=== PATIENT | male | born 1985 | race Caucasian/White ===

== ENCOUNTER 2017-01-21 13:16 | Emergency (ER) | payer MEDICARE, MEDICAID ==
[2017-01-21] MEDS ORDERED: ZYPREXA10 MG PO (13:20)
[2017-01-21] MEDS ORDERED: ZYPREXA20 MG PO (13:20)
--- NOTE | 2017-01-21 15:39 | EKG ---
[facility] [address] [place] [address] Signed Normal sinus rhythm Normal ECG No previous ECGs available Confirmed by DIMITRI STAPLES MD ([id number]) on 01/21/2017 3:39:34 PM Electronically Signed By: DIMITRI STAPLES MD 01/21/17 1539 PATIENT NAME: RADHA GOOD Electrocardiogram DATE OF : 83 PHYSICIAN: DIMITRI STAPLES MD REPORT #: [id number] REPORT IS CONFIDENTIAL AND NOT TO BE RELEASED WITHOUT AUTHORIZATION
== END 2017-01-22 20:10 ==
LOC: ED 13:16
DX: T14.91 Suicide attempt (principal); S92.515A Nondisplaced fracture of proximal phalanx of left lesser toe(s), initial encounter for closed fracture; S80.212A Abrasion, left knee, initial encounter; S80.211A Abrasion, right knee, initial encounter; S90.811A Abrasion, right foot, initial encounter; M25.512 Pain in left shoulder; M54.2 Cervicalgia; Y93.9 Activity, unspecified; Y92.9 Unspecified place or not applicable; Y99.9 Unspecified external cause status; Z79.899 Other long term (current) drug therapy
CPT/HCPCS: 71010; 72125; 73030; 73630; 80053; 81001; 82150; 82550; 84443; 84484; 85025; 85610; 85730; 86850; 86900; 86901; 90471; 90715; 93005; 93010; 96374; 96375; 99285; G0480; J1170; J1885; J2405; J7030

== ENCOUNTER 2017-02-08 01:27 | Emergency (ER) | payer MEDICARE, MEDICAID ==
[~2017-02-08] VITALS: Ht 185.4 cm; Wt 104.3 kg
[~2017-02-08 01:27] MED LIST: ZYPREXA10 MG PO; ZYPREXA20 MG PO
[2017-02-08] MEDS ORDERED: LITHIUM CARBON450 MG PO (01:42)
[2017-02-08] MEDS ORDERED: KEFLEX500 MG PO (01:44)
== END 2017-02-08 02:06 | disposition home or self-care (01) ==
LOC: ED 01:27
DX: L08.9 Local infection of the skin and subcutaneous tissue, unspecified (principal); S90.812D Abrasion, left foot, subsequent encounter; Z86.14 Personal history of Methicillin resistant Staphylococcus aureus infection; F31.9 Bipolar disorder, unspecified; F17.200 Nicotine dependence, unspecified, uncomplicated; Z79.899 Other long term (current) drug therapy; V49.9XXD Car occupant (driver) (passenger) injured in unspecified traffic accident, subsequent encounter
CPT/HCPCS: 99283

== ENCOUNTER 2017-06-17 19:45 | Emergency (ER) | payer MEDICARE, MEDICAID ==
[~2017-06-17] VITALS: Ht 185.4 cm; Wt 104.3 kg
[~2017-06-17 19:45] MED LIST changes: +KEFLEX500 MG PO; +LITHIUM CARBON450 MG PO
[2017-06-17] MEDS ORDERED: VENTOLIN HFA18 GM INH (23:51)
[2017-06-17] MEDS ORDERED: ZYPREXA10 MG PO (23:51)
== END 2017-06-18 00:05 | disposition home or self-care (01) ==
LOC: ED 19:45
DX: Z76.0 Encounter for issue of repeat prescription (principal); F25.0 Schizoaffective disorder, bipolar type; Z88.8 Allergy status to other drugs, medicaments and biological substances; Z79.899 Other long term (current) drug therapy
CPT/HCPCS: 99281

== ENCOUNTER 2018-10-02 12:54 | Emergency (ER) | payer MEDICARE, OTHER ==
[~2018-10-02] VITALS: Ht 185.4 cm; Wt 104.3 kg
[~2018-10-02 12:54] MED LIST changes: +LITHIUM CARBON300 MG PO; +METOPROLOL TART50 MG PO; +SEROQUEL300 MG PO; +VENTOLIN HFA18 GM INH
[2018-10-02] MEDS ORDERED: LITHIUM CARBON300 M1 PO (13:09)
--- OUTSIDE RECORDS SUMMARY | 2018-10-02 13:16 | XMS ---
PreManage Notification: RADHA GOOD Security Animal Services Officer Events No recent Security Events currently on file CRITERIA MET - [facility] - Has Care Guidelines - PDMP - [facility] - 2 Visits in 30 Days CARE PROVIDERS Savage Barragan [facility] 04/15/2018-Current PHONE: Unknown [facility] PHONE: Unknown Jazmyn has no Care Guidelines for this patient. Care History Medical/Surgical 04/15/2018 [facility] - PATIENT HAS AN APT WITH DR BARRAGAN ON 04/24 FOR FOLLOW UP TO ED VISIT. - Patient is currently established with [facility]. If patient is seen in the ED during business hours. Please contact CHWs at [facility]. Care Recommendation: This patient has had 5 or more Emergency Department visits in the last 12 months.\T\nbsp; Patient requires education on the scope and purpose of the ED as an acute care provider not a Primary Care Provider and should not be utilized for chronic conditions.\T\nbsp; These are guidelines and the provider should exercise clinical judgment when providing care. E.Oriana VISIT COUNT (12 MO.) [address] [place] [address] NANCY Vásquez TOTAL 8 NOTE: Visits indicate total known visits. ED/UCC VISIT TRACKING (12 MO.) 10/02/2018 12:55 [facility] [place] TYPE: Emergency COMPLAINT: - SOB, DIZZINESS 09/22/2018 14:25 [facility] [place] TYPE: Emergency COMPLAINT: - MEDICAL CLEARANCE DIAGNOSES: - Allergy status to other drugs, medicaments and biological substances status - Bipolar disorder, unspecified - Nicotine dependence, unspecified, uncomplicated - Other terminal operator (current) drug therapy 06/01/2018 22:08 [facility] [place] TYPE: Emergency COMPLAINT: - CHEST PAIN DIAGNOSES: - Acute bronchitis, unspecified - Schizoaffective disorder, unspecified - Chest pain, unspecified - Other terminal operator (current) drug therapy - Bipolar disorder, unspecified - Allergy status to other drugs, medicaments and biological substances status 05/14/2018 11:07 [facility] [place] TYPE: Emergency COMPLAINT: - L LEG WOUND/NON INJURY DIAGNOSES: - Encounter for other general examination 04/11/2018 14:14 [facility] [place] TYPE: Emergency COMPLAINT: - SEIZURE DIAGNOSES: - Unspecified convulsions - Bipolar disorder, unspecified - Allergy status to other drugs, medicaments and biological substances status - Other custodial (current) drug therapy 01/13/2018 17:39 [facility] [place] TYPE: Emergency COMPLAINT: - MED REFILL DIAGNOSES: - Bipolar disorder, unspecified - Allergy status to other drugs, medicaments and biological substances status - Encounter for issue of repeat prescription - Schizophrenia, unspecified - Other custodial (current) drug therapy 01/02/2018 09:46 [facility] TYPE: Emergency DIAGNOSES: - Shaking - chest pain 11/18/2017 11:47 [facility] [place] TYPE: Emergency COMPLAINT: - PNEUMONIA SENT FROM [facility] DIAGNOSES: - Hemoptysis - Acute bronchitis, unspecified INPATIENT VISIT TRACKING (12 MO.) No inpatient visits to display in this time frame [email or web address]
[2018-10-02] MEDS ORDERED: DOXYCYCLINE HY100 MG PO (14:58)
--- NOTE | 2018-10-02 16:34 | EKG ---
[facility] [address] [facility] [place], [place] [address] Signed Normal sinus rhythm Nonspecific ST abnormality Abnormal ECG When compared with ECG of 01-JUN-2018 22:14, No significant change was found Confirmed by SANDRA MORALES DO ([id number]) on 10/02/2018 4:34:00 PM Electronically Signed By: SANDRA MORALES DO 10/02/18 1634 PATIENT NAME: RADHA GOOD Electrocardiogram DATE OF : 83 PHYSICIAN: SANDRA MORALES DO REPORT #: [id number] REPORT IS CONFIDENTIAL AND NOT TO BE RELEASED WITHOUT AUTHORIZATION
== END 2018-10-02 15:19 | disposition home or self-care (01) ==
LOC: ED 12:54
DX: J18.9 Pneumonia, unspecified organism (principal); F31.9 Bipolar disorder, unspecified; F25.0 Schizoaffective disorder, bipolar type; Z88.8 Allergy status to other drugs, medicaments and biological substances; Z79.899 Other long term (current) drug therapy
CPT/HCPCS: 71046; 80053; 80178; 85025; 93005; 93010; 96360; 99284-25; J7030

== ENCOUNTER 2019-04-22 02:49 | Emergency (ER) | payer MEDICARE, OTHER ==
[~2019-04-22] VITALS: Ht 185.4 cm; Wt 108.9 kg
[~2019-04-22 02:49] MED LIST changes: +DOXYCYCLINE HY100 MG PO; +LITHIUM CARBON300 M1 PO
--- OUTSIDE RECORDS SUMMARY | 2019-04-22 02:52 | XMS ---
PreManage Notification: RADHA GOOD Security Medical Translator Events No recent Security Events currently on file CRITERIA MET - [facility] - Has Care Guidelines - PDMP CARE PROVIDERS Savage Barragan [facility] 04/15/2018-Current PHONE: Unknown [address] Primary Care Current PHONE: Unknown Guidelines Source: [facility] Guidelines Date: 10/03/2018 Care Coordination: Currently engaged in mental health services with [employer].\T\nbsp; Please contact [employer] with mental health concerns.\T\nbsp; [facility]: \T\nbsp; [phone]\T\nbsp; Ale[place]: [phone]. Care History Medical/Surgical 04/15/2018 [facility] - PATIENT HAS AN APT WITH DR BARRAGAN ON 04/24 FOR FOLLOW UP TO ED VISIT. - Patient is currently established with [facility]. If patient is seen in the ED during business hours. Please contact CHWs at [facility]. Care Recommendation: This patient has had 5 or more Emergency Department visits in the last 12 months.\T\nbsp; Patient requires education on the scope and purpose of the ED as an acute care provider not a Primary Care Provider and should not be utilized for chronic conditions.\T\nbsp; These are guidelines and the provider should exercise clinical judgment when providing care. E.D. VISIT COUNT (12 MO.) 5 NANCY Vásquez TOTAL 5 NOTE: Visits indicate total known visits. ED/UCC VISIT TRACKING (12 MO.) 04/22/2019 02:49 [facility] [place] TYPE: Emergency COMPLAINT: - OVERDOSE 10/02/2018 12:55 [facility] [place] TYPE: Emergency COMPLAINT: - SOB, DIZZINESS DIAGNOSES: - Dizziness and giddiness - Schizoaffective disorder, bipolar type - Bipolar disorder, unspecified - Allergy status to oth drug/meds/biol subst status - Other long term care social worker (current) drug therapy - Pneumonia, unspecified organism 09/22/2018 14:25 [facility] [place] TYPE: Emergency COMPLAINT: - MEDICAL CLEARANCE DIAGNOSES: - Allergy status to oth drug/meds/biol subst status - Bipolar disorder, unspecified - Nicotine dependence, unspecified, uncomplicated - Other long term care social worker (current) drug therapy 06/01/2018 22:08 [facility] [place] TYPE: Emergency COMPLAINT: - CHEST PAIN DIAGNOSES: - Acute bronchitis, unspecified - Schizoaffective disorder, unspecified - Chest pain, unspecified - Other long term care social worker (current) drug therapy - Bipolar disorder, unspecified - Allergy status to oth drug/meds/biol subst status 05/14/2018 11:07 [facility] [place] TYPE: Emergency COMPLAINT: - L LEG WOUND/NON INJURY DIAGNOSES: - Encounter for other general examination INPATIENT VISIT TRACKING (12 MO.) No inpatient visits to display in this time frame [id number]
[2019-04-22] MEDS ORDERED: SEROQUEL XR400 MG PO (02:58)
[2019-04-22] MEDS ORDERED: INDERAL LA120 MG PO (03:00)
[2019-04-22] MEDS ORDERED: LATUDA60 MG PO (03:00)
[2019-04-22] MEDS ORDERED: BUSPIRONE HCL15 MG PO (03:01)
[2019-04-22] MEDS ORDERED: VIAGRA100 MG PO (03:01)
== END 2019-04-22 03:30 | disposition home or self-care (01) ==
LOC: ED 02:49
DX: T56.891A Toxic effect of other metals, accidental (unintentional), initial encounter (principal); F31.9 Bipolar disorder, unspecified; F25.9 Schizoaffective disorder, unspecified; Z88.8 Allergy status to other drugs, medicaments and biological substances; Z79.899 Other long term (current) drug therapy
CPT/HCPCS: 99283

== ENCOUNTER 2019-07-21 21:20 | Emergency (ER) | payer MEDICARE, OTHER ==
[~2019-07-21] VITALS: Ht 188 cm; Wt 99.8 kg
[~2019-07-21 21:20] MED LIST changes: +BUSPIRONE HCL15 MG PO; +INDERAL LA120 MG PO; +LATUDA60 MG PO; +SEROQUEL XR400 MG PO; +VIAGRA100 MG PO
--- OUTSIDE RECORDS SUMMARY | 2019-07-21 21:24 | XMS ---
PreManage Notification: RADHA GOOD Security Filtration Operator Events No recent Security Events currently on file CRITERIA MET - [facility] CARE PROVIDERS LORI RAMIREZ Nurse Practitioner: Family 04/22/2019-Current PHONE: Unknown Savage Barragan [facility] 04/15/2018-Current PHONE: Unknown [facility] [address] PHONE: Unknown Guidelines Source: [facility] Guidelines Date: 10/03/2018 Care Coordination: Currently engaged in mental health services with [facility].\T\nbsp; [facility].\T\nbsp; [place] [facility]: \T\nbsp; [phone]\T\nbsp; [place]: [phone]. Care History Medical/Surgical 04/15/2018 [facility] - PATIENT CHANGING PCP- TO LORI RAMIREZ. - Patient is currently established with [facility]. If patient is seen in the ED during business hours. Please contact CHWs at [facility]. Care Recommendation: This patient has had 5 [...] providing care. E.D. VISIT COUNT (12 MO.) 4 [facility]. TOTAL 4 NOTE: Visits indicate total known visits. ED/UCC VISIT TRACKING (12 MO.) 07/21/2019 21:21 [facility] [place] TYPE: Emergency COMPLAINT: - DENTAL PAIN 04/22/2019 02:49 [facility] [place] TYPE: Emergency COMPLAINT: - OVERDOSE DIAGNOSES: - Bipolar disorder, unspecified - Other ad terminal makeup operator (current) drug therapy - Allergy status to oth drug/meds/biol subst status - Toxic effect of oth metals, accidental (unintentional), init - Schizoaffective disorder, unspecified 10/02/2018 12:55 [facility] [place] TYPE: Emergency COMPLAINT: - SOB, DIZZINESS DIAGNOSES: - Dizziness and giddiness - Schizoaffective disorder, bipolar type - Bipolar disorder, unspecified - Allergy status to oth drug/meds/biol subst status - Other intermediate (current) drug therapy - Pneumonia, unspecified organism 09/22/2018 14:[address] [facility] [place] TYPE: Emergency COMPLAINT: - MEDICAL CLEARANCE DIAGNOSES: - Allergy status to oth drug/meds/biol subst status - Bipolar disorder, unspecified - Nicotine dependence, unspecified, uncomplicated - Other ad terminal makeup operator (current) drug therapy INPATIENT VISIT TRACKING (12 MO.) No inpatient visits to display in this time frame [email or web address]
[2019-07-21] MEDS ORDERED: PENICILLIN V P500 MG PO (21:38)
== END 2019-07-21 21:45 | disposition home or self-care (01) ==
LOC: ED 21:20
DX: K02.9 Dental caries, unspecified (principal); I10 Essential (primary) hypertension; F31.9 Bipolar disorder, unspecified
CPT/HCPCS: 99283

== ENCOUNTER 2020-01-06 23:07 | Emergency (ER) | payer MEDICARE, OTHER ==
[~2020-01-06] VITALS: Ht 185.4 cm; Wt 90.7 kg
[~2020-01-06 23:07] MED LIST changes: +PENICILLIN V P500 MG PO
--- OUTSIDE RECORDS SUMMARY | 2020-01-06 23:10 | XMS ---
PreManage Notification: RADHA GOOD Security Public Bath Attendant Events No recent Security Events currently on file CRITERIA MET - [facility] - Has Care Guidelines CARE PROVIDERS LORI RAMIREZ Nurse Practitioner: Family 04/22/2019-Current PHONE: [phone] Savage Barragan [facility] 04/15/2018-Current PHONE: [phone] [facility] Guidelines Date: 10/03/2018 Care Coordination: Currently engaged in mental health services with [facility].\T\nbsp; Please contact [employer] with mental health concerns.\T\nbsp; [place]: \T\nbsp; [phone]\T\nbsp; [place]: [phone]. Care History Medical/Surgical 04/15/2018 [facility] - PATIENT CHANGING PCP- TO LORI RAMIREZ. - Patient is currently established with [facility]. If patient is seen in the ED during business hours. Please contact CHWs at [facility]. Care Recommendation: This patient has [...] providing care. E.D. VISIT COUNT (12 MO.) 3 NANCY Vásquez TOTAL 3 NOTE: Visits indicate total known visits. ED/UCC VISIT TRACKING (12 MO.) 01/06/2020 23:08 [facility] [place] TYPE: Emergency COMPLAINT: - DIZZINESS/WEAKNESS 07/21/2019 21:21 [facility] [place] TYPE: Emergency COMPLAINT: - DENTAL PAIN DIAGNOSES: - Dental caries, unspecified - Bipolar disorder, unspecified - Essential (primary) hypertension - Other specified disorders of teeth and supporting structures 04/22/2019 02:49 [facility] [place] TYPE: Emergency COMPLAINT: - OVERDOSE DIAGNOSES: - Bipolar disorder, unspecified - Other halfway (current) drug therapy - Allergy status to other drugs, medicaments and biological sub - Toxic effect of other metals, accidental (unintentional), ini - Schizoaffective disorder, unspecified INPATIENT VISIT TRACKING (12 MO.) No inpatient visits to display in this time frame [email or web address]
--- NOTE | 2020-01-07 12:59 | EKG ---
[facility] [address] [facility] [place] [address] Signed Sinus bradycardia with sinus arrhythmia Nonspecific T wave abnormality Abnormal ECG When compared with ECG of 02-OCT-2018 13:04, Nonspecific T wave abnormality now evident in Anterolateral leads Confirmed by TIFFANY JACK MD ([id number]) on 01/07/2020 12:59:08 PM Electronically Signed By: TIFFANY JACK MD 01/07/20 1259 PATIENT NAME: RADHA GOOD Electrocardiogram DATE OF : 83 PHYSICIAN: TIFFANY JACK MD REPORT #: [id number] REPORT IS CONFIDENTIAL AND NOT TO BE RELEASED WITHOUT AUTHORIZATION
== END 2020-01-07 00:45 | disposition home or self-care (01) ==
LOC: ED 23:07
DX: R42 Dizziness and giddiness (principal); R11.2 Nausea with vomiting, unspecified; R19.7 Diarrhea, unspecified; H53.8 Other visual disturbances; F31.9 Bipolar disorder, unspecified; F20.9 Schizophrenia, unspecified; I10 Essential (primary) hypertension; Z88.8 Allergy status to other drugs, medicaments and biological substances; Z79.899 Other long term (current) drug therapy
CPT/HCPCS: 80053; 80178; 85025; 93005; 93010; 96360; 99284-25; J7030

== ENCOUNTER 2020-05-05 16:12 | Emergency (ER) | payer MEDICARE, OTHER ==
[~2020-05-05] VITALS: Ht 185.4 cm; Wt 90.7 kg
--- OUTSIDE RECORDS SUMMARY | 2020-05-05 16:14 | XMS ---
PreManage Notification: RADHA GOOD Security Field Crew Chief Events No recent Security Events currently on file CRITERIA MET - [facility] - Has Care Guidelines - PDMP CARE PROVIDERS LORI RAMIREZ Nurse Practitioner: Family 04/22/2019-Current PHONE: [phone] Savage Barragan [facility] 04/15/2018-Current PHONE: [phone] Care Guidelines exist for the following facilities: [facility] ( 10/03/2018 ) Care History Medical/Surgical 04/15/2018 [facility] - PATIENT CHANGING PCP- TO LORI RAMIREZ. - Patient is currently established with [facility]. If patient is seen in the ED during business hours. Please contact CHWs at [facility]. Care Recommendation: This patient has had [...] known visits. ED/UCC VISIT TRACKING (12 MO.) 05/05/2020 16:12 [facility] [place] TYPE: Emergency COMPLAINT: - SKIN PROBLEM ON R ARM 01/06/2020 23:08 [facility] [place] TYPE: Emergency COMPLAINT: - DIZZINESS/WEAKNESS DIAGNOSES: - Other superintendent marine oil terminal (current) drug therapy - Nausea with vomiting, unspecified - Bipolar disorder, unspecified - Dizziness and giddiness - Schizophrenia, unspecified - Allergy status to other drugs, medicaments and biological substances - Other visual disturbances - Essential (primary) hypertension - Diarrhea, unspecified 07/21/2019 21:21 [facility] [place] TYPE: Emergency COMPLAINT: - DENTAL PAIN DIAGNOSES: - Dental caries, unspecified - Bipolar disorder, unspecified - Essential (primary) hypertension - Other specified disorders of teeth and supporting structures INPATIENT VISIT TRACKING (12 MO.) No inpatient visits to display in this time frame [email or web address]
[2020-05-05] MEDS ORDERED: BACTRIM DS TAB1 EACH PO (16:55)
[2020-05-05] MEDS ORDERED: MUPIROCIN15 GM TOP (16:55)
== END 2020-05-05 17:04 | disposition home or self-care (01) ==
LOC: ED 16:12
DX: L03.113 Cellulitis of right upper limb (principal); F31.9 Bipolar disorder, unspecified; F25.9 Schizoaffective disorder, unspecified; I10 Essential (primary) hypertension; Z88.8 Allergy status to other drugs, medicaments and biological substances; Z79.899 Other long term (current) drug therapy
CPT/HCPCS: 99283

== ENCOUNTER 2020-06-01 07:11 | Emergency (ER) | payer MEDICARE, OTHER ==
[~2020-06-01] VITALS: Ht 185.4 cm; Wt 90.7 kg
[~2020-06-01 07:11] MED LIST changes: +BACTRIM DS TAB1 EACH PO; +MUPIROCIN15 GM TOP
--- OUTSIDE RECORDS SUMMARY | 2020-06-01 07:14 | XMS ---
PreManage Notification: RADHA GOOD Security Metal Tile Lather Events No recent Security Events currently on file CRITERIA MET - [facility] - Has Care Guidelines - PDMP - [facility] - 2 Visits in 30 Days CARE PROVIDERS LORI RAMIREZ Nurse Practitioner: Family 04/22/2019-Current PHONE: [phone] Savage Barragan [facility] 04/15/2018-Current PHONE: [phone] Care Guidelines exist for the following facilities: [facility] ( 10/03/2018 ) Care History Medical/Surgical 05/09/2020 [facility] WRONG PHONE NUMBER Please update patient phone number when seen. CHW needs to contact patient 04/15/2018 [facility] - PATIENT CHANGING PCP- TO LORI RAMIREZ. - Patient is currently established with [facility]. If patient is seen in the ED during business hours. Please contact CHWs at [facility]. Care Recommendation: This patient has [...] care. E.D. VISIT COUNT (12 MO.) 4 [facility]. TOTAL 4 NOTE: Visits indicate total known visits. ED/UCC VISIT TRACKING (12 MO.) 06/01/2020 07:12 [facility] [place] TYPE: Emergency COMPLAINT: - POSSIBLE MEDICATION REACTION 05/05/2020 16:[address] [facility] [place] TYPE: Emergency COMPLAINT: - SKIN PROBLEM ON R ARM DIAGNOSES: - Cellulitis of right upper limb - Schizoaffective disorder, unspecified - Allergy status to other drugs, medicaments and biological substances - Essential (primary) hypertension - Bipolar disorder, unspecified - Other plate and weld inspector (current) drug therapy 01/06/2020 23:[address] [facility] [place] TYPE: Emergency COMPLAINT: - DIZZINESS/WEAKNESS DIAGNOSES: - Other plate and weld inspector (current) drug therapy - Nausea with vomiting, [...] visits to display in this time frame [email or web address]
[2020-06-01] MEDS ORDERED: ONDANSETRON ODT8 MG PO ×2 (07:22→09:19)
[2020-06-01] MEDS ORDERED: BUPRENORPHIN-N1 EACH SL (07:22)
[2020-06-01] MEDS ORDERED: OMEPRAZOLE20 MG PO (09:19)
--- NOTE | 2020-06-01 10:45 | EKG ---
[facility] [address] [facility] [place], [place] [address] Signed Normal sinus rhythm Normal ECG When compared with ECG of 06-JAN-2020 23:29, No significant change was found Confirmed by SANDRA MORALES DO ([id number]) on 06/01/2020 10:45:28 AM Electronically Signed By: SANDRA MORALES DO 06/01/20 1045 PATIENT NAME: GOODRADHA CARRILLO ISELA Electrocardiogram DATE OF : 83 PHYSICIAN: SANDRA MORALES DO REPORT #: [id number] REPORT IS CONFIDENTIAL AND NOT TO BE RELEASED WITHOUT AUTHORIZATION
== END 2020-06-01 09:25 | disposition home or self-care (01) ==
LOC: ED 07:11
DX: R53.81 Other malaise (principal); R51.9 Headache, unspecified; R10.13 Epigastric pain; F31.9 Bipolar disorder, unspecified; I10 Essential (primary) hypertension; Z88.8 Allergy status to other drugs, medicaments and biological substances; Z79.899 Other long term (current) drug therapy
CPT/HCPCS: 71045; 80053; 80178; 81001; 83735; 84443; 84484; 85025; 93005; 93010; 96374; 99284-25; J2405; J7030

== ENCOUNTER 2020-07-10 18:41 | Emergency (ER) | payer MEDICARE, OTHER ==
[~2020-07-10] VITALS: Ht 185.4 cm; Wt 90.7 kg
[~2020-07-10 18:41] MED LIST changes: +BUPRENORPHIN-N1 EACH SL; +OMEPRAZOLE20 MG PO; +ONDANSETRON ODT8 MG PO
--- OUTSIDE RECORDS SUMMARY | 2020-07-10 18:44 | XMS ---
PreManage Notification: RADHA GOOD Security Fitness Instructor Events No recent Security Events currently on file CRITERIA MET - [facility] - Has Care Guidelines - PDMP CARE PROVIDERS LORI RAMIREZ Nurse Practitioner: Family 04/22/2019-Current PHONE: [phone] Savage Barragan [facility] 04/15/2018-Current PHONE: [phone] Care Guidelines exist for the following facilities: [facility] ( 10/03/2018 ) Care History Medical/Surgical 05/09/2020 [facility] WRONG PHONE NUMBER Please update patient phone number when seen. CHW needs to contact patient 04/15/2018 [facility] - PATIENT CHANGING PCP- TO LORI RAMIREZ. - Patient is currently established with [facility]. If patient is seen in the ED during business hours. Please contact CHWs at [facility]. Care Recommendation: This patient has had [...] care. E.D. VISIT COUNT (12 MO.) 5 [facility]. TOTAL 5 NOTE: Visits indicate total known visits. ED/UCC VISIT TRACKING (12 MO.) 07/10/2020 18:41 [place] [facility]: Emergency COMPLAINT: - HAND SWELLING 06/01/2020 07:12 [facility] [place] [facility] [place] TYPE: Emergency COMPLAINT: - POSSIBLE MEDICATION REACTION DIAGNOSES: - Other half-way (current) drug therapy - Bipolar disorder, unspecified - Allergy status to other drugs, medicaments and biological substances - Epigastric pain - Headache, unspecified - Other malaise - Essential (primary) hypertension 05/05/2020 16:12 [facility] [place] [facility] [place] TYPE: Emergency COMPLAINT: - SKIN PROBLEM ON R ARM DIAGNOSES: - Cellulitis of right upper limb - Schizoaffective disorder, unspecified - Allergy status to other drugs, medicaments and biological substances - Essential (primary) hypertension - Bipolar disorder, unspecified - Other half-way (current) drug therapy 01/06/2020 23:[address] [facility] [address] [facility] [place] TYPE: Emergency COMPLAINT: - DIZZINESS/WEAKNESS DIAGNOSES: - Other half-way (current) drug therapy - Nausea with vomiting, [...] visits to display in this time frame [email or web address]
[2020-07-10] MEDS ORDERED: DEPAKOTE ER500 MG PO (18:54)
[2020-07-10] MEDS ORDERED: OLANZAPINE10 MG PO (18:54)
[2020-07-10] MEDS ORDERED: BACTRIM DS TAB1 EACH PO (19:07)
[2020-07-10] MEDS ORDERED: CEPHALEXIN500 MG PO (19:07)
== END 2020-07-10 19:14 | disposition home or self-care (01) ==
LOC: ED 18:41
DX: L03.113 Cellulitis of right upper limb (principal); I10 Essential (primary) hypertension; Z87.891 Personal history of nicotine dependence; Z88.8 Allergy status to other drugs, medicaments and biological substances; Z79.899 Other long term (current) drug therapy
CPT/HCPCS: 99283

== ENCOUNTER 2020-10-28 01:09 | Emergency (ER) | payer MEDICARE, OTHER ==
[~2020-10-28] VITALS: Ht 185.4 cm; Wt 90.7 kg
[~2020-10-28 01:09] MED LIST changes: +CEPHALEXIN500 MG PO; +DEPAKOTE ER500 MG PO; +OLANZAPINE10 MG PO; +SUBOXONE 8 MG-1 EAC1 SL
--- OUTSIDE RECORDS SUMMARY | 2020-10-28 01:12 | XMS ---
PreManage Notification: RADHA GOOD Security Renal Nurse Events 1 event(s) in the past 18 months Most recent security events: Elopement at [facility] 09/06/2020 17:41 - Other Details: PATIENT LWBS. CRITERIA MET - Group Notification - PDMP CARE PROVIDERS LORI RAMIREZ Nurse Practitioner: Family 04/22/2019-Current PHONE: [phone] Savage Barragan [facility] 04/15/2018-Current PHONE: [phone] Care Guidelines exist for the following facilities: [facility] ( 08/01/2020 ) Care History Medical/Surgical 09/07/2020 [facility] - CHW SPOKE WITH [facility]- PATIENT IS CURRENTLY AT [facility] AND THEY ARE TRYING TO HELP PATIENT FIND PLACEMENT FOR TREATMENT. 07/12/2020 [facility] - CHW CALLED PATIENT- WENT STRAIGHT TO VOICEMAIL- AND VOICEMAIL BOX IS NOT SET UP. 05/09/2020 [facility] WRONG PHONE NUMBER Please update patient phone number when seen. CHW needs to contact patient E.D. V[facility] (12 MO.) [facility] TOTAL 6 NOTE: Visits indicate total known visits. ED/UCC VISIT TRACKING (12 MO.) 10/28/2020 01:09 [facility] [place] [facility] COMPLAINT: - POSSIBLE ALLERGIC REACTION 09/06/2020 17:41 [facility] [place] TYPE: Emergency COMPLAINT: - ANXIETY 07/10/2020 18:41 [facility] [place] TYPE: Emergency COMPLAINT: - HAND SWELLING DIAGNOSES: - Personal history of nicotine dependence - Cellulitis of right upper limb - Other mcfp (current) drug therapy - Essential (primary) hypertension - Allergy status to other drugs, medicaments and biological substances 06/01/2020 07:12 [facility] [place] TYPE: Emergency COMPLAINT: - POSSIBLE MEDICATION REACTION DIAGNOSES: - Headache, unspecified - Other roasterman (current) drug therapy - Allergy status to other drugs, medicaments and biological substances - Bipolar disorder, unspecified - Allergy status to other drugs, medicaments and biological substances - Epigastric pain - Headache, unspecified - Other malaise - Essential (primary) hypertension 05/05/2020 16:12 [facility] [place] TYPE: Emergency COMPLAINT: - SKIN PROBLEM ON R ARM DIAGNOSES: - Cellulitis of right upper limb - Schizoaffective disorder, unspecified - Allergy status to other drugs, medicaments and biological substances - Essential (primary) hypertension - Bipolar disorder, unspecified - Other roasterman (current) drug therapy 01/06/2020 23:08 [facility] [place] TYPE: Emergency COMPLAINT: - DIZZINESS/WEAKNESS DIAGNOSES: - Other roasterman (current) drug therapy - Nausea with vomiting, unspecified - Bipolar disorder, unspecified - Dizziness and giddiness - Schizophrenia, unspecified - Allergy status to other drugs, medicaments and biological substances - Other visual disturbances - Essential (primary) hypertension - Diarrhea, unspecified INPATIENT VISIT TRACKING (12 MO.) No inpatient visits to display in this time frame [email or web address]
[2020-10-28] MEDS ORDERED: LATUDA80 MG PO (01:22)
[2020-10-28] MEDS ORDERED: TRAZODONE HCL100 MG PO (01:22)
[2020-10-28] MEDS ORDERED: BUSPIRONE HCL15 MG PO (01:23)
== END 2020-10-28 02:06 | disposition home or self-care (01) ==
LOC: ED 01:09
DX: T78.1XXA Other adverse food reactions, not elsewhere classified, initial encounter (principal); I10 Essential (primary) hypertension; Z87.891 Personal history of nicotine dependence; Z88.8 Allergy status to other drugs, medicaments and biological substances; Z79.899 Other long term (current) drug therapy
CPT/HCPCS: 99283

== ENCOUNTER 2020-10-30 16:18 | Emergency (ER) | payer MEDICARE, OTHER ==
[~2020-10-30] VITALS: Ht 185.4 cm; Wt 90.7 kg
[~2020-10-30 16:18] MED LIST changes: +LATUDA80 MG PO; +TRAZODONE HCL100 MG PO
--- OUTSIDE RECORDS SUMMARY | 2020-10-30 16:22 | XMS ---
PreManage Notification: RADHA GOOD Security Wood Piler Events 1 event(s) in the past 18 months Most recent security events: Elopement at [facility] 09/06/2020 17:41 - Other Details: PATIENT LWBS. CRITERIA MET - Group Notification - 6 ED Visits in 6 Months - [facility] - 2 Visits in 30 Days CARE PROVIDERS Savage Barragan [facility] 04/15/2018-Current PHONE: [phone] Care Guidelines exist for the following facilities: [facility] ( 08/01/2020 ) Care History Medical/Surgical 09/07/2020 [facility] - CHW SPOKE WITH [facility]- PATIENT IS CURRENTLY AT [facility] AND THEY ARE TRYING TO HELP PATIENT FIND PLACEMENT FOR TREATMENT. 07/12/2020 [facility] - CHW CALLED PATIENT- WENT STRAIGHT TO VOICEMAIL- AND VOICEMAIL BOX IS NOT SET UP. 05/09/2020 [facility] WRONG PHONE NUMBER Please update patient phone number when seen. CHW needs to contact patient [place] VISIT COUNT (12 MO.) 7 NANCY Vásquez TOTAL 7 NOTE: Visits indicate total known visits. ED/UCC VISIT TRACKING (12 MO.) 10/30/2020 16:18 [place]Y [place] TYPE: Emergency COMPLAINT: - INFECTION IN L FOOT, N/V 10/28/2020 01:09 [facility] [place] Guerra [place] TYPE: Emergency COMPLAINT: - POSSIBLE ALLERGIC REACTION 09/06/2020 17:41 [facility] [place] [facility] [place] TYPE: Emergency COMPLAINT: - ANXIETY 07/10/2020 18:41 [facility] [place] TYPE: Emergency COMPLAINT: - HAND SWELLING DIAGNOSES: - Personal history of nicotine dependence - Cellulitis of right upper limb - Other rn long term care (current) drug therapy - Essential (primary) hypertension - Allergy status to other drugs, medicaments and biological substances 06/01/2020 07:12 [facility] [place] TYPE: Emergency COMPLAINT: - POSSIBLE MEDICATION REACTION DIAGNOSES: - Headache, unspecified - Other mcc (current) drug therapy - Allergy status to other drugs, medicaments and biological substances - Bipolar disorder, unspecified - Allergy status to other drugs, medicaments and biological substances - Epigastric pain - Headache, unspecified - Other malaise - Essential (primary) hypertension 05/05/2020 16:12 NANCY [place] TYPE: Emergency COMPLAINT: - SKIN PROBLEM ON R ARM DIAGNOSES: - Cellulitis of right upper limb - Allergy status to other drugs, medicaments and biological substances - Schizoaffective disorder, unspecified - Allergy status to other drugs, medicaments and biological substances - Essential (primary) hypertension - Bipolar disorder, unspecified - Other mcc (current) drug therapy 01/06/2020 23:08 NANC[place] TYPE: Emergency COMPLAINT: - DIZZINESS/WEAKNESS DIAGNOSES: - Other mcc (current) drug therapy - Nausea with vomiting, unspecified - Bipolar disorder, unspecified - Dizziness and giddiness - Schizophrenia, unspecified - Allergy status to other drugs, medicaments and biological substances - Other visual disturbances - Essential (primary) hypertension - Diarrhea, unspecified INPATIENT VISIT TRACKING (12 MO.) No inpatient visits to display in this time frame [email or web address]
[2020-10-30] MEDS ORDERED: CEPHALEXIN500 MG PO (17:03)
== END 2020-10-30 17:13 | disposition home or self-care (01) ==
LOC: ED 16:18
DX: L60.0 Ingrowing nail (principal); I10 Essential (primary) hypertension; Z88.8 Allergy status to other drugs, medicaments and biological substances; Z79.899 Other long term (current) drug therapy
CPT/HCPCS: 99283

== ENCOUNTER 2020-11-08 14:59 | Emergency (ER) | payer MEDICARE, OTHER ==
[~2020-11-08] VITALS: Ht 185.4 cm; Wt 90.7 kg
--- OUTSIDE RECORDS SUMMARY | 2020-11-08 15:04 | XMS ---
PreManage Notification: RADHA GOOD Security Endorsement Clerk Events 1 event(s) in the past 18 months Most recent security events: Elopement at [facility] 09/06/2020 17:41 - Other Details: PATIENT LWBS. CRITERIA MET - Group Notification - 6 ED Visits in 6 Months - [facility] - Has Care Guidelines - [facility] - 2 Visits in 30 Days CARE PROVIDERS Savage Barragan [facility] 04/15/2018-Current PHONE: [phone] Care Guidelines exist for the following facilities: [facility] ( 08/01/2020 ) Care History Medical/Surgical 10/31/2020 [facility] - PATIENT CURRENTLY ON A PAIN CONTRACT WITH DR DEMETRI ODELL. 10/31/2020 [facility] - W CALLED PATIENT 3X- NO ANSWER AND VOICEMAIL BOX IS FULL. 09/07/2020 [facility] - [facility] PATIENT IS CURRENTLY AT [facility] AND THEY ARE TRYING TO HELP PATIENT FIND PLACEMENT FOR TREATMENT. E.D. VISIT COUNT (12 MO.) [address] [facility] [address] [facility]ider TOTAL 8 NOTE: Visits indicate total known visits. ED/UCC VISIT TRACKING (12 MO.) 11/08/2020 15:00 NANCY Law [place] TYPE: Emergency COMPLAINT: - DIFFICULTY BREATHING 10/30/2020 16:18 NANCY Law [place] TYPE: Emergency COMPLAINT: - INFECTION IN L FOOT, N/V DIAGNOSES: - Ingrowing nail - Essential (primary) hypertension - Other buttermilk drier operator (current) drug therapy - Allergy status to other drugs, medicaments and biological substances 10/28/2020 01:09 [place] Guerra [place] TYPE: Emergency COMPLAINT: - ALLERGIC REACTION DIAGNOSES: - Other buttermilk drier operator (current) drug therapy - Allergy status to other drugs, medicaments and biological substances - Personal history of nicotine dependence - Other adverse food reactions, not elsewhere classified, initial encounter - Essential (primary) hypertension 09/06/2020 17:41 NANCY Law [place] TYPE: Emergency COMPLAINT: - ANXIETY 07/10/2020 18:41 NANCY Law [place] TYPE: Emergency COMPLAINT: - HAND SWELLING DIAGNOSES: - Personal history of nicotine dependence - Cellulitis of right upper limb - Other buttermilk drier operator (current) drug therapy - Essential (primary) hypertension - Allergy status to other drugs, medicaments and biological substances 06/01/2020 07:12 [place] Gu[place] TYPE: Emergency COMPLAINT: - POSSIBLE MEDICATION REACTION DIAGNOSES: - Headache, unspecified - Other buttermilk drier operator (current) drug therapy - Allergy status to other drugs, medicaments and biological substances - Bipolar disorder, unspecified - Allergy status to other drugs, medicaments and biological substances - Epigastric pain - Headache, unspecified - Other malaise - Essential (primary) hypertension 05/05/2020 16:12 [place] Gu[place] TYPE: Emergency COMPLAINT: - SKIN PROBLEM ON R ARM DIAGNOSES: - Cellulitis of right upper limb - Allergy status to other drugs, medicaments and biological substances - Schizoaffective disorder, unspecified - Allergy status to other drugs, medicaments and biological substances - Essential (primary) hypertension - Bipolar disorder, unspecified - Other buttermilk drier operator (current) drug therapy 01/06/2020 23:08 [place]ANC[place] Gu[place] TYPE: Emergency COMPLAINT: - DIZZINESS/WEAKNESS DIAGNOSES: - Other mcfp (current) drug therapy - Nausea with vomiting, unspecified - Bipolar disorder, unspecified - Dizziness and giddiness - Schizophrenia, unspecified - Allergy status to other drugs, medicaments and biological substances - Other visual disturbances - Essential (primary) hypertension - Diarrhea, unspecified INPATIENT VISIT TRACKING (12 MO.) No inpatient visits to display in this time frame [email or web address]
[2020-11-08] MEDS ORDERED: VENTOLIN HFA18 GM INH (16:34)
== END 2020-11-08 16:42 | disposition home or self-care (01) ==
LOC: ED 14:59
DX: J45.909 Unspecified asthma, uncomplicated (principal); I10 Essential (primary) hypertension; Z88.8 Allergy status to other drugs, medicaments and biological substances; Z79.899 Other long term (current) drug therapy
CPT/HCPCS: 71046; 99284-25

== ENCOUNTER 2020-11-14 14:16 | Emergency (ER) | payer MEDICARE, OTHER ==
[~2020-11-14] VITALS: Ht 185.4 cm; Wt 90.7 kg
--- OUTSIDE RECORDS SUMMARY | 2020-11-14 14:20 | XMS ---
PreManage Notification: RADHA GOOD Security Dental Hygiene Professor Events 1 event(s) in the past 18 months Most recent security events: Elopement at [facility] 09/06/2020 17:41 - Other Details: PATIENT LWBS. CRITERIA MET - Group Notification - 6 ED Visits in 6 Months - [facility] - Has Care Guidelines - PDMP - [facility] - 2 Visits in 30 Days CARE PROVIDERS Savage Barragan [facility] 04/15/2018-Current PHONE: [phone] Care Guidelines exist for the following facilities: [facility] ( 08/01/2020 ) Care History Medical/Surgical 11/09/2020 [facility] - W HAS MADE MULTIPLE ATTEMPTS TO CONTACT PATIENT- DOES NOT ANSWER HIS PHONE AND OR RESPOND TO MESSAGES. 10/31/2020 [facility] - PATIENT CURRENTLY ON A PAIN CONTRACT WITH DR DEMETRI ODELL. 10/31/2020 [facility] - W CALLED PATIENT 3X- NO ANSWER AND VOICEMAIL BOX IS FULL. E.D. VISIT COUNT (12 MO.) [address] [facility] TOTAL 9 NOTE: Visits indicate total known visits. ED/UCC VISIT TRACKING (12 MO.) 11/14/2020 14:17 NANCY Law [place] TYPE: Emergency COMPLAINT: - RT LEG SKIN ISSUE 11/08/2020 15:00 NANCY Law [place] TYPE: Emergency COMPLAINT: - DIFFICULTY BREATHING DIAGNOSES: - Allergy status to other drugs, medicaments and biological substances - Other longterm (current) drug therapy - Unspecified asthma, uncomplicated - Essential (primary) hypertension - Cough 10/30/2020 16:18 NANCY [place] TYPE: Emergency COMPLAINT: - INFECTION IN L FOOT, N/V DIAGNOSES: - Ingrowing nail - Essential (primary) hypertension - Other longterm (current) drug therapy - Allergy status to other drugs, medicaments and biological substances 10/28/2020 01:09 NANCY Law [place] TYPE: Emergency COMPLAINT: - ALLERGIC REACTION DIAGNOSES: - Other longterm (current) drug therapy - Allergy status to [...] Cellulitis of right upper limb - Other longterm (current) drug therapy - Essential (primary) hypertension - Allergy status to other drugs, medicaments and biological substances 06/01/2020 07:12 NANCY Law [place] TYPE: Emergency COMPLAINT: - POSSIBLE MEDICATION REACTION DIAGNOSES: - Headache, unspecified - Other middle or intermediate school principal (current) drug therapy - Allergy status to [...] hypertension - Bipolar disorder, unspecified - Other longterm (current) drug therapy 01/06/2020 23:[address] [facility] [address] [facility] [place] TYPE: Emergency COMPLAINT: - DIZZINESS/WEAKNESS DIAGNOSES: - Other longterm (current) drug therapy - Nausea with vomiting, unspecified - Bipolar disorder, unspecified - Dizziness and giddiness - Schizophrenia, unspecified - Allergy status to other drugs, medicaments and biological substances - Other visual disturbances - Essential (primary) hypertension - Diarrhea, unspecified INPATIENT VISIT TRACKING (12 MO.) No inpatient visits to display in this time frame [email or web address]
[2020-11-14] MEDS ORDERED: BACTRIM DS TAB1 EACH PO (14:50)
== END 2020-11-14 15:04 | disposition home or self-care (01) ==
LOC: ED 14:16
DX: L03.211 Cellulitis of face (principal); I10 Essential (primary) hypertension; Z88.8 Allergy status to other drugs, medicaments and biological substances; Z79.899 Other long term (current) drug therapy
CPT/HCPCS: 99283

== ENCOUNTER 2020-11-19 19:59 | Emergency (ER) | payer MEDICARE, OTHER ==
[~2020-11-19] VITALS: Ht 185.4 cm; Wt 86.2 kg
--- OUTSIDE RECORDS SUMMARY | 2020-11-19 20:02 | XMS ---
PreManage Notification: RADHA GOOD Security Correspondence Specialist Events 1 event(s) in the past 18 months Most recent security events: Elopement at [facility] 09/06/2020 17:41 - Other Details: PATIENT LWBS. CRITERIA MET - Group Notification - 6 ED Visits in 6 Months - [facility] - Has Care Guidelines - PDMP - [facility] - 2 Visits in 30 Days CARE PROVIDERS Savage Barragan [facility] 04/15/2018-Current PHONE: [phone] Care Guidelines exist for the following facilities: [facility] ( 08/01/2020 ) Care History Medical/Surgical 11/16/2020 [facility] - CHW RECEIVED CASE MGMNT CONSULT TO HELP PATIENT NAVIGATE INSURANCE AND HELP WITH PRIMARY CARE SET UP. - CHW CALLED PATIENT- NO ANSWER VOICEMAIL BOX NOT SET UP. - NO PCP LETTER SENT ALONG WITH LIST OF PROVIDERS IN THE AREA. - IF PATIENT IS SEEN IN THE ED DURING THE WEEK - PLEASE CONTACT CASE MANAGEMENT DEPT TO SEE PATIENT. 11/09/2020 [facility] - CHW HAS MADE MULTIPLE ATTEMPTS TO CONTACT PATIENT- DOES NOT ANSWER HIS PHONE AND OR RESPOND TO MESSAGES. 10/31/2020 [facility] - PATIENT CURRENTLY ON A PAIN CONTRACT WITH DR DEMETRI RAMOS E.D. VIS[facility] (12 MO.) [facility] NOTE: Visits indicate total known visits. ED/UCC VISIT TRACKING (12 MO.) 11/19/2020 20:00 [facility] [place] [facility] COMPLAINT: - HAND NUMBNESS 11/14/2020 14:17 NANCY Law [place] TYPE: Emergency COMPLAINT: - RT LEG SKIN ISSUE DIAGNOSES: - Other exterminator termite (current) drug therapy - Allergy status to other drugs, medicaments and biological substances - Essential (primary) hypertension - Cellulitis of face 11/08/2020 15:00 NANCY Law [place] TYPE: Emergency COMPLAINT: - DIFFICULTY BREATHING DIAGNOSES: - Allergy status to other drugs, medicaments and biological substances - Other custodial (current) drug therapy - Unspecified asthma, uncomplicated - Essential (primary) hypertension - Cough 10/30/2020 16:18 NANCY Law [place] TYPE: Emergency COMPLAINT: - INFECTION IN L FOOT, N/V DIAGNOSES: - Ingrowing nail - Essential (primary) hypertension - Other custodial (current) drug therapy - Allergy status to other drugs, medicaments and biological substances 10/28/2020 01:09 NANCY Law [place] TYPE: Emergency COMPLAINT: - ALLERGIC REACTION DIAGNOSES: - Other custodial (current) drug therapy - Allergy status to [...] Cellulitis of right upper limb - Other custodial (current) drug therapy - Essential (primary) hypertension - Allergy status to other drugs, medicaments and biological substances 06/01/2020 07:12 NANCY Law [place] TYPE: Emergency COMPLAINT: - POSSIBLE MEDICATION REACTION DIAGNOSES: - Headache, unspecified - Other custodial (current) drug therapy - Allergy status to [...] hypertension - Bipolar disorder, unspecified - Other custodial (current) drug therapy 01/06/2020 23:08 NANCY Law [place] TYPE: Emergency COMPLAINT: - DIZZINESS/WEAKNESS DIAGNOSES: - Other exterminator termite (current) drug therapy - Nausea with vomiting, unspecified - Bipolar disorder, unspecified - Dizziness and giddiness - Schizophrenia, unspecified - Allergy status to other drugs, medicaments and biological substances - Other visual disturbances - Essential (primary) hypertension - Diarrhea, unspecified INPATIENT VISIT TRACKING (12 MO.) No inpatient visits to display in this time frame [id number]
[2020-11-19] MEDS ORDERED: SULFAMETHOXAZO1 EAC1 PO (20:30)
[2020-11-19] MEDS ORDERED: BUPRENORPHINE-1 EACH SL (20:31)
== END 2020-11-19 21:27 | disposition home or self-care (01) ==
LOC: ED 19:59
DX: R20.2 Paresthesia of skin (principal); I10 Essential (primary) hypertension; Z88.8 Allergy status to other drugs, medicaments and biological substances; Z79.899 Other long term (current) drug therapy
CPT/HCPCS: 99283

== ENCOUNTER 2020-12-22 14:32 | Emergency (ER) | payer MEDICARE, OTHER ==
[~2020-12-22] VITALS: Ht 185.4 cm; Wt 86.2 kg
[~2020-12-22 14:32] MED LIST changes: +BUPRENORPHINE-1 EACH SL; +SULFAMETHOXAZO1 EAC1 PO
--- OUTSIDE RECORDS SUMMARY | 2020-12-22 15:20 | XMS ---
PreManage Notification: RADHA GOOD Security Mold Cleaning And Storage Supervisor Events 1 event(s) in the past 18 months Most recent security events: Elopement at [facility] 09/06/2020 17:41 - Other Details: PATIENT LWBS. CRITERIA MET - 6 ED Visits in 6 Months - Group Notification - [facility] - Has Care Guidelines CARE PROVIDERS Savage Barragan [facility] 04/15/2018-Current PHONE: [phone] Care Guidelines exist for the following facilities: [facility] ( 08/01/2020 ) Care History Medical/Surgical 11/21/2020 [facility] - CHW CALLED PATIENT- DID NOT ANSWER PHONE-UNABLE TO LEAVE A MESSAGE-VOICEMAIL NOT SET UP. 11/16/2020 [facility] - CHW RECEIVED CASE MGMNT [...] CASE MANAGEMENT DEPT TO SEE PATIENT. 11/09/2020 [facility] - CHW HAS MADE MULTIPLE ATTEMPTS TO CONTACT PATIENT- DOES NOT ANSWER HIS PHONE AND OR RESPOND TO MESSAGES. [place] VISIT COUNT (12 MO.) [facility] T[facility] NOTE: Visits indicate total known visits. ED/UCC VISIT TRACKING (12 MO.) [facility] COMPLAINT: - SORES ON ARMS 11/19/2020 20:00 NANCY Law [place] TYPE: Emergency COMPLAINT: - HAND NUMBNESS DIAGNOSES: - Other usp (current) drug therapy - Allergy status to other drugs, medicaments and biological substances - Essential (primary) hypertension - Paresthesia of skin 11/14/2020 14:17 NANCY Law [place] TYPE: Emergency COMPLAINT: - RT LEG SKIN ISSUE DIAGNOSES: - Other usp (current) drug therapy - Allergy status to other drugs, medicaments and biological substances - Essential (primary) hypertension - Cellulitis of face 11/08/2020 15:00 NANCY Law [place] TYPE: Emergency COMPLAINT: - DIFFICULTY BREATHING DIAGNOSES: - Allergy status to other drugs, medicaments and biological substances - Other usp (current) drug therapy - Unspecified asthma, uncomplicated - Essential (primary) hypertension - Cough 10/30/2020 16:18 NANCY Law [place] TYPE: Emergency COMPLAINT: - INFECTION IN L FOOT, N/V DIAGNOSES: - Ingrowing nail - Essential (primary) hypertension - Other termite control representative (current) drug therapy - Allergy status to other drugs, medicaments and biological substances 10/28/2020 01:09 NANCY Law [place] TYPE: Emergency COMPLAINT: - ALLERGIC REACTION DIAGNOSES: - Other usp (current) drug therapy - Allergy status to [...] Cellulitis of right upper limb - Other usp (current) drug therapy - Essential (primary) hypertension - Allergy status to other drugs, medicaments and biological substances 06/01/2020 07:12 NANCY [place] Cheo Guerra [place] TYPE: Emergency COMPLAINT: - POSSIBLE MEDICATION REACTION DIAGNOSES: - Headache, unspecified - Other usp (current) drug therapy - Allergy status to [...] hypertension - Bipolar disorder, unspecified - Other usp (current) drug therapy 01/06/2020 23:08 NANCY Law [place] TYPE: Emergency COMPLAINT: - DIZZINESS/WEAKNESS DIAGNOSES: - Other termite control representative (current) drug therapy - Nausea with vomiting, unspecified - Bipolar disorder, unspecified - Dizziness and giddiness - Schizophrenia, unspecified - Allergy status to other drugs, medicaments and biological substances - Other visual disturbances - Essential (primary) hypertension - Diarrhea, unspecified INPATIENT VISIT TRACKING (12 MO.) No inpatient visits to display in this time frame [id number]
[2020-12-22] MEDS ORDERED: CARBIDOPA-LEVO1 EAC1 PO (15:26)
[2020-12-22] MEDS ORDERED: LITHIUM CARBON300 MG PO (15:26)
[2020-12-22] MEDS ORDERED: HYDROXYZINE HCL25 MG PO (15:27)
[2020-12-22] MEDS ORDERED: SILDENAFIL CIT100 MG PO (15:27)
[2020-12-22] MEDS ORDERED: BACTRIM DS TAB1 EACH PO (17:04)
== END 2020-12-22 17:15 | disposition home or self-care (01) ==
LOC: ED 14:32
DX: A49.02 Methicillin resistant Staphylococcus aureus infection, unspecified site (principal); I10 Essential (primary) hypertension; Z88.8 Allergy status to other drugs, medicaments and biological substances; Z79.899 Other long term (current) drug therapy
CPT/HCPCS: 99282

== ENCOUNTER 2021-02-17 20:26 | Emergency (ER) | payer MEDICARE, OTHER ==
[~2021-02-17] VITALS: Ht 185.4 cm; Wt 90.7 kg
[~2021-02-17 20:26] MED LIST changes: +CARBIDOPA-LEVO1 EAC1 PO; +HYDROXYZINE HCL25 MG PO; +SILDENAFIL CIT100 MG PO
--- OUTSIDE RECORDS SUMMARY | 2021-02-17 20:28 | XMS ---
PreManage Notification: RADHA GOOD Security Engraver Machine Events 1 event(s) in the past 18 months Most recent security events: Elopement at [facility] 09/06/2020 17:41 - Other Details: PATIENT LWBS. CRITERIA MET - 6 ED Visits in 6 Months - Group Notification - PDMP - [facility] - 2 Visits in 30 Days - [facility] - Has Care Guidelines CARE PROVIDERS Savage Barragan [facility] 04/15/2018-Current PHONE: [phone] Care Guidelines exist for the following facilities: [facility] ( 08/01/2020 ) Care History Behavioral 12/23/2020 [facility] Discussed: Need to reestablish with psychiatric services; contact psychiatric nurse practitioner Ida and inquire if your Medicare is accepted. Patient reports that his Latuda, lithium, Depakote, BuSpar, and trazodone are currently being maintained by [facility] until patient establishes care elsewhere.\T\nbsp;\T\nbsp; Medical/Surgical 12/23/2020 [facility] PLEASE CONTACT WENDY - IF PATIENT IS WILLING TO TALK ABOUT RESOURCES AND OR HELP IN REGARDS TO SUBSTANCE USE. \T\nbsp;\T\nbsp;\T\nbsp;\T\nbsp;\T\nbsp;\T\ nbsp;\T\nbsp;\T\nbsp;\T\nbsp;\T\nbsp;\T\nbsp;\T\nbsp;\T\nbsp;\T\nbsp;\T\nbsp;\ T\nbsp;\T\nbsp;\T\nbsp;\T\nbsp;\T\nbsp;\T\nbsp;\T\nbsp;\T\nbsp;\T\nbsp;\T\nbsp; \T\nbsp;\T\nbsp;\T\nbsp;\T\nbsp;\T\nbsp;\T\nbsp;\T\nbsp;\T\nbsp;\T\nbsp;\T\ nbsp;\T\nbsp;\T\nbsp; WENDY CONTACT NUMBER: [phone] 11/21/2020 [facility] - CHW CALLED PATIENT- DID NOT ANSWER PHONE-UNABLE TO LEAVE A MESSAGE-VOICEMAIL NOT SET UP. 11/16/2020 [facility] - CHW RECEIVED CASE MGMNT CONSULT TO HELP PATIENT NAVIGATE INSURANCE AND HELP WITH PRIMARY CARE SET UP. - CHW CALLED PATIENT- NO ANSWER VOICEMAIL BOX NOT SET UP. - NO PCP LETTER SENT ALONG WITH LIST OF PROVIDERS IN THE AREA. - IF PATIENT IS SEEN IN THE ED DURING THE WEEK - PLEASE CONTACT CASE MANAGEMENT DEPT TO SEE PATIENT. E.D. VISIT COUNT (12 MO.) 2 [facility] 11 [facility]. TOTAL 13 NOTE: Visits indicate total known visits. ED/UCC VISIT TRACKING (12 MO.) 02/17/2021 20:27 NANCY Law [place] TYPE: Emergency COMPLAINT: - RT ANKLE SKIN PROBLEM 01/29/2021 23:57 [facility] [place] TYPE: Emergency COMPLAINT: - infection DIAGNOSES: - infection 01/28/2021 14:25 [facility] [place] TYPE: Emergency DIAGNOSES: - Cellulitis of right upper limb - INFECTION IN HANDS AND ANKLE - Cellulitis of left upper limb - Cellulitis of left lower limb 12/22/2020 14:[address] [facility] [address] [facility] [place] TYPE: Emergency COMPLAINT: - SORES ON ARMS DIAGNOSES: - Methicillin resistant Staphylococcus aureus infection, unspecified site - Other termite exterminator (current) drug therapy - Allergy status to other drugs, medicaments and biological substances - Essential (primary) hypertension 11/19/2020 20:00 NANCY Law [place] TYPE: Emergency COMPLAINT: - HAND NUMBNESS DIAGNOSES: - Other fdc (current) drug therapy - Allergy status to other drugs, medicaments and biological substances - Essential (primary) hypertension - Paresthesia of skin 11/14/2020 14:[address] [facility] [address] [facility] [place] TYPE: Emergency COMPLAINT: - RT LEG SKIN ISSUE DIAGNOSES: - Other fdc (current) drug therapy - Allergy status to other drugs, medicaments and biological substances - Essential (primary) hypertension - Cellulitis of face 11/08/2020 15:00 NANCY Law [place] TYPE: Emergency COMPLAINT: - DIFFICULTY BREATHING DIAGNOSES: - Allergy status to other drugs, medicaments and biological substances - Other fdc (current) drug therapy - Unspecified asthma, uncomplicated - Essential (primary) hypertension - Cough 10/30/2020 16:18 NANCY Law [place] TYPE: Emergency COMPLAINT: - INFECTION IN L FOOT, N/V DIAGNOSES: - Ingrowing nail - Essential (primary) hypertension - Other termite exterminator (current) drug therapy - Allergy status to other drugs, medicaments and biological substances 10/28/2020 01:09 NANCY Law [place] TYPE: Emergency COMPLAINT: - ALLERGIC REACTION DIAGNOSES: - Other termite exterminator (current) drug therapy - Allergy status to other drugs, medicaments and biological substances - Personal history of nicotine dependence - Other adverse food reactions, not elsewhere classified, initial encounter - Essential (primary) hypertension 09/06/2020 17:41 NANCY Law [place] TYPE: Emergency COMPLAINT: - ANXIETY 07/10/2020 18:41 NANCY Vásquez [place] TYPE: Emergency COMPLAINT: - HAND SWELLING DIAGNOSES: - Personal history of nicotine dependence - Cellulitis of right upper limb - Other termite exterminator (current) drug therapy - Essential (primary) hypertension - Allergy status to other drugs, medicaments and biological substances 06/01/2020 07:12 [facility] [place] TYPE: Emergency COMPLAINT: - POSSIBLE MEDICATION REACTION DIAGNOSES: - Headache, unspecified - Other fdc (current) drug therapy - Allergy status to [...] hypertension - Bipolar disorder, unspecified - Other termite exterminator (current) drug therapy INPATIENT VISIT TRACKING (12 MO.) 01/30/2021 23:57 [facility] [place] TYPE: Medical Surgical DIAGNOSES: - infection - Cellulitis of unspecified part of limb - Cellulitis of left lower limb [id number]
== END 2021-02-17 21:40 | disposition home or self-care (01) ==
LOC: ED 20:26
DX: M79.89 Other specified soft tissue disorders (principal); Z23 Encounter for immunization; I10 Essential (primary) hypertension; Z87.891 Personal history of nicotine dependence; Z88.8 Allergy status to other drugs, medicaments and biological substances; Z79.899 Other long term (current) drug therapy
CPT/HCPCS: 90471; 90715; 99283-25

== ENCOUNTER 2021-02-22 18:25 | Emergency (ER) | payer MEDICARE, OTHER ==
[~2021-02-22] VITALS: Ht 185.4 cm; Wt 90.7 kg
--- OUTSIDE RECORDS SUMMARY | 2021-02-22 18:28 | XMS ---
PreManage Notification: RADHA GOOD Security Curator Of Photography And Prints Events 1 event(s) in the past 18 months Most recent security events: Elopement at [facility] 09/06/2020 17:41 - Other Details: PATIENT LWBS. CRITERIA MET - Group Notification - 6 ED Visits in 6 Months - PDMP - [facility] - 2 Visits in 30 Days - [facility] - Has Care Guidelines CARE PROVIDERS Savage Barragan [facility] 04/15/2018-Current PHONE: [phone] Care Guidelines exist for the following facilities: [facility] ( 08/01/2020 ) Care History Behavioral 12/23/2020 [facility] Discussed: Need to reestablish with psychiatric services; contact psychiatric nurse practitioner Ida and inquire if your Medicare is accepted. Patient reports that his Latuda, lithium, Depakote, BuSpar, and trazodone are currently being maintained by [facility] until patient establishes care elsewhere.\T\nbsp;\T\nbsp; Medical/Surgical 12/23/2020 [facility] PLEASE CONTACT WENDY - IF PATIENT IS WILLING TO TALK ABOUT RESOURCES AND OR HELP IN REGARDS TO SUBSTANCE USE. \T\nbsp;\T\nbsp;\T\nbsp;\T\nbsp;\T\nbsp;\T\ nbsp;\T\nbsp;\T\nbsp;\T\nbsp;\T\nbsp;\T\nbsp;\T\nbsp;\T\nbsp;\T\nbsp;\T\nbsp;\ T\nbsp;\T\nbsp;\T\nbsp;\T\nbsp;\T\nbsp;\T\nbsp;\T\nbsp;\T\nbsp;\T\nbsp;\T\nbsp; \T\nbsp;\T\nbsp;\T\nbsp;\T\nbsp;\T\nbsp;\T\nbsp;\T\nbsp;\T\nbsp;\T\nbsp;\T\ nbsp;\T\nbsp;\T\nbsp; WENDY CONTACT NUMBER: [phone] 11/21/2020 [facility] - CHW CALLED PATIENT- DID NOT ANSWER PHONE-UNABLE TO LEAVE A MESSAGE-VOICEMAIL NOT SET UP. 11/16/2020 [facility] - CHW RECEIVED CASE MGMNT CONSULT TO [...] PATIENT. E.D. VISIT COUNT (12 MO.) [address] TOTAL 14 NOTE: Visits indicate total known visits. ED/UCC VISIT TRACKING (12 MO.) 02/22/2021 18:26 [facility] [place] TYPE: Emergency COMPLAINT: - SKIN PROBLEM 02/17/2021 20:27 [facility] [place] TYPE: Emergency COMPLAINT: - RT ANKLE SKIN PROBLEM DIAGNOSES: - Essential (primary) hypertension - Other specified soft tissue disorders - Other intermodal customer service (current) drug therapy - Personal history of nicotine dependence - Allergy status to other drugs, medicaments and biological substances - Encounter for immunization 01/29/2021 23:57 [facility] [place] TYPE: Emergency COMPLAINT: - infection DIAGNOSES: - infection 01/28/2021 14:25 [facility] [place] TYPE: Emergency DIAGNOSES: - Cellulitis of right upper limb - INFECTION IN HANDS AND ANKLE - Cellulitis of left upper limb - Cellulitis of left lower limb 12/22/2020 14:32 [facility] [place] TYPE: Emergency COMPLAINT: - SORES ON ARMS DIAGNOSES: - Methicillin resistant Staphylococcus aureus infection, unspecified site - Other intermodal customer service (current) drug therapy - Allergy status to other drugs, medicaments and biological substances - Essential (primary) hypertension 11/19/2020 20:00 [facility] [place] TYPE: Emergency COMPLAINT: - HAND NUMBNESS DIAGNOSES: - Other intermodal customer service (current) drug therapy - Allergy status to other drugs, medicaments and biological substances - Essential (primary) hypertension - Paresthesia of skin 11/14/2020 14:17 [facility] [place] TYPE: Emergency COMPLAINT: - RT LEG SKIN ISSUE DIAGNOSES: - Other intermodal customer service (current) drug therapy - Allergy status to other drugs, medicaments and biological substances - Essential (primary) hypertension - Cellulitis of face 11/08/2020 15:00 [facility] [place] TYPE: Emergency COMPLAINT: - DIFFICULTY BREATHING DIAGNOSES: - Allergy status to other drugs, medicaments and biological substances - Other intermodal customer service (current) drug therapy - Unspecified asthma, uncomplicated - Essential (primary) hypertension - Cough 10/30/2020 16:[address] [facility] [place] TYPE: Emergency COMPLAINT: - INFECTION IN L FOOT, N/V DIAGNOSES: - Ingrowing nail - Essential (primary) hypertension - Other intermodal customer service (current) drug therapy - Allergy status to other drugs, medicaments and biological substances 10/28/2020 01:09 [facility] [place] TYPE: Emergency COMPLAINT: - ALLERGIC REACTION DIAGNOSES: - Other intermodal customer service (current) drug therapy - Allergy status to [...] Cellulitis of right upper limb - Other intermodal customer service (current) drug therapy - Essential (primary) hypertension - Allergy status to other drugs, medicaments and biological substances 06/01/2020 07:12 [facility] [place] TYPE: Emergency COMPLAINT: - POSSIBLE MEDICATION REACTION DIAGNOSES: - Headache, unspecified - Other intermodal customer service (current) drug therapy - Allergy status to [...] hypertension - Bipolar disorder, unspecified - Other intermodal customer service (current) drug therapy INPATIENT VISIT TRACKING (12 MO.) 01/30/2021 23:57 [facility] [place] TYPE: Medical Surgical DIAGNOSES: - infection - Cellulitis of unspecified part of limb - Cellulitis of left lower limb [email or web address]
[2021-02-22] MEDS ORDERED: DOXYCYCLINE HY100 MG PO (18:44)
[2021-02-22] MEDS ORDERED: VISTARIL25 MG PO (18:44)
== END 2021-02-22 18:53 | disposition home or self-care (01) ==
LOC: ED 18:25
PROC: 0H9FXZZ Drainage of Right Hand Skin, External Approach (ICD-10-PCS; principal; 2021-02-22)
DX: L02.511 Cutaneous abscess of right hand (principal); B95.62 Methicillin resistant Staphylococcus aureus infection as the cause of diseases classified elsewhere; I10 Essential (primary) hypertension; Z87.891 Personal history of nicotine dependence; Z88.8 Allergy status to other drugs, medicaments and biological substances; Z79.84 Long term (current) use of oral hypoglycemic drugs; Z79.899 Other long term (current) drug therapy
CPT/HCPCS: 10060; 99282-25

== ENCOUNTER 2021-03-01 06:38 | Emergency (ER) | payer MEDICARE, OTHER ==
[~2021-03-01] VITALS: Ht 185.4 cm; Wt 90.7 kg
[~2021-03-01 06:38] MED LIST changes: +VISTARIL25 MG PO
--- OUTSIDE RECORDS SUMMARY | 2021-03-01 06:42 | XMS ---
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 CRITERIA MET - Group Notification - [facility] - 2 Visits in 30 Days - PDMP - [facility] - Has Care Guidelines - 6 ED Visits in 6 Months CARE PROVIDERS BRENNA REYES Nurse Practitioner: 02/23/2021-Current PHONE: [phone] Savage Barragan [facility] 04/15/2018-Current PHONE: [phone] Care Guidelines exist for the following facilities: [facility] [place] ( 08/01/2020 ) Care History Medical/Surgical 12/23/2020 [facility] PLEASE CONTACT WENDY - IF PATIENT IS WILLING TO TALK ABOUT RESOURCES AND OR HELP IN REGARDS TO SUBSTANCE USE. \T\nbsp;\T\nbsp;\T\nbsp;\T\nbsp;\T\nbsp;\T\ nbsp;\T\nbsp;\T\nbsp;\T\nbsp;\T\nbsp;\T\nbsp;\T\nbsp;\T\nbsp;\T\nbsp;\T\nbsp;\ T\nbsp;\T\nbsp;\T\nbsp;\T\nbsp;\T\nbsp;\T\nbsp;\T\nbsp;\T\nbsp;\T\nbsp;\T\nbsp; \T\nbsp;\T\nbsp;\T\nbsp;\T\nbsp;\T\nbsp;\T\nbsp;\T\nbsp;\T\nbsp;\T\nbsp;\T\ nbsp;\T\nbsp;\T\nbsp; WENDY CONTACT NUMBER: [phone] 11/21/2020 [facility] - CHW CALLED PATIENT- DID NOT ANSWER PHONE-UNABLE TO LEAVE A MESSAGE-VOICEMAIL NOT SET UP. 11/16/2020 [facility] - CHW RECEIVED CASE MGMNT CONSULT TO HELP PATIENT NAVIGATE INSURANCE AND HELP WITH PRIMARY CARE SET UP. - CHW CALLED PATIENT- NO ANSWER VOICEMAIL BOX NOT SET UP. - NO PCP LETTER SENT ALONG WITH LIST OF PROVIDERS IN THE AREA. - IF PATIENT IS SEEN IN THE ED DURING THE WEEK - PLEASE CONTACT CASE MANAGEMENT DEPT TO SEE PATIENT. Behavioral 12/23/2020 [facility] Discussed: Need to reestablish with psychiatric services; contact psychiatric nurse practitioner Eslinger and inquire if your Medicare is accepted. Patient reports that his Latuda, lithium, Depakote, BuSpar, and trazodone are currently being maintained by [facility] until patient establishes care elsewhere.\T\nbsp;\T\nbsp; E.D. VISIT COUNT (12 MO.) 2 [facility] 13 [facility] V[facility] TOTAL 15 NOTE: Visits indicate total known visits. ED/UCC VISIT TRACKING (12 MO.) 03/01/2021 06:40 [facility] [place] TYPE: Emergency COMPLAINT: - SWELLING, PUS, PAIN, NOT FEELING WELL IN GENERAL 02/22/2021 18:26 [facility] [place] TYPE: Emergency COMPLAINT: - SKIN PROBLEM DIAGNOSES: - [place] [facility] [place]current[place] drug therapy - Methicillin resistant Staphylococcus aureus infection, unspecified site - Allergy status to other drugs, medicaments and biological substances - Methicillin resistant Staphylococcus aureus infection as the cause of diseases classified elsewhere - Personal history of nicotine dependence - half-way (current) use of oral hypoglycemic drugs - Cutaneous abscess of right hand - Essential (primary) hypertension - Other specified local infections of the skin and subcutaneous tissue 02/17/2021 20:27 [facility] [place] TYPE: Emergency COMPLAINT: - RT ANKLE SKIN PROBLEM DIAGNOSES: - Essential (primary) hypertension - Other specified soft tissue disorders - Other [place] [facility] [place] (current[place] drug therapy - Personal history of nicotine dependence - Allergy status to other drugs, medicaments and biological substances - Encounter for immunization 01/29/2021 23:57 [facility] [place] TYPE: Emergency COMPLAINT: - infection DIAGNOSES: - infection 01/28/2021 14:25 [facility] [place] TYPE: Emergency DIAGNOSES: - Cellulitis of right upper limb - INFECTION IN HANDS AND ANKLE - Cellulitis of left upper limb - Cellulitis of left lower limb 12/22/2020 14:32 [facility] [place] TYPE: Emergency COMPLAINT: - SORES ON ARMS DIAGNOSES: - Methicillin resistant Staphylococcus aureus infection, unspecified site - Other [place] [facility] [place]current[facility] drug therapy - Allergy status to other drugs, medicaments and biological substances - Essential (primary) hypertension 11/19/2020 20:00 [facility] [place] TYPE: Emergency COMPLAINT: - HAND NUMBNESS DIAGNOSES: - Other order schedule clerk (current) 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 [place] TYPE: Emergency COMPLAINT: - RT LEG SKIN ISSUE DIAGNOSES: - Other [place] [facility] [place] (current[place] drug therapy - Allergy status to other drugs, medicaments and biological substances - Essential (primary) hypertension - Cellulitis of face 11/08/2020 15:00 [facility] [place] TYPE: Emergency COMPLAINT: - DIFFICULTY BREATHING DIAGNOSES: - Allergy status to other drugs, medicaments and biological substances - Other order schedule clerk (current) drug therapy - Unspecified asthma, uncomplicated - Essential (primary) hypertension - Cough 10/30/2020 16:18 [facility] [place] TYPE: Emergency COMPLAINT: - INFECTION IN L FOOT, N/V DIAGNOSES: - Ingrowing nail - Essential (primary) hypertension - Other order schedule clerk (current) drug therapy - Allergy status to other drugs, medicaments and biological substances 10/28/2020 01:09 [facility] [place] TYPE: Emergency COMPLAINT: - ALLERGIC REACTION DIAGNOSES: - Other order schedule clerk (current) drug therapy - Allergy status to [...] Cellulitis of right upper limb - Other order schedule clerk (current) drug therapy - Essential (primary) hypertension - Allergy status to other drugs, medicaments and biological substances 06/01/2020 07:12 [facility] [place] TYPE: Emergency COMPLAINT: - POSSIBLE MEDICATION REACTION DIAGNOSES: - Headache, unspecified - [place] [facility] [place]current[place] drug therapy - Allergy status to [...] hypertension - Bipolar disorder, unspecified - Other order schedule clerk (current) drug therapy INPATIENT VISIT TRACKING (12 MO.) 01/30/2021 23:57 [facility] [place] TYPE: Medical Surgical DIAGNOSES: - infection - Cellulitis of unspecified part of limb - Cellulitis of left lower limb [email or web address]
[2021-03-01] MEDS ORDERED: OLANZAPINE10 MG PO (07:08)
[2021-03-01] MEDS ORDERED: DIVALPROEX SOD500 M1 PO (07:08)
[2021-03-01] MEDS ORDERED: DOXYCYCLINE HY100 MG PO (07:13)
[2021-03-01] MEDS ORDERED: CENTANY30 GM TOP (07:13)
== END 2021-03-01 07:22 | disposition home or self-care (01) ==
LOC: ED 06:38
DX: L25.8 Unspecified contact dermatitis due to other agents (principal); B95.62 Methicillin resistant Staphylococcus aureus infection as the cause of diseases classified elsewhere; I10 Essential (primary) hypertension; Z87.891 Personal history of nicotine dependence; Z88.8 Allergy status to other drugs, medicaments and biological substances; Z79.899 Other long term (current) drug therapy
CPT/HCPCS: 99283

== ENCOUNTER 2021-03-05 00:23 | Emergency (ER) | payer MEDICARE, OTHER ==
[~2021-03-05] VITALS: Ht 185.4 cm; Wt 90.7 kg
[~2021-03-05 00:23] MED LIST changes: +CENTANY30 GM TOP; +DIVALPROEX SOD500 M1 PO
--- OUTSIDE RECORDS SUMMARY | 2021-03-05 00:26 | XMS ---
PreManage Notification: RADHA GOOD Security [employer] Events 1 event(s) in the past 18 months Most recent security events: Elopement at [facility] 09/06/2020 17:41 - Other Details: PATIENT LWBS. CRITERIA MET - PDMP - Group Notification - 6 ED Visits in 6 Months - [facility] - 2 Visits in 30 Days - [facility] - Has Care Guidelines CARE PROVIDERS BRENNA REYES Nurse Practitioner: 02/23/2021-Current PHONE: [phone] Savage Barragan [facility] 04/15/2018-Current PHONE: [phone] Care Guidelines exist for the following facilities: [facility] ( 08/01/2020 ) Care History Behavioral 12/23/2020 [facility] Discussed: Need to reestablish with psychiatric services; contact psychiatric nurse practitioner Ida and inquire if your Medicare is accepted. Patient reports that his Latuda, lithium, Depakote, BuSpar, and trazodone are currently being maintained by [facility] until patient establishes care elsewhere.\T\nbsp;\T\nbsp; Medical/Surgical 12/23/2020 [facility] PLEASE CONTACT WENDY - IF PATIENT IS WILLING TO TALK ABOUT RESOURCES AND OR HELP IN REGARDS TO SUBSTANCE USE. \T\nbsp;\T\nbsp;\T\nbsp;\T\nbsp;\T\nbsp;\T\ nbsp;\T\nbsp;\T\nbsp;\T\nbsp;\T\nbsp;\T\nbsp;\T\nbsp;\T\nbsp;\T\nbsp;\T\nbsp;\ T\nbsp;\T\nbsp;\T\nbsp;\T\nbsp;\T\nbsp;\T\nbsp;\T\nbsp;\T\nbsp;\T\nbsp;\T\nbsp; \T\nbsp;\T\nbsp;\T\nbsp;\T\nbsp;\T\nbsp;\T\nbsp;\T\nbsp;\T\nbsp;\T\nbsp;\T\ nbsp;\T\nbsp;\T\nbsp; WENDY CONTACT NUMBER: [phone] 11/21/2020 [facility] - CHW CALLED PATIENT- DID NOT ANSWER PHONE-UNABLE TO LEAVE A MESSAGE-VOICEMAIL NOT SET UP. 11/16/2020 [facility] - CHW RECEIVED CASE MGMNT CONSULT [...] PATIENT. E.D. VISIT COUNT (12 MO.) 2 [facility] 14 NANCY Vásquez TOTAL 16 NOTE: Visits indicate total known visits. ED/UCC VISIT TRACKING (12 MO.) 03/05/2021 00:24 [facility] [place] TYPE: Emergency COMPLAINT: - RT ARM LACERATION 03/01/2021 06:40 [facility] [place] TYPE: Emergency COMPLAINT: - SWELLING, PUS, PAIN, NOT FEELING WELL IN GENERAL 02/22/2021 18:[address] [facility] [place] TYPE: Emergency COMPLAINT: - SKIN PROBLEM DIAGNOSES: - Other long-term (current) drug therapy - Methicillin resistant Staphylococcus aureus infection, unspecified site - Allergy status to other drugs, medicaments and biological substances - Methicillin resistant Staphylococcus aureus infection as the cause of diseases classified elsewhere - Personal history of nicotine dependence - alf (current) use of oral hypoglycemic drugs - Cutaneous abscess of right hand - Essential (primary) hypertension - Other specified local infections of the skin and subcutaneous tissue 02/17/2021 20:[address] [facility] [place] TYPE: Emergency COMPLAINT: - RT ANKLE SKIN PROBLEM DIAGNOSES: - Essential (primary) hypertension - Other specified soft tissue disorders - Other superintendent terminal (current) drug therapy - Personal history of nicotine dependence - Allergy status to other drugs, medicaments and biological substances - Encounter for immunization 01/29/2021 23:57 [facility] [place] TYPE: Emergency COMPLAINT: - infection DIAGNOSES: - infection 01/28/2021 14:25 [facility] [place] TYPE: Emergency DIAGNOSES: - Cellulitis of right upper limb - INFECTION IN HANDS AND ANKLE - Cellulitis of left upper limb - Cellulitis of left lower limb 12/22/2020 14:32 [facility] [place] TYPE: Emergency COMPLAINT: - SORES ON ARMS DIAGNOSES: - Methicillin resistant Staphylococcus aureus infection, unspecified site - Other long-term (current) drug therapy - Allergy status to other drugs, medicaments and biological substances - Essential (primary) hypertension 11/19/2020 20:00 [facility] [place] TYPE: Emergency COMPLAINT: - HAND NUMBNESS DIAGNOSES: - Other long-term (current) drug therapy - Allergy status to other drugs, medicaments and biological substances - Essential (primary) hypertension - Paresthesia of skin 11/14/2020 14:17 [facility] [place] TYPE: Emergency COMPLAINT: - RT LEG SKIN ISSUE DIAGNOSES: - Other superintendent terminal (current) drug therapy - Allergy status to other drugs, medicaments and biological substances - Essential (primary) hypertension - Cellulitis of face 11/08/2020 15:00 [facility] [place] TYPE: Emergency COMPLAINT: - DIFFICULTY BREATHING DIAGNOSES: - Allergy status to other drugs, medicaments and biological substances - Other superintendent terminal (current) drug therapy - Unspecified asthma, uncomplicated - Essential (primary) hypertension - Cough 10/30/2020 16:18 [facility] [place] TYPE: Emergency COMPLAINT: - INFECTION IN L FOOT, N/V DIAGNOSES: - Ingrowing nail - Essential (primary) hypertension - Other long-term (current) drug therapy - Allergy status to other drugs, medicaments and biological substances 10/28/2020 01:09 [facility] [place] TYPE: Emergency COMPLAINT: - ALLERGIC REACTION DIAGNOSES: - Other long-term (current) drug therapy - Allergy status to [...] Cellulitis of right upper limb - Other superintendent terminal (current) drug therapy - Essential (primary) hypertension - Allergy status to other drugs, medicaments and biological substances 06/01/2020 07:12 [facility] [place] TYPE: Emergency COMPLAINT: - POSSIBLE MEDICATION REACTION DIAGNOSES: - Headache, unspecified - Other long-term (current) drug therapy - Allergy status to [...] hypertension - Bipolar disorder, unspecified - Other superintendent terminal (current) drug therapy INPATIENT VISIT TRACKING (12 MO.) 01/30/2021 23:57 [facility] [place] TYPE: Medical Surgical DIAGNOSES: - infection - Cellulitis of unspecified part of limb - Cellulitis of left lower limb [email or web address]
[2021-03-05] MEDS ORDERED: BACTRIM DS TAB1 EACH PO (01:06)
== END 2021-03-05 01:28 | disposition home or self-care (01) ==
LOC: ED 00:23
DX: L08.89 Other specified local infections of the skin and subcutaneous tissue (principal); I10 Essential (primary) hypertension; Z87.891 Personal history of nicotine dependence; Z88.8 Allergy status to other drugs, medicaments and biological substances; Z79.899 Other long term (current) drug therapy
CPT/HCPCS: 99282

== ENCOUNTER 2021-03-15 01:14 | Emergency (ER) | payer MEDICARE, OTHER ==
[~2021-03-15] VITALS: Ht 185.4 cm; Wt 90.7 kg
--- OUTSIDE RECORDS SUMMARY | 2021-03-15 01:20 | XMS ---
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 CRITERIA MET - Group Notification - [facility] - Has Care Guidelines - 6 ED Visits in 6 Months - [facility] - 2 Visits in 30 Days CARE PROVIDERS BRENNA REYES Nurse Practitioner: 02/23/2021-Current PHONE: [phone] Savage Barragan [facility] 04/15/2018-Current PHONE: [phone] Care Guidelines exist for the following facilities: [facility] [place] ( 08/01/2020 ) Care History Medical/Surgical 12/23/2020 [facility] PLEASE CONTACT WENDY - IF PATIENT IS WILLING TO TALK ABOUT RESOURCES AND OR HELP IN REGARDS TO SUBSTANCE USE. \T\nbsp;\T\nbsp;\T\nbsp;\T\nbsp;\T\nbsp;\T\ nbsp;\T\nbsp;\T\nbsp;\T\nbsp;\T\nbsp;\T\nbsp;\T\nbsp;\T\nbsp;\T\nbsp;\T\nbsp;\ T\nbsp;\T\nbsp;\T\nbsp;\T\nbsp;\T\nbsp;\T\nbsp;\T\nbsp;\T\nbsp;\T\nbsp;\T\nbsp; \T\nbsp;\T\nbsp;\T\nbsp;\T\nbsp;\T\nbsp;\T\nbsp;\T\nbsp;\T\nbsp;\T\nbsp;\T\ nbsp;\T\nbsp;\T\nbsp; WENDY CONTACT NUMBER: [phone] 11/21/2020 [facility] - CHW CALLED PATIENT- DID NOT ANSWER PHONE-UNABLE TO LEAVE A MESSAGE-VOICEMAIL NOT SET UP. 11/16/2020 [facility] - CHW RECEIVED CASE MGMNT CONSULT [...] MANAGEMENT DEPT TO SEE PATIENT. Behavioral 12/23/2020 [facility] Discussed: Need to reestablish with psychiatric services; contact psychiatric nurse practitioner Esdexterer and inquire if your Medicare is accepted. Patient reports that his Latuda, lithium, Depakote, BuSpar, and trazodone are currently being maintained by [facility] until patient establishes care elsewhere.\T\nbsp;\T\nbsp; E.D. VISIT COUNT (12 MO.) 2 [facility] 15 NANCY Vásquez TOTAL 17 NOTE: Visits indicate total known visits. ED/UCC VISIT TRACKING (12 MO.) 03/15/2021 01:14 [facility] [place] TYPE: Emergency COMPLAINT: - EAR AND SKIN PROBLEM 03/05/2021 00:24 [facility] [place] TYPE: Emergency COMPLAINT: - INFECTION DIAGNOSES: - Other exterminator termite (current) drug therapy - Allergy status to other drugs, medicaments and biological substances - Essential (primary) hypertension - Personal history of nicotine dependence - Other specified local infections of the skin and subcutaneous tissue - Local infection of the skin and subcutaneous tissue, unspecified 03/01/2021 06:40 [facility] [place] TYPE: Emergency COMPLAINT: - SWELLING, PUS, PAIN, NOT FEELING WELL IN GENERAL DIAGNOSES: - Methicillin resistant Staphylococcus aureus infection as the cause of diseases classified elsewhere - Allergy status to other drugs, medicaments and biological substances - Unspecified contact dermatitis due to other agents - Other [facility] (current) drug therapy - Essential (primary) hypertension - Personal history of nicotine dependence 02/22/2021 18:26 [facility] [place] TYPE: Emergency COMPLAINT: - SKIN PROBLEM DIAGNOSES: - Other [facility] (current) drug therapy - Methicillin resistant Staphylococcus aureus infection, unspecified site - Allergy status to other drugs, medicaments and biological substances - Methicillin resistant Staphylococcus aureus infection as the cause of diseases classified elsewhere - Personal history of nicotine dependence - termite helper (current) use of oral hypoglycemic drugs - Cutaneous abscess of right hand - Essential (primary) hypertension - Other specified local infections of the skin and subcutaneous tissue 02/17/2021 20:27 [facility] [place] TYPE: Emergency COMPLAINT: - RT ANKLE SKIN PROBLEM DIAGNOSES: - Essential (primary) hypertension - Other specified soft tissue disorders - Other [facility] (current) drug therapy - Personal history of nicotine dependence - Allergy status to other drugs, medicaments and biological substances - Encounter for immunization 01/29/2021 23:[facility] COMPLAINT: - infection DIAGNOSES: - infection [facility]28[facility]2021 [facility] DIAGNOSES: - Cellulitis of right upper limb - INFECTION IN HANDS AND ANKLE - Cellulitis of left upper limb - Cellulitis of left lower limb 12/22/2020 14:32 [facility] [place] TYPE: Emergency COMPLAINT: - SORES ON ARMS DIAGNOSES: - Methicillin resistant Staphylococcus aureus infection, unspecified site - Other exterminator termite (current) drug therapy - Allergy status to other drugs, medicaments and biological substances - Essential (primary) hypertension 11/19/2020 20:00 [facility] [place] TYPE: Emergency COMPLAINT: - HAND NUMBNESS DIAGNOSES: - Other [facility] (current) drug therapy - Allergy status to other drugs, medicaments and biological substances - Essential (primary) hypertension - Paresthesia of skin 11/14/2020 14:17 [facility] [place] TYPE: Emergency COMPLAINT: - RT LEG SKIN ISSUE DIAGNOSES: - Other [facility] (current) drug therapy - Allergy status to other drugs, medicaments and biological substances - Essential (primary) hypertension - Cellulitis of face 11/08/2020 15:00 [facility] [place] TYPE: Emergency COMPLAINT: - DIFFICULTY BREATHING DIAGNOSES: - Allergy status to other drugs, medicaments and biological substances - Other exterminator termite (current) drug therapy - Unspecified asthma, uncomplicated - Essential (primary) hypertension - Cough 10/30/2020 16:18 [facility] [place] TYPE: Emergency COMPLAINT: - INFECTION IN L FOOT, N/V DIAGNOSES: - Ingrowing nail - Essential (primary) hypertension - Other [facility] (current) drug therapy - Allergy status to other drugs, medicaments and biological substances 10/28/2020 01:09 [facility] [place] TYPE: Emergency COMPLAINT: - ALLERGIC REACTION DIAGNOSES: - Other [facility] (current) drug therapy [...] Cellulitis of right upper limb - Other [facility] (current) drug therapy - Essential (primary) hypertension - Allergy status to other drugs, medicaments and biological substances 06/01/2020 07:12 [facility] [place] TYPE: Emergency COMPLAINT: - POSSIBLE MEDICATION REACTION DIAGNOSES: - Headache, unspecified - Other exterminator termite (current) drug therapy [...] unspecified - Other [facility] (current) drug therapy INPATIENT VISIT TRACKING (12 MO.) 01/30/2021 23:57 [facility] [place] TYPE: Medical Surgical DIAGNOSES: - infection - Cellulitis of unspecified part of limb - Cellulitis of left lower limb [email or web address]
[2021-03-15] MEDS ORDERED: CENTANY30 GM TOP (01:59)
[2021-03-15] MEDS ORDERED: BACTRIM DS TAB1 EACH PO (01:59)
== END 2021-03-15 02:43 | disposition home or self-care (01) ==
LOC: ED 01:14
DX: L98.8 Other specified disorders of the skin and subcutaneous tissue (principal); I10 Essential (primary) hypertension; Z87.891 Personal history of nicotine dependence; Z88.8 Allergy status to other drugs, medicaments and biological substances; Z79.899 Other long term (current) drug therapy
CPT/HCPCS: 99283

== ENCOUNTER 2021-03-25 16:09 | Emergency (ER) | payer MEDICARE, OTHER ==
[~2021-03-25] VITALS: Ht 185.4 cm; Wt 92.4 kg
--- OUTSIDE RECORDS SUMMARY | 2021-03-25 16:12 | XMS ---
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 CRITERIA MET - PDMP - Group Notification - [facility] - 2 Visits in 30 Days - [facility] - Has Care Guidelines - 6 ED Visits in 6 Months CARE PROVIDERS BRENNA REYES Nurse Practitioner: 02/23/2021-Current PHONE: [phone] Savage Barragan [facility] 04/15/2018-Current PHONE: [phone] Care Guidelines exist for the following facilities: [facility] ( 08/01/2020 ) Care History Behavioral 12/23/2020 [facility] Discussed: Need to reestablish with psychiatric services; contact psychiatric nurse practitioner Ida and inquire if your Medicare is accepted. Patient reports that his Latuda, lithium, Depakote, BuSpar, and trazodone are currently being maintained by [facility] until patient establishes care elsewhere.\T\nbsp;\T\nbsp; Medical/Surgical 12/23/2020 [facility] PLEASE CONTACT WENDY - IF PATIENT IS WILLING TO TALK ABOUT RESOURCES AND OR HELP IN REGARDS TO SUBSTANCE USE. \T\nbsp;\T\nbsp;\T\nbsp;\T\nbsp;\T\nbsp;\T\ nbsp;\T\nbsp;\T\nbsp;\T\nbsp;\T\nbsp;\T\nbsp;\T\nbsp;\T\nbsp;\T\nbsp;\T\nbsp;\ T\nbsp;\T\nbsp;\T\nbsp;\T\nbsp;\T\nbsp;\T\nbsp;\T\nbsp;\T\nbsp;\T\nbsp;\T\nbsp; \T\nbsp;\T\nbsp;\T\nbsp;\T\nbsp;\T\nbsp;\T\nbsp;\T\nbsp;\T\nbsp;\T\nbsp;\T\ nbsp;\T\nbsp;\T\nbsp; WENDY CONTACT NUMBER: [phone] 11/21/2020 [facility] - CHW CALLED PATIENT- DID NOT ANSWER PHONE-UNABLE TO LEAVE A MESSAGE-VOICEMAIL NOT SET UP. 11/16/2020 [facility] - CHW RECEIVED CASE MGMNT CONSULT [...] SEE PATIENT. E.D. VISIT COUNT (12 MO.) 3 [facility] 16 NANCY Vásquez TOTAL 19 NOTE: Visits indicate total known visits. ED/UCC VISIT TRACKING (12 MO.) 03/25/2021 16:10 [place] [place] TYPE: Emergency COMPLAINT: - NAUSEA 03/17/2021 14:06 [facility] [place] TYPE: Emergency DIAGNOSES: - Other complications following infusion, transfusion and therapeutic injection, initial encounter - RIGHT HAND SWELLING NEEDLE STICK 03/15/2021 01:[address] [facility] [place] TYPE: Emergency COMPLAINT: - EAR AND SKIN PROBLEM DIAGNOSES: - Other specified disorders of the skin and subcutaneous tissue - Personal history of nicotine dependence - Essential (primary) hypertension - Disorder of the skin and subcutaneous tissue, unspecified - Other detention (current) drug therapy - Allergy status to other drugs, medicaments and biological substances 03/05/2021 00:24 [facility] [place] TYPE: Emergency COMPLAINT: - INFECTION DIAGNOSES: - Other detention (current) drug therapy - Allergy status to [...] dermatitis due to other agents - Other detention (current) drug therapy - Essential (primary) hypertension - Personal history of nicotine dependence 02/22/2021 18:26 [facility] [place] TYPE: Emergency COMPLAINT: - SKIN PROBLEM DIAGNOSES: - Other detention (current) drug therapy - Methicillin resistant Staphylococcus aureus infection, unspecified site - Allergy status to other drugs, medicaments and biological substances - Methicillin resistant Staphylococcus aureus infection as the cause of diseases classified elsewhere - Personal history of nicotine dependence - intermediate designer (current) use of oral hypoglycemic drugs - Cutaneous abscess of right hand - Essential (primary) hypertension - Other specified local infections of the skin and subcutaneous tissue 02/17/2021 20:27 [facility] [place] TYPE: Emergency COMPLAINT: - RT ANKLE SKIN PROBLEM DIAGNOSES: - Essential (primary) hypertension - Other specified soft tissue disorders - Other detention (current) drug therapy - Personal history of nicotine dependence - Allergy status to other drugs, medicaments and biological substances - Encounter for immunization 01/29/2021 23:57 [facility] [place] TYPE: [...] Staphylococcus aureus infection, unspecified site - Other detention (current) drug therapy - Allergy status to other drugs, medicaments and biological substances - Essential (primary) hypertension 11/19/2020 20:00 [facility] [place] TYPE: Emergency COMPLAINT: - HAND NUMBNESS DIAGNOSES: - Other tank terminal gauger (current) drug therapy - Allergy status to other drugs, medicaments and biological substances - Essential (primary) hypertension - Paresthesia of skin 11/14/2020 14:[address] [facility] [place] TYPE: Emergency COMPLAINT: - RT LEG SKIN ISSUE DIAGNOSES: - Other detention (current) drug therapy - Allergy status to other drugs, medicaments and biological substances - Essential (primary) hypertension - Cellulitis of face 11/08/2020 15:00 [facility] [place] TYPE: Emergency COMPLAINT: - DIFFICULTY BREATHING DIAGNOSES: - Allergy status to other drugs, medicaments and biological substances - Other detention (current) drug therapy - Unspecified asthma, uncomplicated - Essential (primary) hypertension - Cough 10/30/2020 16:18 [facility] [place] TYPE: Emergency COMPLAINT: - INFECTION IN L FOOT, N/V DIAGNOSES: - Ingrowing nail - Essential (primary) hypertension - Other detention (current) drug therapy - Allergy status to other drugs, medicaments and biological substances 10/28/2020 01:09 [place] [facility] [place] TYPE: Emergency COMPLAINT: - ALLERGIC REACTION DIAGNOSES: - Other detention (current) drug therapy - Allergy status to other drugs, medicaments and biological substances - Personal history of nicotine dependence - Other adverse food reactions, not elsewhere classified, initial encounter - Essential (primary) hypertension 09/06/2020 17:41 [facility] [place] TYPE: Emergency COMPLAINT: - ANXIETY 07/10/2020 18:41 [facility] [place] TYPE: Emergency COMPLAINT: - HAND SWELLING DIAGNOSES: - Personal history of nicotine dependence - Cellulitis of right upper limb - Other detention (current) drug therapy - Essential (primary) hypertension - Allergy status to other drugs, medicaments and biological substances 06/01/2020 07:12 [facility] [place] TYPE: Emergency COMPLAINT: - POSSIBLE MEDICATION REACTION DIAGNOSES: - Headache, unspecified - Other tank terminal gauger (current) drug therapy - Allergy status to [...] hypertension - Bipolar disorder, unspecified - Other detention (current) drug therapy INPATIENT VISIT TRACKING (12 MO.) 01/30/2021 23:57 [facility] [place] TYPE: Medical Surgical DIAGNOSES: - infection - Cellulitis of unspecified part of limb - Cellulitis of left lower limb [email or web address]
[2021-03-25] MEDS ORDERED: TRIAMCINOLONE A15 G1 TOP (16:25)
[2021-03-25] MEDS ORDERED: CIPROFLOXACIN500 MG PO (16:25)
[2021-03-25] MEDS ORDERED: ZYPREXA20 MG PO (17:05)
== END 2021-03-25 17:11 | disposition home or self-care (01) ==
LOC: ED 16:09
DX: F41.9 Anxiety disorder, unspecified (principal); F20.9 Schizophrenia, unspecified; I10 Essential (primary) hypertension; L81.8 Other specified disorders of pigmentation; Z87.891 Personal history of nicotine dependence; Z88.8 Allergy status to other drugs, medicaments and biological substances; Z79.899 Other long term (current) drug therapy
CPT/HCPCS: 99283

== ENCOUNTER 2021-03-26 23:58 | Emergency (ER) | payer MEDICARE, OTHER ==
[~2021-03-26] VITALS: Ht 185.4 cm; Wt 98.1 kg
[~2021-03-26 23:58] MED LIST changes: +CIPROFLOXACIN500 MG PO; +TRIAMCINOLONE A15 G1 TOP
--- OUTSIDE RECORDS SUMMARY | 2021-03-27 | XMS ---
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 09/06/2020 17:41 - Other Details: PATIENT LWBS. CRITERIA MET - 6 ED Visits in 6 Months - [facility] - Has Care Guidelines - Group Notification - PDMP - [facility] - 2 Visits in 30 Days CARE PROVIDERS BRENNA REYES Nurse Practitioner: 02/23/2021-Current PHONE: [phone] Savage Barragan [facility] 04/15/2018-Current PHONE: [phone] Care Guidelines exist for the following facilities: [facility] ( 08/01/2020 ) Care History Behavioral 12/23/2020 [facility] Discussed: Need to reestablish with psychiatric services; contact psychiatric nurse practitioner Ida and inquire if your Medicare is accepted. Patient reports that his Latuda, lithium, Depakote, BuSpar, and trazodone are currently being maintained by [facility] until patient establishes care elsewhere.\T\nbsp;\T\nbsp; Medical/Surgical 12/23/2020 [facility] PLEASE CONTACT WENDY - IF PATIENT IS WILLING TO TALK ABOUT RESOURCES AND OR HELP IN REGARDS TO SUBSTANCE USE. \T\nbsp;\T\nbsp;\T\nbsp;\T\nbsp;\T\nbsp;\T\ nbsp;\T\nbsp;\T\nbsp;\T\nbsp;\T\nbsp;\T\nbsp;\T\nbsp;\T\nbsp;\T\nbsp;\T\nbsp;\ T\nbsp;\T\nbsp;\T\nbsp;\T\nbsp;\T\nbsp;\T\nbsp;\T\nbsp;\T\nbsp;\T\nbsp;\T\nbsp; \T\nbsp;\T\nbsp;\T\nbsp;\T\nbsp;\T\nbsp;\T\nbsp;\T\nbsp;\T\nbsp;\T\nbsp;\T\ nbsp;\T\nbsp;\T\nbsp; WENDY CONTACT NUMBER: [phone] 11/21/2020 [facility] - CHW CALLED PATIENT- DID NOT ANSWER PHONE-UNABLE TO LEAVE A MESSAGE-VOICEMAIL NOT SET UP. 11/16/2020 [facility] - CHW RECEIVED CASE MGMNT CONSULT TO [...] PATIENT. E.D. VISIT COUNT (12 MO.) 3 [facility] 17 NANCY Vásquez TOTAL 20 NOTE: Visits indicate total known visits. ED/UCC VISIT TRACKING (12 MO.) 03/26/2021 23:58 [facility] [place] TYPE: Emergency COMPLAINT: - NECK PAIN 03/25/2021 16:10 [facility] [place] TYPE: Emergency COMPLAINT: - NAUSEA 03/17/2021 14:06 [facility] [place] TYPE: Emergency DIAGNOSES: - Other complications following infusion, transfusion and therapeutic injection, initial encounter - RIGHT HAND SWELLING NEEDLE STICK 03/15/2021 01:14 [facility] [place] TYPE: Emergency COMPLAINT: - EAR AND SKIN PROBLEM DIAGNOSES: - Other specified disorders of the skin and subcutaneous tissue - Personal history of nicotine dependence - Essential (primary) hypertension - Disorder of the skin and subcutaneous tissue, unspecified - Other fci (current) drug therapy - Allergy status to other drugs, medicaments and biological substances 03/05/2021 00:24 [facility] [place] TYPE: Emergency COMPLAINT: - INFECTION DIAGNOSES: - Other fci (current) drug therapy - Allergy status to [...] dermatitis due to other agents - Other fci (current) drug therapy - Essential (primary) hypertension - Personal history of nicotine dependence 02/22/2021 18:26 [facility] [place] TYPE: Emergency COMPLAINT: - SKIN PROBLEM DIAGNOSES: - Other hospice patient care secretary (current) drug therapy - Methicillin resistant Staphylococcus aureus infection, unspecified site - Allergy status to other drugs, medicaments and biological substances - Methicillin resistant Staphylococcus aureus infection as the cause of diseases classified elsewhere - Personal history of nicotine dependence - lokie engineer (current) use of oral hypoglycemic drugs - Cutaneous abscess of right hand - Essential (primary) hypertension - Other specified local infections of the skin and subcutaneous tissue 02/17/2021 20:27 [facility] [place] TYPE: Emergency COMPLAINT: - RT ANKLE SKIN PROBLEM DIAGNOSES: - Essential (primary) hypertension - Other specified soft tissue disorders - Other fci (current) drug therapy - Personal history of nicotine dependence - Allergy status to other drugs, medicaments and biological substances - Encounter for immunization 01/29/2021 23:57 [facility] [place] TYPE: Emergency COMPLAINT: - infection DIAGNOSES: - infection 01/28/2021 14:25 [facility] [place] TYPE: Emergency DIAGNOSES: - Cellulitis of right upper limb - INFECTION IN HANDS AND ANKLE - Cellulitis of left upper limb - Cellulitis of left lower limb 12/22/2020 14:32 [facility] [place] TYPE: Emergency COMPLAINT: - SORES ON ARMS DIAGNOSES: - Methicillin resistant Staphylococcus aureus infection, unspecified site - Other hospice patient care secretary (current) drug therapy - Allergy status to other drugs, medicaments and biological substances - Essential (primary) hypertension 11/19/2020 20:00 [facility] [place] TYPE: Emergency COMPLAINT: - HAND NUMBNESS DIAGNOSES: - Other fci (current) drug therapy - Allergy status to other drugs, medicaments and biological substances - Essential (primary) hypertension - Paresthesia of skin 11/14/2020 14:17 [facility] [place] TYPE: Emergency COMPLAINT: - RT LEG SKIN ISSUE DIAGNOSES: - Other fci (current) drug therapy - Allergy status to other drugs, medicaments and biological substances - Essential (primary) hypertension - Cellulitis of face 11/08/2020 15:00 [facility] [place] TYPE: Emergency COMPLAINT: - DIFFICULTY BREATHING DIAGNOSES: - Allergy status to other drugs, medicaments and biological substances - Other fci (current) drug therapy - Unspecified asthma, uncomplicated - Essential (primary) hypertension - Cough 10/30/2020 16:[address] [facility] [place] TYPE: Emergency COMPLAINT: - INFECTION IN L FOOT, N/V DIAGNOSES: - Ingrowing nail - Essential (primary) hypertension - Other fci (current) drug therapy - Allergy status to other drugs, medicaments and biological substances 10/28/2020 01:09 [facility] [place] TYPE: Emergency COMPLAINT: - ALLERGIC REACTION DIAGNOSES: - Other hospice patient care secretary (current) drug therapy - Allergy status to [...] Cellulitis of right upper limb - Other fci (current) drug therapy - Essential (primary) hypertension - Allergy status to other drugs, medicaments and biological substances 06/01/2020 07:12 [facility] [place] TYPE: Emergency COMPLAINT: - POSSIBLE MEDICATION REACTION DIAGNOSES: - Headache, unspecified - Other hospice patient care secretary (current) drug therapy - Allergy status to [...] hypertension - Bipolar disorder, unspecified - Other fci (current) drug therapy INPATIENT VISIT TRACKING (12 MO.) 01/30/2021 23:57 [facility] [place] TYPE: Medical Surgical DIAGNOSES: - infection - Cellulitis of unspecified part of limb - Cellulitis of left lower limb [email or web address]
== END 2021-03-27 00:35 | disposition home or self-care (01) ==
LOC: ED 23:58
DX: L98.9 Disorder of the skin and subcutaneous tissue, unspecified (principal); F19.10 Other psychoactive substance abuse, uncomplicated; I10 Essential (primary) hypertension; Z87.891 Personal history of nicotine dependence; Z88.8 Allergy status to other drugs, medicaments and biological substances; Z79.899 Other long term (current) drug therapy
CPT/HCPCS: 99282

== ENCOUNTER 2021-04-08 01:45 | Emergency (ER) | payer MEDICARE, OTHER ==
[~2021-04-08] VITALS: Ht 185.4 cm; Wt 93.4 kg
--- OUTSIDE RECORDS SUMMARY | 2021-04-08 01:48 | XMS ---
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 09/06/2020 17:41 - Other Details: PATIENT LWBS. CRITERIA MET - [facility] - Has Care Guidelines - PDMP - 6 ED Visits in 6 Months - [facility] - 2 Visits in 30 Days - Group Notification CARE PROVIDERS BRENNA REYES Nurse Practitioner: 02/23/2021-Current PHONE: [phone] Savage Barragan [facility] 04/15/2018-Current PHONE: [phone] Care Guidelines exist for the following facilities: [facility] ( 08/01/2020 ) Care History Medical/Surgical 12/23/2020 [facility] PLEASE CONTACT WENDY - IF PATIENT IS WILLING TO TALK ABOUT RESOURCES AND OR HELP IN REGARDS TO SUBSTANCE USE. \T\nbsp;\T\nbsp;\T\nbsp;\T\nbsp;\T\nbsp;\T\ nbsp;\T\nbsp;\T\nbsp;\T\nbsp;\T\nbsp;\T\nbsp;\T\nbsp;\T\nbsp;\T\nbsp;\T\nbsp;\ T\nbsp;\T\nbsp;\T\nbsp;\T\nbsp;\T\nbsp;\T\nbsp;\T\nbsp;\T\nbsp;\T\nbsp;\T\nbsp; \T\nbsp;\T\nbsp;\T\nbsp;\T\nbsp;\T\nbsp;\T\nbsp;\T\nbsp;\T\nbsp;\T\nbsp;\T\ nbsp;\T\nbsp;\T\nbsp; WENDY CONTACT NUMBER: [phone] 11/21/2020 [facility] - CHW CALLED [...] MANAGEMENT DEPT TO SEE PATIENT. Behavioral 12/23/2020 [facility] Discussed: Need to reestablish with psychiatric services; contact psychiatric nurse practitioner Eslinger and inquire if your Medicare is accepted. Patient reports that his Latuda, lithium, Depakote, BuSpar, and trazodone are currently being maintained by [facility] until patient establishes care elsewhere.\T\nbsp;\T\nbsp; E.D. VISIT COUNT (12 MO.) 3 [facility] 18 NANCY Vásquez TOTAL 21 NOTE: Visits indicate total known visits. ED/UCC VISIT TRACKING (12 MO.) 04/08/2021 01:45 N[facility] [place] TYPE: Emergency COMPLAINT: - TOOK UNKNOWN DRUG 03/26/2021 23:[address] [facility] [place] TYPE: Emergency COMPLAINT: - NECK PAIN DIAGNOSES: - Essential (primary) hypertension - Rash and other nonspecific skin eruption - Disorder of the skin and subcutaneous tissue, unspecified - Other terminal manager (current) drug therapy - Other psychoactive substance abuse, uncomplicated - Personal history of nicotine dependence - Allergy status to other drugs, medicaments and biological substances 03/25/2021 16:10 [facility] [place] TYPE: Emergency COMPLAINT: - NAUSEA DIAGNOSES: - Essential (primary) hypertension - Other specified disorders of pigmentation - Schizophrenia, unspecified - Personal history of nicotine dependence - Anxiety disorder, unspecified - Other residential (current) drug therapy - Allergy status to other drugs, medicaments and biological substances 03/17/2021 14:06 [facility] [place] TYPE: Emergency DIAGNOSES: - Other complications following infusion, transfusion and therapeutic injection, initial encounter - RIGHT HAND SWELLING NEEDLE STICK 03/15/2021 01:[address] [facility] [address] [facility] [place] TYPE: Emergency COMPLAINT: - EAR AND SKIN PROBLEM DIAGNOSES: - Other specified disorders of the skin and subcutaneous tissue - Personal history of nicotine dependence - Essential (primary) hypertension - Disorder of the skin and subcutaneous tissue, unspecified - Other terminal manager (current) drug therapy - Allergy status to other drugs, medicaments and biological substances 03/05/2021 00:24 [facility] [place] TYPE: Emergency COMPLAINT: - INFECTION DIAGNOSES: - Other residential (current) drug therapy - Allergy status to other drugs, medicaments and biological substances - Essential (primary) hypertension - Personal history of nicotine dependence - Other specified local infections of the skin and subcutaneous tissue - Local infection of the skin and subcutaneous tissue, unspecified 03/01/2021 06:40 [facility] [place] [facility] TYPE: Emergency COMPLAINT: - SWELLING, PUS, PAIN, NOT FEELING WELL IN GENERAL DIAGNOSES: - Methicillin resistant Staphylococcus aureus infection as the cause of diseases classified elsewhere - Allergy status to other drugs, medicaments and biological substances - Unspecified contact dermatitis due to other agents - Other terminal manager (current) drug therapy - Essential (primary) hypertension - Personal history of nicotine dependence 02/22/2021 18:26 [facility] [place] [facility] TYPE: Emergency COMPLAINT: - SKIN PROBLEM DIAGNOSES: - Other terminal manager (current) drug therapy - Methicillin resistant Staphylococcus aureus infection, unspecified site - Allergy status to other drugs, medicaments and biological substances - Methicillin resistant Staphylococcus aureus infection as the cause of diseases classified elsewhere - Personal history of nicotine dependence - rn long term care (current) use of oral hypoglycemic drugs - Cutaneous abscess of right hand - Essential (primary) hypertension - Other specified local infections of the skin and subcutaneous tissue 02/17/2021 20:27 [facility] [place] TYPE: Emergency COMPLAINT: - RT ANKLE SKIN PROBLEM DIAGNOSES: - Essential (primary) hypertension - Other specified soft tissue disorders - Other residential (current) drug therapy - Personal history of nicotine dependence - Allergy status to other drugs, medicaments and biological substances - Encounter for immunization 01/29/2021 23:57 [facility] [place] TYPE: Emergency COMPLAINT: - infection DIAGNOSES: - infection 01/28/2021 14:25 [facility] [place] TYPE: Emergency DIAGNOSES: - Cellulitis of right upper limb - INFECTION IN HANDS AND ANKLE - Cellulitis of left upper limb - Cellulitis of left lower limb 12/22/2020 14:32 [facility] [place] TYPE: Emergency COMPLAINT: - SORES ON ARMS DIAGNOSES: - Methicillin resistant Staphylococcus aureus infection, unspecified site - Other residential (current) drug therapy - Allergy status to other drugs, medicaments and biological substances - Essential (primary) hypertension 11/19/2020 20:00 [facility] [place] TYPE: Emergency COMPLAINT: - HAND NUMBNESS DIAGNOSES: - Other terminal manager (current) drug therapy - Allergy status to other drugs, medicaments and biological substances - Essential (primary) hypertension - Paresthesia of skin 11/14/2020 14:17 [facility] [place] TYPE: Emergency COMPLAINT: - RT LEG SKIN ISSUE DIAGNOSES: - Other residential (current) drug therapy - Allergy status to other drugs, medicaments and biological substances - Essential (primary) hypertension - Cellulitis of face 11/08/2020 15:00 [facility] [place] TYPE: Emergency COMPLAINT: - DIFFICULTY BREATHING DIAGNOSES: - Allergy status to other drugs, medicaments and biological substances - Other terminal manager (current) drug therapy - Unspecified asthma, uncomplicated - Essential (primary) hypertension - Cough 10/30/2020 16:18 [facility] [place] TYPE: Emergency COMPLAINT: - INFECTION IN L FOOT, N/V DIAGNOSES: - Ingrowing nail - Essential (primary) hypertension - Other residential (current) drug therapy - Allergy status to other drugs, medicaments and biological substances 10/28/2020 01:09 [facility] [place] TYPE: Emergency COMPLAINT: - ALLERGIC REACTION DIAGNOSES: - Other residential (current) drug therapy - Allergy status to other drugs, medicaments and biological substances - Personal history of nicotine dependence - Other adverse food reactions, not elsewhere classified, initial encounter - Essential (primary) hypertension 09/06/2020 17:[address] [facility] [place] TYPE: Emergency COMPLAINT: - ANXIETY 07/10/2020 18:[address] [facility] [place] TYPE: Emergency COMPLAINT: - HAND SWELLING DIAGNOSES: - Personal history of nicotine dependence - Cellulitis of right upper limb - Other residential (current) drug therapy - Essential (primary) hypertension - Allergy status to other drugs, medicaments and biological substances 06/01/2020 07:12 [place] [facility] [place] TYPE: Emergency COMPLAINT: - POSSIBLE MEDICATION REACTION DIAGNOSES: - Headache, unspecified - Other residential (current) drug therapy - Allergy status to other drugs, medicaments and biological substances - Bipolar disorder, unspecified - Allergy status to other drugs, medicaments and biological substances - Epigastric pain - Headache, unspecified - Other malaise - Essential (primary) hypertension Plus 1 More Visit INPATIENT VISIT TRACKING (12 MO.) 01/30/2021 23:57 [facility] [place] TYPE: Medical Surgical DIAGNOSES: - infection - Cellulitis of unspecified part of limb - Cellulitis of left lower limb [email or web address]
[2021-04-08] MEDS ORDERED: MUPIROCIN22 GM TOP (02:03)
== END 2021-04-08 02:33 | disposition home or self-care (01) ==
LOC: ED 01:45
DX: T40.491A Poisoning by other synthetic narcotics, accidental (unintentional), initial encounter (principal); T43.621A Poisoning by amphetamines, accidental (unintentional), initial encounter; T40.601A Poisoning by unspecified narcotics, accidental (unintentional), initial encounter; I10 Essential (primary) hypertension; Z87.891 Personal history of nicotine dependence; Z88.8 Allergy status to other drugs, medicaments and biological substances; Z79.899 Other long term (current) drug therapy
CPT/HCPCS: 99284

== ENCOUNTER 2021-04-15 20:57 | Emergency (ER) | payer MEDICARE, OTHER ==
[~2021-04-15] VITALS: Ht 185.4 cm; Wt 93.4 kg
[~2021-04-15 20:57] MED LIST changes: +MUPIROCIN22 GM TOP
--- OUTSIDE RECORDS SUMMARY | 2021-04-15 21:00 | XMS ---
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 CRITERIA MET - [facility] - 2 Visits in 30 Days - [facility] - Has Care Guidelines - PDMP - Group Notification - 6 ED Visits in 6 Months CARE PROVIDERS BRENNA REYES Nurse Practitioner: 02/23/2021-Current PHONE: [phone] Savage Barragan [facility] 04/15/2018-Current PHONE: [phone] Care Guidelines exist for the following facilities: [facility] ( 08/01/2020 ) Care History Medical/Surgical 12/23/2020 [facility] PLEASE CONTACT WENDY - IF PATIENT IS WILLING TO TALK ABOUT RESOURCES AND OR HELP IN REGARDS TO SUBSTANCE USE. \T\nbsp;\T\nbsp;\T\nbsp;\T\nbsp;\T\nbsp;\T\ nbsp;\T\nbsp;\T\nbsp;\T\nbsp;\T\nbsp;\T\nbsp;\T\nbsp;\T\nbsp;\T\nbsp;\T\nbsp;\ T\nbsp;\T\nbsp;\T\nbsp;\T\nbsp;\T\nbsp;\T\nbsp;\T\nbsp;\T\nbsp;\T\nbsp;\T\nbsp; \T\nbsp;\T\nbsp;\T\nbsp;\T\nbsp;\T\nbsp;\T\nbsp;\T\nbsp;\T\nbsp;\T\nbsp;\T\ nbsp;\T\nbsp;\T\nbsp; WENDY CONTACT NUMBER: [phone] 11/21/2020 [facility] - CHW CALLED PATIENT- DID NOT ANSWER PHONE-UNABLE TO LEAVE A MESSAGE-VOICEMAIL NOT SET UP. 11/16/2020 [facility] - CHW RECEIVED CASE MGMNT CONSULT TO [...] MANAGEMENT DEPT TO SEE PATIENT. Behavioral 12/23/2020 [facility] Discussed: Need to reestablish with psychiatric services; contact psychiatric nurse practitioner Eslinger and inquire if your Medicare is accepted. Patient reports that his Latuda, lithium, Depakote, BuSpar, and trazodone are currently being maintained by [facility] until patient establishes care elsewhere.\T\nbsp;\T\nbsp; E.D. VISIT COUNT (12 MO.) 3 [facility] 19 NANCY Vásquez TOTAL 22 NOTE: Visits indicate total known visits. ED/UCC VISIT TRACKING (12 MO.) 04/15/2021 20:58 [facility] [place] TYPE: Emergency COMPLAINT: - TONGUE SWELLING, LIGHT HEADED 04/08/2021 01:45 [facility] [place] TYPE: Emergency COMPLAINT: - TOOK UNKNOWN DRUG DIAGNOSES: - Essential (primary) hypertension - Poisoning by other synthetic narcotics, accidental (unintentional), initial encounter - Poisoning by amphetamines, accidental (unintentional), initial encounter - Other detention (current) drug therapy - Allergy status to other drugs, medicaments and biological substances - Personal history of nicotine dependence - Poisoning by unspecified narcotics, accidental (unintentional), initial encounter 03/26/2021 23:58 [facility] [place] TYPE: Emergency COMPLAINT: - NECK PAIN DIAGNOSES: - Essential (primary) hypertension - Rash and other nonspecific skin eruption - Disorder of the skin and subcutaneous tissue, unspecified - Other roofer assistant (current) drug therapy - Other psychoactive substance abuse, uncomplicated - Personal history of nicotine dependence - Allergy status to other drugs, medicaments and biological substances 03/25/2021 16:10 [facility] [place] TYPE: Emergency COMPLAINT: - NAUSEA DIAGNOSES: - Essential (primary) hypertension - Other specified disorders of pigmentation - Schizophrenia, unspecified - Personal history of nicotine dependence - Anxiety disorder, unspecified - Other detention (current) drug therapy - Allergy status to other drugs, medicaments and biological substances 03/17/2021 14:06 [facility] [place] TYPE: Emergency DIAGNOSES: - Other [...] skin and subcutaneous tissue, unspecified - Other roofer assistant (current) drug therapy - Allergy status to other drugs, medicaments and biological substances 03/05/2021 00:24 [facility] [place] TYPE: Emergency COMPLAINT: - INFECTION DIAGNOSES: - Other roofer assistant (current) drug therapy - Allergy status to other drugs, medicaments and biological substances - Essential (primary) hypertension - Personal history of nicotine dependence - Other specified local infections of the skin and subcutaneous tissue - Local infection of the skin and subcutaneous tissue, unspecified [facility]2021 06:[facility] [place] [facility] COMPLAINT: - SWELLING, PUS, PAIN, NOT FEELING WELL IN GENERAL DIAGNOSES: - Methicillin resistant Staphylococcus aureus infection as the cause of diseases classified elsewhere - Allergy status to other drugs, medicaments and biological substances - Unspecified contact dermatitis due to other agents - Other roofer assistant (current) drug therapy - Essential (primary) hypertension - Personal history of nicotine dependence 02[facility]22[facility]2021 18:[facility] [place] [facility] COMPLAINT: - SKIN PROBLEM DIAGNOSES: - Other detention (current) drug therapy - Methicillin resistant Staphylococcus aureus infection, unspecified site - Allergy status to other drugs, medicaments and biological substances - Methicillin resistant Staphylococcus aureus infection as the cause of diseases classified elsewhere - Personal history of nicotine dependence - [facility] (current) use of oral hypoglycemic drugs - Cutaneous abscess of right hand - Essential (primary) hypertension - Other specified local infections of the skin and subcutaneous tissue 02/17/2021 20:27 [facility] [place] [facility] COMPLAINT: - RT ANKLE SKIN PROBLEM DIAGNOSES: - Essential (primary) hypertension - Other specified soft tissue disorders - Other roofer assistant (current) drug therapy - Personal history of nicotine dependence - Allergy status to other drugs, medicaments and biological substances - Encounter for immunization 01/29/2021 23:57 [facility] [place] TYPE: Emergency COMPLAINT: - infection DIAGNOSES: - infection 01/28/2021 14:25 [facility] [place] TYPE: Emergency DIAGNOSES: - Cellulitis of right upper limb - INFECTION IN HANDS AND ANKLE - Cellulitis of left upper limb - Cellulitis of left lower limb 12/22/2020 14:32 [facility] [place] TYPE: Emergency COMPLAINT: - SORES ON ARMS DIAGNOSES: - Methicillin resistant Staphylococcus aureus infection, unspecified site - Other roofer assistant (current) drug therapy - Allergy status to other drugs, medicaments and biological substances - Essential (primary) hypertension 11/19/2020 20:00 [facility] [place] TYPE: Emergency COMPLAINT: - HAND NUMBNESS DIAGNOSES: - Other roofer assistant (current) drug therapy - Allergy status to other drugs, medicaments and biological substances - Essential (primary) hypertension - Paresthesia of skin 11/14/2020 14:17 [facility] [place] TYPE: Emergency COMPLAINT: - RT LEG SKIN ISSUE DIAGNOSES: - Other detention (current) drug therapy - Allergy status to other drugs, medicaments and biological substances - Essential (primary) hypertension - Cellulitis of face 11/08/2020 15:00 [facility] [place] TYPE: Emergency COMPLAINT: - DIFFICULTY BREATHING DIAGNOSES: - Allergy status to other drugs, medicaments and biological substances - Other roofer assistant (current) drug therapy - Unspecified asthma, uncomplicated - Essential (primary) hypertension - Cough 10/30/2020 16:18 [facility] [place] TYPE: Emergency COMPLAINT: [...] Cellulitis of right upper limb - Other roofer assistant (current) drug therapy - Essential (primary) hypertension - Allergy status to other drugs, medicaments and biological substances Plus 2 More Visits INPATIENT VISIT TRACKING (12 MO.) 01/30/2021 23:57 [facility] [place] TYPE: Medical Surgical DIAGNOSES: - infection - Cellulitis of unspecified part of limb - Cellulitis of left lower limb [email or web address]
[2021-04-15] MEDS ORDERED: AMOX TR-K CLV1 EAC1 PO (21:09)
== END 2021-04-15 21:40 | disposition home or self-care (01) ==
LOC: ED 20:57
DX: I10 Essential (primary) hypertension (principal); R22.0 Localized swelling, mass and lump, head; F19.10 Other psychoactive substance abuse, uncomplicated; Z87.891 Personal history of nicotine dependence; Z88.8 Allergy status to other drugs, medicaments and biological substances; Z79.899 Other long term (current) drug therapy
CPT/HCPCS: 99283

== ENCOUNTER 2021-04-27 22:54 | Emergency (ER) | payer MEDICARE, OTHER ==
[~2021-04-27] VITALS: Ht 185.4 cm; Wt 93.0 kg
[~2021-04-27 22:54] MED LIST changes: +AMOX TR-K CLV1 EAC1 PO
--- OUTSIDE RECORDS SUMMARY | 2021-04-27 22:56 | XMS ---
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 CRITERIA MET - PDMP - [facility] - 2 Visits in 30 Days - Group Notification - [facility] - Has Care Guidelines - 6 ED Visits in 6 Months CARE PROVIDERS BRENNA REYES Nurse Practitioner: 02/23/2021-Current PHONE: [phone] Savage Barragan [facility] 04/15/2018-Current PHONE: [phone] Care Guidelines exist for the following facilities: [facility] ( 08/01/2020 ) Care History Behavioral 12/23/2020 [facility] Discussed: Need to reestablish with psychiatric services; contact psychiatric nurse practitioner Ida and inquire if your Medicare is accepted. Patient reports that his Latuda, lithium, Depakote, BuSpar, and trazodone are currently being maintained by [facility] until patient establishes care elsewhere.\T\nbsp;\T\nbsp; Medical/Surgical 12/23/2020 [facility] PLEASE CONTACT WENDY - IF PATIENT IS WILLING TO TALK ABOUT RESOURCES AND OR HELP IN REGARDS TO SUBSTANCE USE. \T\nbsp;\T\nbsp;\T\nbsp;\T\nbsp;\T\nbsp;\T\ nbsp;\T\nbsp;\T\nbsp;\T\nbsp;\T\nbsp;\T\nbsp;\T\nbsp;\T\nbsp;\T\nbsp;\T\nbsp;\ T\nbsp;\T\nbsp;\T\nbsp;\T\nbsp;\T\nbsp;\T\nbsp;\T\nbsp;\T\nbsp;\T\nbsp;\T\nbsp; \T\nbsp;\T\nbsp;\T\nbsp;\T\nbsp;\T\nbsp;\T\nbsp;\T\nbsp;\T\nbsp;\T\nbsp;\T\ nbsp;\T\nbsp;\T\nbsp; WENDY CONTACT NUMBER: [phone] 11/21/2020 [facility] - CHW CALLED PATIENT- DID NOT ANSWER PHONE-UNABLE TO LEAVE A MESSAGE-VOICEMAIL NOT SET UP. 11/16/2020 [facility] - CHW RECEIVED CASE MGMNT CONSULT [...] PATIENT. E.D. VISIT COUNT (12 MO.) 3 [facility] 20 NANCY Vásquez TOTAL 23 NOTE: Visits indicate total known visits. ED/UCC VISIT TRACKING (12 MO.) 04/27/2021 22:55 [facility] [place] TYPE: Emergency COMPLAINT: - UPPER RT ARM INFECTION 04[facility]15[facility]2021 20:58 [facility] COMPLAINT: - TONGUE SWELLING, LIGHT HEADED DIAGNOSES: - Allergy status to other drugs, medicaments and biological substances - Personal history of nicotine dependence - Essential (primary) hypertension - Other termite treater (current) drug therapy - Other psychoactive substance abuse, uncomplicated - Localized swelling, mass and lump, head 04/08/2021 01:45 [facility] [place] [facility] COMPLAINT: - TOOK UNKNOWN DRUG DIAGNOSES: - Essential (primary) hypertension - Poisoning by other synthetic narcotics, accidental (unintentional), initial encounter - Poisoning by amphetamines, accidental (unintentional), initial encounter - Other termite treater (current) drug therapy - Allergy status to other drugs, medicaments and biological substances - Personal history of nicotine dependence - Poisoning by unspecified narcotics, accidental (unintentional), initial encounter 03/26/2021 23:58 [facility] [place] [facility] COMPLAINT: - NECK PAIN DIAGNOSES: - Essential (primary) hypertension - Rash and other nonspecific skin eruption - Disorder of the skin and subcutaneous tissue, unspecified - Other fdc (current) drug therapy - Other psychoactive substance abuse, uncomplicated - Personal history of nicotine dependence - Allergy status to other drugs, medicaments and biological substances 03/25/2021 16:10 [facility] [place] TYPE: Emergency COMPLAINT: - NAUSEA DIAGNOSES: - Essential (primary) hypertension - Other specified disorders of pigmentation - Schizophrenia, unspecified - Personal history of nicotine dependence - Anxiety disorder, unspecified - Other fdc (current) drug therapy - Allergy status to other drugs, medicaments and biological substances 03/17/2021 14:06 [facility] [place] TYPE: Emergency DIAGNOSES: - [...] skin and subcutaneous tissue, unspecified - Other fdc (current) drug therapy - Allergy status to other drugs, medicaments and biological substances 03/05/2021 00:24 [facility] [place] TYPE: Emergency COMPLAINT: - INFECTION DIAGNOSES: - Other termite treater (current) drug therapy - Allergy status to other drugs, medicaments and biological substances - Essential (primary) hypertension - Personal history of nicotine dependence - Other specified local infections of the skin and subcutaneous tissue - Local infection of the skin and subcutaneous tissue, unspecified 03/01/2021 06:40 [facility] [place] TYPE: Emergency COMPLAINT: - SWELLING, PUS, PAIN, NOT FEELING WELL IN GENERAL DIAGNOSES: - Methicillin resistant Staphylococcus aureus infection as the cause of diseases classified elsewhere - Allergy status to other drugs, medicaments and biological substances - Unspecified contact dermatitis due to other agents - Other fdc (current) drug therapy - Essential (primary) hypertension - Personal history of nicotine dependence 02/22/2021 18:26 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 - Cutaneous abscess of right hand - Essential (primary) hypertension - Other specified local infections of the skin and subcutaneous tissue 02/17/2021 20:27 [facility] [place] TYPE: Emergency COMPLAINT: - RT ANKLE SKIN PROBLEM DIAGNOSES: - Essential (primary) hypertension - Other specified soft tissue disorders - Other fdc (current) drug therapy - Personal history of nicotine dependence - Allergy status to other drugs, medicaments and biological substances - Encounter for immunization 01/29/2021 23:57 [email or web address] [place] TYPE: Emergency COMPLAINT: - infection DIAGNOSES: - infection [facility] DIAGNOSES: - Cellulitis of right upper limb - INFECTION IN HANDS AND ANKLE - Cellulitis of left upper limb - Cellulitis of left lower limb 12/22/2020 14:32 [facility] [place] TYPE: Emergency COMPLAINT: - SORES ON ARMS DIAGNOSES: - Methicillin resistant Staphylococcus aureus infection, unspecified site - Other termite treater (current) drug therapy - Allergy status to other drugs, medicaments and biological substances - Essential (primary) hypertension 11/19/2020 20:00 [facility] [place] TYPE: Emergency COMPLAINT: - HAND NUMBNESS DIAGNOSES: - Other termite treater (current) drug therapy - Allergy status to other drugs, medicaments and biological substances - Essential (primary) hypertension - Paresthesia of skin 11/14/2020 14:17 [facility] [place] TYPE: Emergency COMPLAINT: - RT LEG SKIN ISSUE DIAGNOSES: - Other termite treater (current) drug therapy - Allergy status to other drugs, medicaments and biological substances - Essential (primary) hypertension - Cellulitis of face 11/08/2020 15:00 [facility] [place] TYPE: Emergency COMPLAINT: - DIFFICULTY BREATHING DIAGNOSES: - Allergy status to other drugs, medicaments and biological substances - Other fdc (current) drug therapy - Unspecified asthma, uncomplicated - Essential (primary) hypertension - Cough 10/30/2020 16:18 [facility] [place] TYPE: Emergency COMPLAINT: - INFECTION IN L FOOT, N/V DIAGNOSES: - Ingrowing nail - Essential (primary) hypertension - Other termite treater (current) drug therapy - Allergy status to other drugs, medicaments and biological substances 10/28/2020 01:09 [facility] [place] TYPE: Emergency COMPLAINT: - ALLERGIC REACTION DIAGNOSES: - Other termite treater (current) drug therapy - Allergy status to other drugs, medicaments and biological substances - Personal history of nicotine dependence - Other adverse food reactions, not elsewhere classified, initial encounter - Essential (primary) hypertension 09/06/2020 17:41 [facility] [place] TYPE: Emergency COMPLAINT: - ANXIETY Plus 3 More Visits INPATIENT VISIT TRACKING (12 MO.) 01/30/2021 23:57 [facility] [place] TYPE: Medical Surgical DIAGNOSES: - infection - Cellulitis of unspecified part of limb - Cellulitis of left lower limb [email or web address]
[2021-04-27] MEDS ORDERED: PROPRANOLOL HCL80 MG PO (23:38)
[2021-04-27] MEDS ORDERED: DOXYCYCLINE HY100 MG PO (23:51)
[2021-04-28] MEDS ORDERED: ZYPREXA20 MG PO (18:04)
[2021-04-29] MEDS ORDERED: AMOX TR-K CLV1 EAC1 PO (17:13)
== END 2021-04-28 00:04 | disposition home or self-care (01) ==
LOC: ED 22:54
DX: S41.101A Unspecified open wound of right upper arm, initial encounter (principal); L08.9 Local infection of the skin and subcutaneous tissue, unspecified; I10 Essential (primary) hypertension; Z87.891 Personal history of nicotine dependence; Z88.8 Allergy status to other drugs, medicaments and biological substances; Z79.899 Other long term (current) drug therapy; Z59.00 Homelessness unspecified; X58.XXXA Exposure to other specified factors, initial encounter
CPT/HCPCS: 99282

== ENCOUNTER 2021-04-28 16:47 | Emergency (ER) | payer MEDICARE, OTHER ==
[~2021-04-28] VITALS: Ht 185.4 cm; Wt 93.4 kg
[~2021-04-28 16:47] MED LIST changes: +PROPRANOLOL HCL80 MG PO
--- OUTSIDE RECORDS SUMMARY | 2021-04-28 16:48 | XMS ---
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 CRITERIA MET - Group Notification - 6 ED Visits in 6 Months - PDMP - [facility] - 2 Visits in 30 Days - [facility] - Has Care Guidelines CARE PROVIDERS BRENNA REYES Nurse Practitioner: 02/23/2021-Current PHONE: [phone] Savage Barragan [facility] 04/15/2018-Current PHONE: [phone] Care Guidelines exist for the following facilities: [facility] ( 08/01/2020 ) Care History Medical/Surgical 12/23/2020 [facility] PLEASE CONTACT WENDY - IF PATIENT IS WILLING TO TALK ABOUT RESOURCES AND OR HELP IN REGARDS TO SUBSTANCE USE. \T\nbsp;\T\nbsp;\T\nbsp;\T\nbsp;\T\nbsp;\T\ nbsp;\T\nbsp;\T\nbsp;\T\nbsp;\T\nbsp;\T\nbsp;\T\nbsp;\T\nbsp;\T\nbsp;\T\nbsp;\ T\nbsp;\T\nbsp;\T\nbsp;\T\nbsp;\T\nbsp;\T\nbsp;\T\nbsp;\T\nbsp;\T\nbsp;\T\nbsp; \T\nbsp;\T\nbsp;\T\nbsp;\T\nbsp;\T\nbsp;\T\nbsp;\T\nbsp;\T\nbsp;\T\nbsp;\T\ nbsp;\T\nbsp;\T\nbsp; WENDY CONTACT NUMBER: [phone] 11/21/2020 [facility] - CHW CALLED PATIENT- DID NOT ANSWER PHONE-UNABLE TO LEAVE A MESSAGE-VOICEMAIL NOT SET UP. 11/16/2020 [facility] - CHW RECEIVED CASE MGMNT CONSULT [...] MANAGEMENT DEPT TO SEE PATIENT. Behavioral 12/23/2020 [facility] Discussed: Need to reestablish with psychiatric services; contact psychiatric nurse practitioner Eslinger and inquire if your Medicare is accepted. Patient reports that his Latuda, lithium, Depakote, BuSpar, and trazodone are currently being maintained by [facility] until patient establishes care elsewhere.\T\nbsp;\T\nbsp; E.D. VISIT COUNT (12 MO[address] 3 [facility] 21 NANCY Vásquez TOTAL 24 NOTE: Visits indicate total known visits. ED/UCC VISIT TRACKING (12 MO.) 04/28/2021 16:47 [facility] [place] TYPE: Emergency COMPLAINT: - ABDOMINAL PAIN 04/27/2021 22:55 [facility] [place] TYPE: Emergency COMPLAINT: - UPPER RT ARM INFECTION 04/15/2021 20:58 [facility] [place] TYPE: Emergency COMPLAINT: - TONGUE SWELLING, LIGHT HEADED DIAGNOSES: - Allergy status to other drugs, medicaments and biological substances - Personal history of nicotine dependence - Essential (primary) hypertension - Other chcf (current) drug therapy - Other psychoactive substance abuse, uncomplicated - Localized swelling, mass and lump, head 04/08/2021 01:45 [facility] [place] TYPE: Emergency COMPLAINT: - TOOK UNKNOWN DRUG DIAGNOSES: - Essential (primary) hypertension - Poisoning by other synthetic narcotics, accidental (unintentional), initial encounter - Poisoning by amphetamines, accidental (unintentional), initial encounter - Other veterinarian small animal (current) drug therapy - Allergy status to other drugs, medicaments and biological substances - Personal history of nicotine dependence - Poisoning by unspecified narcotics, accidental (unintentional), initial encounter 03/26/2021 23:58 [facility] [place] TYPE: Emergency COMPLAINT: - NECK PAIN DIAGNOSES: - Essential (primary) hypertension - Rash and other nonspecific skin eruption - Disorder of the skin and subcutaneous tissue, unspecified - Other chcf (current) drug therapy - Other psychoactive substance abuse, uncomplicated - Personal history of nicotine dependence - Allergy status to other drugs, medicaments and biological substances 03/25/2021 16:10 [facility] [place] TYPE: Emergency COMPLAINT: - NAUSEA DIAGNOSES: - Essential (primary) hypertension - Other specified disorders of pigmentation - Schizophrenia, unspecified - Personal history of nicotine dependence - Anxiety disorder, unspecified - Other chcf (current) drug therapy - Allergy status to other drugs, medicaments and biological substances 03/17/2021 14:06 [facility] [place] TYPE: Emergency DIAGNOSES: - Other [...] skin and subcutaneous tissue, unspecified - Other chcf (current) drug therapy - Allergy status to other drugs, medicaments and biological substances 03/05/2021 00:24 [facility] [place] TYPE: Emergency COMPLAINT: - INFECTION DIAGNOSES: - Other chcf (current) drug therapy - Allergy status to [...] dermatitis due to other agents - Other chcf (current) drug therapy - Essential (primary) hypertension - Personal history of nicotine dependence 02/22/2021 18:26 [facility] [place] TYPE: Emergency COMPLAINT: - SKIN PROBLEM DIAGNOSES: - Other veterinarian small animal (current) drug therapy - Methicillin resistant Staphylococcus aureus infection, unspecified site - Allergy status to other drugs, medicaments and biological substances - Methicillin resistant Staphylococcus aureus infection as the cause of diseases classified elsewhere - Personal history of nicotine dependence - 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 - Cutaneous abscess of right hand - Essential (primary) hypertension - Other specified local infections of the skin and subcutaneous tissue 02/17/2021 20:27 [facility] [place] TYPE: Emergency COMPLAINT: - RT ANKLE SKIN PROBLEM DIAGNOSES: - Essential (primary) hypertension - Other specified soft tissue disorders - Other veterinarian small animal (current) drug therapy - Personal history of nicotine dependence - Allergy status to other drugs, medicaments and biological substances - Encounter for immunization 01/29/2021 23:[facility] TYPE: Emergency COMPLAINT: - infection DIAGNOSES: - infection 01/28/2021 14:[address] [facility] [employer] [place] TYPE: Emergency DIAGNOSES: - Cellulitis of right upper limb - INFECTION IN HANDS AND ANKLE - Cellulitis of left upper limb - Cellulitis of left lower limb 12/22/2020 14:32 [facility] [place] TYPE: Emergency COMPLAINT: - SORES ON ARMS DIAGNOSES: - Methicillin resistant Staphylococcus aureus infection, unspecified site - Other chcf (current) drug therapy - Allergy status to other drugs, medicaments and biological substances - Essential (primary) hypertension 11/19/2020 20:00 [facility] [place] TYPE: Emergency COMPLAINT: - HAND NUMBNESS DIAGNOSES: - Other veterinarian small animal (current) drug therapy - Allergy status to other drugs, medicaments and biological substances - Essential (primary) hypertension - Paresthesia of skin 11/14/2020 14:17 [facility] [place] TYPE: Emergency COMPLAINT: - RT LEG SKIN ISSUE DIAGNOSES: - Other chcf (current) drug therapy - Allergy status to other drugs, medicaments and biological substances - Essential (primary) hypertension - Cellulitis of face 11/08/2020 15:00 [facility] [place] TYPE: Emergency COMPLAINT: - DIFFICULTY BREATHING DIAGNOSES: - Allergy status to other drugs, medicaments and biological substances - Other veterinarian small animal (current) drug therapy - Unspecified asthma, uncomplicated - Essential (primary) hypertension - Cough 10/30/2020 16:18 [facility] [place] TYPE: Emergency COMPLAINT: - INFECTION IN L FOOT, N/V DIAGNOSES: - Ingrowing nail - Essential (primary) hypertension - Other chcf (current) drug therapy - Allergy status to other drugs, medicaments and biological substances 10/28/2020 01:09 [facility] [place] TYPE: Emergency COMPLAINT: - ALLERGIC REACTION DIAGNOSES: - Other veterinarian small animal (current) drug therapy - Allergy status to other drugs, medicaments and biological substances - Personal history of nicotine dependence - Other adverse food reactions, not elsewhere classified, initial encounter - Essential (primary) hypertension Plus 4 More Visits INPATIENT VISIT TRACKING (12 MO.) 01/30/2021 23:57 [facility] [place] TYPE: Medical Surgical DIAGNOSES: - infection - Cellulitis of unspecified part of limb - Cellulitis of left lower limb [email or web address]
[2021-04-28] MEDS ORDERED: ZYPREXA20 MG PO (18:04)
[2021-04-29] MEDS ORDERED: AMOX TR-K CLV1 EAC1 PO (17:13)
[2021-05-02] MEDS ORDERED: DISKETS40 MG PO (01:21)
== END 2021-04-28 18:15 | disposition home or self-care (01) ==
LOC: ED 16:47
DX: L03.115 Cellulitis of right lower limb (principal); I10 Essential (primary) hypertension; Z87.891 Personal history of nicotine dependence; Z88.8 Allergy status to other drugs, medicaments and biological substances; Z79.899 Other long term (current) drug therapy
CPT/HCPCS: 99283

== ENCOUNTER 2021-04-29 00:01 | Emergency (ER) | payer MEDICARE, OTHER ==
[~2021-04-29] VITALS: Ht 185.4 cm; Wt 93.4 kg
--- OUTSIDE RECORDS SUMMARY | 2021-04-29 00:08 | XMS ---
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 CRITERIA MET - 6 ED Visits in 6 Months - [facility] - 2 Visits in 30 Days - Group Notification - [facility] - Has Care Guidelines CARE PROVIDERS BRENNA REYES Nurse Practitioner: 02/23/2021-Current PHONE: [phone] Savage Barragan [facility] 04/15/2018-Current PHONE: [phone] Care Guidelines exist for the following facilities: [facility] ( 08/01/2020 ) Care History Medical/Surgical 12/23/2020 [facility] PLEASE CONTACT WENDY - IF PATIENT IS WILLING TO TALK ABOUT RESOURCES AND OR HELP IN REGARDS TO SUBSTANCE USE. \T\nbsp;\T\nbsp;\T\nbsp;\T\nbsp;\T\nbsp;\T\ nbsp;\T\nbsp;\T\nbsp;\T\nbsp;\T\nbsp;\T\nbsp;\T\nbsp;\T\nbsp;\T\nbsp;\T\nbsp;\ T\nbsp;\T\nbsp;\T\nbsp;\T\nbsp;\T\nbsp;\T\nbsp;\T\nbsp;\T\nbsp;\T\nbsp;\T\nbsp; \T\nbsp;\T\nbsp;\T\nbsp;\T\nbsp;\T\nbsp;\T\nbsp;\T\nbsp;\T\nbsp;\T\nbsp;\T\ nbsp;\T\nbsp;\T\nbsp; WENDY CONTACT NUMBER: [phone] 11/21/2020 [facility] - CHW CALLED PATIENT- DID NOT ANSWER PHONE-UNABLE TO LEAVE A MESSAGE-VOICEMAIL NOT SET UP. 11/16/2020 [facility] - CHW RECEIVED CASE MGMNT CONSULT [...] MANAGEMENT DEPT TO SEE PATIENT. Behavioral 12/23/2020 [facility] Discussed: Need to reestablish with psychiatric services; contact psychiatric nurse practitioner Esdexterer and inquire if your Medicare is accepted. Patient reports that his Latuda, lithium, Depakote, BuSpar, and trazodone are currently being maintained by [facility] until patient establishes care elsewhere.\T\nbsp;\T\nbsp; E.D. VISIT COUNT (12 MO.) 3 [facility] 22 NANCY Vásquez TOTAL 25 NOTE: Visits indicate total known visits. ED/UCC VISIT TRACKING (12 MO.) 04/29/2021 00:01 [facility] [place] TYPE: Emergency COMPLAINT: - ABD PAIN 04/28/2021 16:[address] [facility] [place] TYPE: Emergency COMPLAINT: - ABDOMINAL PAIN 04/27/2021 22:[address] [facility] [address] [facility] [place] TYPE: Emergency COMPLAINT: - UPPER RT ARM INFECTION 04/15/2021 20:[address] [facility] [place] TYPE: Emergency COMPLAINT: - TONGUE SWELLING, LIGHT HEADED DIAGNOSES: - Allergy status to other drugs, medicaments and biological substances - Personal history of nicotine dependence - Essential (primary) hypertension - Other snf (current) drug therapy - Other psychoactive substance abuse, uncomplicated - Localized swelling, mass and lump, head 04/08/2021 01:[address] [facility] [address] [facility] [place] TYPE: Emergency COMPLAINT: - TOOK UNKNOWN DRUG DIAGNOSES: - Essential (primary) hypertension - Poisoning by other synthetic narcotics, accidental (unintentional), initial encounter - Poisoning by amphetamines, accidental (unintentional), initial encounter - Other emt intermediate (current) drug therapy - Allergy status to other drugs, medicaments and biological substances - Personal history of nicotine dependence - Poisoning by unspecified narcotics, accidental (unintentional), initial encounter 03/26/2021 23:58 [facility] [place] TYPE: Emergency COMPLAINT: - NECK PAIN DIAGNOSES: - Essential (primary) hypertension - Rash and other nonspecific skin eruption - Disorder of the skin and subcutaneous tissue, unspecified - Other emt intermediate (current) drug therapy - Other psychoactive substance abuse, uncomplicated - Personal history of nicotine dependence - Allergy status to other drugs, medicaments and biological substances 03/25/2021 16:[address] [facility] [address] [place] TYPE: Emergency COMPLAINT: - NAUSEA DIAGNOSES: - Essential (primary) hypertension - Other specified disorders of pigmentation - Schizophrenia, unspecified - Personal history of nicotine dependence - Anxiety disorder, unspecified - Other snf (current) drug therapy - Allergy status to other drugs, medicaments and biological substances 03/17/2021 14:06 [facility] [place] TYPE: Emergency DIAGNOSES: - Other complications [...] skin and subcutaneous tissue, unspecified - Other snf (current) drug therapy - Allergy status to other drugs, medicaments and biological substances 03/05/2021 00:24 [facility] [place] TYPE: Emergency COMPLAINT: - INFECTION DIAGNOSES: - Other snf (current) drug therapy - Allergy status to [...] dermatitis due to other agents - Other emt intermediate (current) drug therapy - Essential (primary) hypertension - Personal history of nicotine dependence 02/22/2021 18:26 [facility] [place] TYPE: Emergency COMPLAINT: - SKIN PROBLEM DIAGNOSES: - Other snf (current) drug therapy - Methicillin resistant Staphylococcus aureus infection, unspecified site - Allergy status to other drugs, medicaments and biological substances - Methicillin resistant Staphylococcus aureus infection as the cause of diseases classified elsewhere - Personal history of nicotine dependence - emt intermediate (current) use of oral hypoglycemic drugs - Cutaneous abscess of right hand - Essential (primary) hypertension - Other specified local infections of the skin and subcutaneous tissue 02/17/2021 20:27 [facility] [place] TYPE: Emergency COMPLAINT: - RT ANKLE SKIN PROBLEM DIAGNOSES: - Essential (primary) hypertension - Other specified soft tissue disorders - Other snf (current) drug therapy - Personal history of [...] Staphylococcus aureus infection, unspecified site - Other snf (current) drug therapy - Allergy status to other drugs, medicaments and biological substances - Essential (primary) hypertension 11/19/2020 20:00 [facility] [place] TYPE: Emergency COMPLAINT: - HAND NUMBNESS DIAGNOSES: - Other emt intermediate (current) drug therapy - Allergy status to other drugs, medicaments and biological substances - Essential (primary) hypertension - Paresthesia of skin 11/14/2020 14:17 [facility] [place] TYPE: Emergency COMPLAINT: - RT LEG SKIN ISSUE DIAGNOSES: - Other snf (current) drug therapy - Allergy status to other drugs, medicaments and biological substances - Essential (primary) hypertension - Cellulitis of face 11/08/2020 15:00 [facility] [place] TYPE: Emergency COMPLAINT: - DIFFICULTY BREATHING DIAGNOSES: - Allergy status to other drugs, medicaments and biological substances - Other emt intermediate (current) drug therapy - Unspecified asthma, uncomplicated - Essential (primary) hypertension - Cough 10/30/2020 16:18 [facility] [place] TYPE: Emergency COMPLAINT: - INFECTION IN L FOOT, N/V DIAGNOSES: - Ingrowing nail - Essential (primary) hypertension - Other emt intermediate (current) drug therapy - Allergy status to other drugs, medicaments and biological substances Plus 5 More Visits INPATIENT VISIT TRACKING (12 MO.) 01/30/2021 23:57 [facility] [place] TYPE: Medical Surgical DIAGNOSES: - infection - Cellulitis of unspecified part of limb - Cellulitis of left lower limb [email or web address]
[2021-04-29] MEDS ORDERED: AMOX TR-K CLV1 EAC1 PO ×2 (17:13)
[2021-04-30] MEDS ORDERED: ZYPREXA20 MG PO (22:10)
[2021-05-02] MEDS ORDERED: DISKETS40 MG PO (01:21)
== END 2021-04-29 04:05 | disposition home or self-care (01) ==
LOC: ED 00:01
DX: R10.32 Left lower quadrant pain (principal); F19.10 Other psychoactive substance abuse, uncomplicated; R10.814 Left lower quadrant abdominal tenderness; I10 Essential (primary) hypertension; Z87.01 Personal history of pneumonia (recurrent); Z87.891 Personal history of nicotine dependence; Z88.8 Allergy status to other drugs, medicaments and biological substances
CPT/HCPCS: 80053; 81001; 83690; 85025; 96374; 99284-25; J2405

== ENCOUNTER 2021-04-29 16:43 | Emergency (ER) | payer MEDICARE, OTHER ==
[~2021-04-29] VITALS: Ht 185.4 cm; Wt 93.4 kg
--- OUTSIDE RECORDS SUMMARY | 2021-04-29 16:46 | XMS ---
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 CRITERIA MET - Group Notification - PDMP - [facility] - 2 Visits in 30 Days - 6 ED Visits in 6 Months - [facility] - Has Care Guidelines CARE PROVIDERS BRENNA REYES Nurse Practitioner: 02/23/2021-Current PHONE: [phone] Savage Barragan [facility] 04/15/2018-Current PHONE: [phone] Care Guidelines exist for the following facilities: [facility] ( 08/01/2020 ) Care History Medical/Surgical 12/23/2020 [facility] PLEASE CONTACT WENDY - IF PATIENT IS WILLING TO TALK ABOUT RESOURCES AND OR HELP IN REGARDS TO SUBSTANCE USE. \T\nbsp;\T\nbsp;\T\nbsp;\T\nbsp;\T\nbsp;\T\ nbsp;\T\nbsp;\T\nbsp;\T\nbsp;\T\nbsp;\T\nbsp;\T\nbsp;\T\nbsp;\T\nbsp;\T\nbsp;\ T\nbsp;\T\nbsp;\T\nbsp;\T\nbsp;\T\nbsp;\T\nbsp;\T\nbsp;\T\nbsp;\T\nbsp;\T\nbsp; \T\nbsp;\T\nbsp;\T\nbsp;\T\nbsp;\T\nbsp;\T\nbsp;\T\nbsp;\T\nbsp;\T\nbsp;\T\ nbsp;\T\nbsp;\T\nbsp; WENDY CONTACT NUMBER: [phone] 11/21/2020 [facility] - CHW CALLED PATIENT- DID NOT ANSWER PHONE-UNABLE TO LEAVE A MESSAGE-VOICEMAIL NOT SET UP. 11/16/2020 [facility] - CHW RECEIVED CASE MGMNT CONSULT [...] DEPT TO SEE PATIENT. Behavioral 12/23/2020 [facility] Discussed: Need to reestablish with psychiatric services; contact psychiatric nurse practitioner Eslinger and inquire if your Medicare is accepted. Patient reports that his Latuda, lithium, Depakote, BuSpar, and trazodone are currently being maintained by [facility] until patient establishes care elsewhere.\T\nbsp;\T\nbsp; E.D. VISIT COUNT (12 MO.) 3 [facility] 23 NANCY Vásquez TOTAL 26 NOTE: Visits indicate total known visits. ED/UCC VISIT TRACKING (12 MO.) 04/29/2021 16:44 [facility] [place] TYPE: Emergency COMPLAINT: - MEDICAL CLEARANCE 04/29/2021 00:01 [facility] Gu[facility] [place] TYPE: Emergency COMPLAINT: - ABD PAIN 04/28/2021 16:[address] [facility] [address] [facility] [place] TYPE: Emergency COMPLAINT: - ABDOMINAL PAIN 04/27/2021 22:[address] [facility] [address] [facility] [place] TYPE: Emergency COMPLAINT: - UPPER RT ARM INFECTION 04/15/2021 20:[address] [facility] [address] [facility] [place] TYPE: Emergency COMPLAINT: - TONGUE SWELLING, LIGHT HEADED DIAGNOSES: - Allergy status to other drugs, medicaments and biological substances - Personal history of nicotine dependence - Essential (primary) hypertension - Other prison (current) drug therapy - Other psychoactive substance abuse, uncomplicated - Localized swelling, mass and lump, head 04/08/2021 01:45 [facility] [place] TYPE: Emergency COMPLAINT: - TOOK UNKNOWN DRUG DIAGNOSES: - Essential (primary) hypertension - Poisoning by other synthetic narcotics, accidental (unintentional), initial encounter - Poisoning by amphetamines, accidental (unintentional), initial encounter - Other prison (current) drug therapy - Allergy status to other drugs, medicaments and biological substances - Personal history of nicotine dependence - Poisoning by unspecified narcotics, accidental (unintentional), initial encounter 03/26/2021 23:58 [facility] [place] TYPE: Emergency COMPLAINT: - NECK PAIN DIAGNOSES: - Essential (primary) hypertension - Rash and other nonspecific skin eruption - Disorder of the skin and subcutaneous tissue, unspecified - Other prison (current) drug therapy - Other psychoactive substance abuse, uncomplicated - Personal history of nicotine dependence - Allergy status to other drugs, medicaments and biological substances 03/25/2021 16:10 [facility] [place] TYPE: Emergency COMPLAINT: - NAUSEA DIAGNOSES: - Essential (primary) hypertension - Other specified disorders of pigmentation - Schizophrenia, unspecified - Personal history of nicotine dependence - Anxiety disorder, unspecified - Other prison (current) drug therapy - Allergy status to other drugs, medicaments and biological substances 03/17/2021 14:06 [facility] [place] TYPE: Emergency DIAGNOSES: - Other complications [...] skin and subcutaneous tissue, unspecified - Other prison (current) drug therapy - Allergy status to other drugs, medicaments and biological substances 03/05/2021 00:24 [facility] [place] TYPE: Emergency COMPLAINT: - INFECTION DIAGNOSES: - Other filler leaf cutter long (current) drug therapy - Allergy status to other drugs, medicaments and biological substances - Essential (primary) hypertension - Personal history of nicotine dependence - Other specified local infections of the skin and subcutaneous tissue - Local infection of the skin and subcutaneous tissue, unspecified 03[facility]01[facility]2021 06:40 [facility] [place] [facility] COMPLAINT: - SWELLING, PUS, PAIN, NOT FEELING WELL IN GENERAL DIAGNOSES: - Methicillin resistant Staphylococcus aureus infection as the cause of diseases classified elsewhere - Allergy status to other drugs, medicaments and biological substances - Unspecified contact dermatitis due to other agents - Other prison (current) drug therapy - Essential (primary) hypertension - Personal history of nicotine dependence 02/22/2021 18:[address] [facility] [address] [facility] [place] TYPE: Emergency COMPLAINT: - SKIN PROBLEM DIAGNOSES: - Other filler leaf cutter long (current) drug therapy - Methicillin resistant Staphylococcus aureus infection, unspecified site - Allergy status to other drugs, medicaments and biological substances - Methicillin resistant Staphylococcus aureus infection as the cause of diseases classified elsewhere - Personal history of nicotine dependence - extermination supervisor (current) use of oral hypoglycemic drugs - Cutaneous abscess of right hand - Essential (primary) hypertension - Other specified local infections of the skin and subcutaneous tissue 02/17/2021 20:27 [facility] [place] TYPE: Emergency COMPLAINT: - RT ANKLE SKIN PROBLEM DIAGNOSES: - Essential (primary) hypertension - Other specified soft tissue disorders - Other filler leaf cutter long (current) drug therapy - Personal history of nicotine dependence - Allergy status to other drugs, medicaments and biological substances - Encounter for immunization 01/29/2021 23:57 [facility] [place] TYPE: Emergency COMPLAINT: - infection DIAGNOSES: - infection 01/28/2021 14:25 [facility] [place] TYPE: Emergency DIAGNOSES: - Cellulitis of right upper limb - INFECTION IN HANDS AND ANKLE - Cellulitis of left upper limb - Cellulitis of left lower limb 12/22/2020 14:32 [facility] [place] TYPE: Emergency COMPLAINT: - SORES ON ARMS DIAGNOSES: - Methicillin resistant Staphylococcus aureus infection, unspecified site - Other prison (current) drug therapy - Allergy status to other drugs, medicaments and biological substances - Essential (primary) hypertension 11/19/2020 20:00 [facility] [place] TYPE: Emergency COMPLAINT: - HAND NUMBNESS DIAGNOSES: - Other prison (current) drug therapy - Allergy status to other drugs, medicaments and biological substances - Essential (primary) hypertension - Paresthesia of skin 11/14/2020 14:17 [facility] [place] TYPE: Emergency COMPLAINT: - RT LEG SKIN ISSUE DIAGNOSES: - Other filler leaf cutter long (current) drug therapy - Allergy status to other drugs, medicaments and biological substances - Essential (primary) hypertension - Cellulitis of face 11/08/2020 15:00 [facility] [place] TYPE: Emergency COMPLAINT: - DIFFICULTY BREATHING DIAGNOSES: - Allergy status to other drugs, medicaments and biological substances - Other prison (current) drug therapy - Unspecified asthma, uncomplicated - Essential (primary) hypertension - Cough Plus 6 More Visits INPATIENT VISIT TRACKING (12 MO.) 01/30/2021 23:57 [facility] [place] TYPE: Medical Surgical DIAGNOSES: - infection - Cellulitis of unspecified part of limb - Cellulitis of left lower limb [email or web address]
[2021-04-29] MEDS ORDERED: AMOX TR-K CLV1 EAC1 PO ×2 (17:13)
--- NOTE | 2021-04-30 08:06 | EKG ---
[facility] [address] [place] [address] Signed Normal sinus rhythm Normal ECG When compared with ECG of 01-JUN-2020 07:32, Vent. rate has increased BY 31 BPM Confirmed by TIFFANY JACK MD ([id number]) on 04/30/2021 8:05:47 AM Electronically Signed By: TIFFANY JACK MD 04/30/21 0806 PATIENT NAME: RADHA GOOD Electrocardiogram DATE OF : 83 PHYSICIAN: TIFFANY JACK MD REPORT #: [id number] REPORT IS CONFIDENTIAL AND NOT TO BE RELEASED WITHOUT AUTHORIZATION
[2021-04-30] MEDS ORDERED: ZYPREXA20 MG PO (22:10)
[2021-05-02] MEDS ORDERED: DISKETS40 MG PO (01:21)
== END 2021-04-30 22:30 | disposition home or self-care (01) ==
LOC: ED 16:43
DX: F22 Delusional disorders (principal); F11.23 Opioid dependence with withdrawal; R10.9 Unspecified abdominal pain; I10 Essential (primary) hypertension; Z87.891 Personal history of nicotine dependence; Z88.8 Allergy status to other drugs, medicaments and biological substances; Z79.899 Other long term (current) drug therapy; Z20.822 Contact with and (suspected) exposure to COVID-19
CPT/HCPCS: 80053; 81001; 84443; 85025; 93005; 93010; 99285-25; A9270; A9270-GY; C9803; G0480; Q0163; U0003

== ENCOUNTER 2022-03-19 13:55 | Emergency (ER) | payer MEDICARE, OTHER ==
[~2022-03-19] VITALS: Ht 185.4 cm; Wt 95.2 kg
[~2022-03-19 13:55] MED LIST changes: +CEPHALEXIN500 M1 PO; +DISKETS40 MG PO
--- OUTSIDE RECORDS SUMMARY | 2022-03-19 13:58 | XMS ---
PreManage Notification: RADHA GOOD Security Prepress Supervisor Events 3 event(s) in the past 18 months Most recent security events: Elopement at [facility] 12/25/2021 15:28 - Patient eloped before treatment completed. - Patient with suicidal and/or homicidal ideations eloped. - Patient eloped with IV in place. Details: PATIENT LWBS Elopement at [facility] 12/18/2021 16:57 - Patient eloped before treatment completed. - Patient with suicidal and/or homicidal ideations eloped. - Patient eloped with IV in place. Details: PATIENT LWBS Elopement at [facility] 05/02/2021 00:45 - Other Details: PATIENT LEFT AMA CRITERIA MET - Group Notification - [facility] - Has Care Guidelines - 6 [facility] Months [facility] BRENNA REYES Nurse Practitioner: Family 02/23/2021-Current PHONE: [phone] Savage Barragan [facility] 04/15/2018-Current PHONE: [phone] Kyree Slade Community Health Worker 03/01/2022-Current PHONE: [phone] Care Guidelines exist for the following facilities: [facility] ( 08/01/2020 ) Care History Behavioral 12/23/2020 [facility] Discussed: Need to reestablish with psychiatric services; contact psychiatric nurse practitioner Ida and inquire if your Medicare is accepted. Patient reports that his Latuda, lithium, Depakote, BuSpar, and trazodone are currently being maintained by [facility] until patient establishes care elsewhere.\T\nbsp;\T\nbsp; Medical/Surgical 05/02/2021 [facility] - CHW CONTACTED WENDY- SPOKE WITH KRISHAN-THEY HAVE HELPED PATIENT ESTABLISH WITH THE [facility] OF 05/01/21. - WENDY WILL CONTACT PATIENT AND SEE IF THEY CAN BE OF FURTHER ASSISTANCE. 12/23/2020 [facility] PLEASE CONTACT WENDY - IF PATIENT IS WILLING TO TALK ABOUT RESOURCES AND OR HELP IN REGARDS TO SUBSTANCE USE. \T\nbsp;\T\nbsp;\T\nbsp;\T\nbsp;\T\nbsp;\T\ nbsp;\T\nbsp;\T\nbsp;\T\nbsp;\T\nbsp;\T\nbsp;\T\nbsp;\T\nbsp;\T\nbsp;\T\nbsp;\ T\nbsp;\T\nbsp;\T\nbsp;\T\nbsp;\T\nbsp;\T\nbsp;\T\nbsp;\T\nbsp;\T\nbsp;\T\nbsp; \T\nbsp;\T\nbsp;\T\nbsp;\T\nbsp;\T\nbsp;\T\nbsp;\T\nbsp;\T\nbsp;\T\nbsp;\T\ nbsp;\T\nbsp;\T\nbsp; WENDY CONTACT NUMBER: [phone] 11/21/2020 [facility] - CHW CALLED PATIENT- DID NOT ANSWER PHONE-UNABLE TO LEAVE A MESSAGE-VOICEMAIL NOT SET UP. E.D. VISIT COUNT (12 MO.) 2 [facility] H. 4 [facility] 1 [facility]. TOTAL 21 NOTE: Visits indicate total known visits. ED/UCC VISIT TRACKING (12 MO.) 03/19/2022 13:56 [facility] [place] TYPE: Emergency COMPLAINT: - R ARM INJURY, R FOOT BLISTERS 02/08/2022 11:19 [facility] [place] TYPE: Emergency COMPLAINT: - CHILLS,SWEATS 02/03/2022 22:22 [facility] [place] TYPE: Emergency DIAGNOSES: - Cellulitis, unspecified - Unspecified multiple injuries, initial encounter - Opioid dependence with unspecified opioid-induced disorder - back infection 02/03/2022 08:03 [facility] [place] TYPE: Emergency COMPLAINT: - SKIN PROBLEM DIAGNOSES: - Homelessness unspecified - Allergy status to other drugs, medicaments and biological substances - Personal history of nicotine dependence - Other buttermaker (current) drug therapy - Essential (primary) hypertension - Cutaneous abscess, unspecified 02/02/2022 00:31 [facility] [place] TYPE: Emergency DIAGNOSES: - MRSA - Excoriation (skin-picking) disorder 01/26/2022 02:16 [facility] [place] TYPE: Emergency DIAGNOSES: - MRSA - Cellulitis, unspecified - Personal history of Methicillin resistant Staphylococcus aureus infection 01/20/2022 14:14 [facility] [place] TYPE: Emergency DIAGNOSES: - Cellulitis of face - POSSIBLE MRSA RIGHT SIDE FACE 12/25/2021 15:28 [facility] [place] TYPE: Emergency COMPLAINT: - SKIN PROBLEM 12/18/2021 [facility] COMPLAINT: - SKIN PROBLEM 08/13/2021 05:14 [facility] TYPE: Emergency COMPLAINT: - Recurrent Skin Infections DIAGNOSES: - Recurrent Skin Infections - Cellulitis, unspecified 07/10/2021 15:58 [facility] TYPE: Emergency COMPLAINT: - Medication Refill DIAGNOSES: - Encounter for issue of repeat prescription - Medication Refill 06/04/2021 19:38 [facility] [place] TYPE: Emergency DIAGNOSES: - Skin Problem - Cough, unspecified - Cellulitis, unspecified - Suspected Infection - Methicillin resistant Staphylococcus aureus infection as the cause of diseases classified elsewhere 05/02/2021 00:45 [facility] [place] TYPE: Emergency COMPLAINT: - LOWER BACK PAIN,RT THIGH PAIN 04/29/2021 16:44 [facility] [place] TYPE: Emergency COMPLAINT: - MEDICAL CLEARANCE DIAGNOSES: - Unspecified abdominal pain - Allergy status to other drugs, medicaments and biological substances - Schizoaffective disorder, bipolar type - Other detention (current) drug therapy - Opioid dependence with withdrawal - Essential (primary) hypertension - Delusional disorders - Personal history of nicotine dependence 04/29/2021 00:01 [facility] [place] TYPE: Emergency COMPLAINT: - ABD PAIN DIAGNOSES: - Personal history of nicotine dependence - Personal history of pneumonia (recurrent) - Left lower quadrant pain - Other psychoactive substance abuse, uncomplicated - Essential (primary) hypertension - Left lower quadrant abdominal tenderness - Allergy status to other drugs, medicaments and biological substances 04/28/2021 16:47 [facility] [place] TYPE: Emergency COMPLAINT: - ABDOMINAL PAIN DIAGNOSES: - Cellulitis of right lower limb - Other buttermaker (current) drug therapy - Cellulitis of right upper limb - Essential (primary) hypertension - Allergy status to other drugs, medicaments and biological substances - Personal history of nicotine dependence 04/27/2021 22:55 [facility] [place] TYPE: Emergency COMPLAINT: - UPPER RT ARM INFECTION DIAGNOSES: - Allergy status to other drugs, medicaments and biological substances - Disorder of the skin and subcutaneous tissue, unspecified - Exposure to other specified factors, initial encounter - Essential (primary) hypertension - Unspecified open wound of right upper arm, initial encounter - Other buttermaker (current) drug therapy - Personal history of nicotine dependence - Unspecified open wound of right upper arm, initial encounter - HOMELESSNESS UNSPECIFIED - Local infection of the skin and subcutaneous tissue, unspecified 04/15/2021 20:58 [facility] [place] TYPE: Emergency COMPLAINT: - TONGUE SWELLING, LIGHT HEADED DIAGNOSES: - Localized swelling, mass and lump, head - Other detention (current) drug therapy - Personal history of nicotine dependence - Other psychoactive substance abuse, uncomplicated - Essential (primary) hypertension - Allergy status to other drugs, medicaments and biological substances 04/08/2021 01:45 [facility] [place] TYPE: Emergency COMPLAINT: - TOOK UNKNOWN DRUG DIAGNOSES: - Personal history of nicotine dependence - Other detention (current) drug therapy - Poisoning by other synthetic narcotics, accidental (unintentional), initial encounter - Poisoning by unspecified narcotics, accidental (unintentional), initial encounter - Allergy status to other drugs, medicaments and biological substances - Poisoning by amphetamines, accidental (unintentional), initial encounter - Essential (primary) hypertension 03/26/2021 23:58 [facility] [place] TYPE: Emergency COMPLAINT: - NECK PAIN DIAGNOSES: - Personal history of nicotine dependence - Other detention (current) drug therapy - Rash and other nonspecific skin eruption - Allergy status to other drugs, medicaments and biological substances - Other psychoactive substance abuse, uncomplicated - Disorder of the skin and subcutaneous tissue, unspecified - Essential (primary) hypertension Plus 1 More Visit INPATIENT VISIT TRACKING (12 MO.) No inpatient visits to display in this time frame [email or web address]
== END 2022-03-19 15:26 | disposition home or self-care (01) ==
LOC: ED 13:55
DX: S40.812A Abrasion of left upper arm, initial encounter (principal); S40.811A Abrasion of right upper arm, initial encounter; S00.81XA Abrasion of other part of head, initial encounter; S80.812A Abrasion, left lower leg, initial encounter; S80.811A Abrasion, right lower leg, initial encounter; F15.10 Other stimulant abuse, uncomplicated; W20.8XXA Other cause of strike by thrown, projected or falling object, initial encounter; I10 Essential (primary) hypertension; Z87.891 Personal history of nicotine dependence; Z88.8 Allergy status to other drugs, medicaments and biological substances; Z79.899 Other long term (current) drug therapy
CPT/HCPCS: 99283

== ENCOUNTER 2022-03-26 19:13 | Emergency (ER) | payer MEDICARE, OTHER ==
[~2022-03-26] VITALS: Ht 185.4 cm; Wt 98.0 kg
--- OUTSIDE RECORDS SUMMARY | 2022-03-26 19:16 | XMS ---
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 - Patient with suicidal and/or homicidal ideations eloped. - Patient eloped with IV in place. Details: PATIENT LWBS Elopement at [facility] 12/18/2021 16:57 - Patient eloped before treatment completed. - Patient with suicidal and/or homicidal ideations eloped. - Patient eloped with IV in place. Details: PATIENT LWBS Elopement at [facility] 05/02/2021 00:45 - Other Details: PATIENT LEFT AMA CRITERIA MET - 6 ED Visits in 6 Months - Group Notification - [facility] - Has Care Guidelines - PDMP - [facility] - 2 Visits in 30 Days CARE PROVIDERS BRENNA REYES Nurse Practitioner: Family 02/23/2021-Current PHONE: [phone] Savage Barragan [facility] 04/15/2018-Current PHONE: [phone] Kyree Slade Community Health Worker 03/01/2022-Current PHONE: [phone] Care Guidelines exist for the following facilities: [facility] [place] ( 08/01/2020 ) Care History Medical/Surgical 05/02/2021 [facility] - W CONTACTED WENDY- SPOKE WITH KRISHAN-THEY HAVE HELPED PATIENT ESTABLISH WITH THE [facility] OF 05/01/21. - WENDY WILL CONTACT PATIENT AND SEE IF THEY CAN BE OF FURTHER ASSISTANCE. 12/23/2020 [facility] PLEASE CONTACT WENDY - IF PATIENT IS WILLING TO TALK ABOUT RESOURCES AND OR HELP IN REGARDS TO SUBSTANCE USE. \T\nbsp;\T\nbsp;\T\nbsp;\T\nbsp;\T\nbsp;\T\ nbsp;\T\nbsp;\T\nbsp;\T\nbsp;\T\nbsp;\T\nbsp;\T\nbsp;\T\nbsp;\T\nbsp;\T\nbsp;\ T\nbsp;\T\nbsp;\T\nbsp;\T\nbsp;\T\nbsp;\T\nbsp;\T\nbsp;\T\nbsp;\T\nbsp;\T\nbsp; \T\nbsp;\T\nbsp;\T\nbsp;\T\nbsp;\T\nbsp;\T\nbsp;\T\nbsp;\T\nbsp;\T\nbsp;\T\ nbsp;\T\nbsp;\T\nbsp; WENDY CONTACT NUMBER: [phone] 11/21/2020 [facility] - CHW CALLED PATIENT- DID NOT ANSWER PHONE-UNABLE TO LEAVE A MESSAGE-VOICEMAIL NOT SET UP. Behavioral 12/23/2020 [facility] Discussed: Need to reestablish with psychiatric services; contact psychiatric nurse practitioner Ida and inquire if your Medicare is accepted. Patient reports that his Latuda, lithium, Depakote, BuSpar, and trazodone are currently being maintained by [facility] until patient establishes care elsewhere.\T\nbsp;\T\nbsp; E.D. VISIT COUNT (12 MO.) 2 [facility]. 4 [facility] 1 [facility] H. 14 [facility]. TOTAL 21 NOTE: Visits indicate total known visits. ED/UCC VISIT TRACKING (12 MO.) 03/26/2022 19:14 [facility] [place] TYPE: Emergency COMPLAINT: - SKIN PROBLEM 03/19/2022 13:56 [facility] [place] TYPE: Emergency COMPLAINT: - R ARM INJURY, R FOOT BLISTERS 02/08/2022 11:19 [facility] [place] TYPE: Emergency COMPLAINT: - CHILLS,SWEATS 02/03/2022 22:22 [facility] [place] TYPE: Emergency DIAGNOSES: - Opioid dependence with unspecified opioid-induced disorder - back infection - Cellulitis, unspecified - Unspecified multiple injuries, initial encounter 02/03/2022 08:03 [facility] [place] TYPE: Emergency COMPLAINT: - SKIN PROBLEM DIAGNOSES: - Other fpc (current) drug therapy - Essential (primary) hypertension - Cutaneous abscess, unspecified - Homelessness unspecified - Allergy status to other drugs, medicaments and biological substances - Personal history of nicotine dependence 02/02/2022 00:31 [employer] [place] TYPE: Emergency DIAGNOSES: - Excoriation (skin-picking) disorder - MRSA 01/26/2022 02:16 [facility] DIAGNOSES: - Cellulitis, unspecified - Personal history of Methicillin resistant Staphylococcus aureus infection - MRSA 01/20/2022 14:14 [place] [employer] [place] TYPE: Emergency DIAGNOSES: - POSSIBLE MRSA RIGHT SIDE FACE - Cellulitis of face 12/25/2021 15:28 [facility] [place] TYPE: Emergency COMPLAINT: - SKIN PROBLEM 12/18/2021 16:57 [facility] [place] TYPE: Emergency COMPLAINT: - SKIN PROBLEM 08/13[facility]2021 [facility] COMPLAINT: - Recurrent Skin Infections DIAGNOSES: - Cellulitis, unspecified - Recurrent Skin Infections 07/10/2021 15:58 [facility] COMPLAINT: - Medication Refill DIAGNOSES: - Medication Refill - Encounter for issue of repeat prescription 06/04/2021 19:38 [facility] [place] TYPE: Emergency DIAGNOSES: - Cellulitis, unspecified - Suspected Infection - Methicillin resistant Staphylococcus aureus infection as the cause of diseases classified elsewhere - Skin Problem - Cough, unspecified 05/02/2021 00:45 [facility] [place] TYPE: Emergency COMPLAINT: - LOWER BACK PAIN,RT THIGH PAIN 04/29/2021 16:44 [facility] [place] TYPE: Emergency COMPLAINT: - MEDICAL CLEARANCE DIAGNOSES: - Other fpc (current) drug therapy - Opioid dependence with withdrawal - Essential (primary) hypertension - Delusional disorders - Personal history of nicotine dependence - Unspecified abdominal pain - Allergy status to other drugs, medicaments and biological substances - Schizoaffective disorder, bipolar type 04/29/2021 00:01 [facility] [place] TYPE: Emergency COMPLAINT: - ABD PAIN DIAGNOSES: - Other psychoactive substance abuse, uncomplicated - Essential (primary) hypertension - Left lower quadrant abdominal tenderness - Allergy status to other drugs, medicaments and biological substances - Personal history of nicotine dependence - Personal history of pneumonia (recurrent) - Left lower quadrant pain 04/28/2021 16:47 [facility] [place] TYPE: Emergency COMPLAINT: - ABDOMINAL PAIN DIAGNOSES: - Essential (primary) hypertension - Allergy status to other drugs, medicaments and biological substances - Personal history of nicotine dependence - Cellulitis of right lower limb - Other terminal make up operator (current) drug therapy - Cellulitis of right upper limb 04/27/2021 22:55 [facility] [place] TYPE: Emergency COMPLAINT: - UPPER RT ARM INFECTION DIAGNOSES: - Unspecified open wound of right upper arm, initial encounter - Other fpc (current) drug therapy - Personal history of nicotine dependence - Unspecified open wound of right upper arm, initial encounter - HOMELESSNESS UNSPECIFIED - Local infection of the skin and subcutaneous tissue, unspecified - Allergy status to other drugs, medicaments and biological substances - Disorder of the skin and subcutaneous tissue, unspecified - Exposure to other specified factors, initial encounter - Essential (primary) hypertension 04/15/2021 20:58 [facility] [place] TYPE: Emergency COMPLAINT: - TONGUE SWELLING, LIGHT HEADED DIAGNOSES: - Other psychoactive substance abuse, uncomplicated - Essential (primary) hypertension - Allergy status to other drugs, medicaments and biological substances - Localized swelling, mass and lump, head - Other fpc (current) drug therapy - Personal history of nicotine dependence 04/08/2021 01:45 [facility] [place] TYPE: Emergency COMPLAINT: - TOOK UNKNOWN DRUG DIAGNOSES: - Poisoning by unspecified narcotics, accidental (unintentional), initial encounter - Allergy status to other drugs, medicaments and biological substances - Poisoning by amphetamines, accidental (unintentional), initial encounter - Essential (primary) hypertension - Personal history of nicotine dependence - Other terminal make up operator (current) drug therapy - Poisoning by other synthetic narcotics, accidental (unintentional), initial encounter Plus 1 More Visit INPATIENT VISIT TRACKING ( MO.) No inpatient visits to display in this time frame [email or web address]
[2022-03-26] MEDS ORDERED: DOXYCYCLINE HY100 MG PO (20:33)
== END 2022-03-26 20:44 | disposition home or self-care (01) ==
LOC: ED 19:13
DX: L02.211 Cutaneous abscess of abdominal wall (principal); I10 Essential (primary) hypertension; Z87.891 Personal history of nicotine dependence; Z88.8 Allergy status to other drugs, medicaments and biological substances
CPT/HCPCS: 99283; A9270

== ENCOUNTER 2022-04-03 19:41 | Emergency (ER) | payer MEDICARE, OTHER ==
[~2022-04-03] VITALS: Ht 185.4 cm; Wt 99.0 kg
--- OUTSIDE RECORDS SUMMARY | 2022-04-03 19:42 | XMS ---
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 - Patient with suicidal and/or homicidal ideations eloped. - Patient eloped with IV in place. Details: PATIENT LWBS Elopement at [facility] 12/18/2021 16:57 - Patient eloped before treatment completed. - Patient with suicidal and/or homicidal ideations eloped. - Patient eloped with IV in place. Details: PATIENT LWBS Elopement at [facility] 05/02/2021 00:45 - Other Details: PATIENT LEFT AMA CRITERIA MET - 6 ED Visits in 6 Months - [facility] - Has Care Guidelines - Group Notification - [facility] - 2 Visits in 30 Days CARE PROVIDERS BRENNA REYES Nurse Practitioner: Family 02/23/2021-Current PHONE: [phone] Savage Barragan [facility] 04/15/2018-Current PHONE: [phone] [place] Kyree Community Health Worker 03/01/2022-Current PHONE: [phone] Care Guidelines exist for the following facilities: [facility] ( 08/01/2020 ) Care History Medical/Surgical 05/02/2021 [facility] - W CONTACTED WENDY- SPOKE WITH KRISHAN-THEY HAVE HELPED PATIENT ESTABLISH WITH THE [facility] OF 05/01/21. - WENDY WILL CONTACT PATIENT AND SEE IF THEY CAN BE OF FURTHER ASSISTANCE. 12/23/2020 [facility] PLEASE CONTACT WENDY - IF PATIENT IS WILLING TO TALK ABOUT RESOURCES AND OR HELP IN REGARDS TO SUBSTANCE USE. \T\nbsp;\T\nbsp;\T\nbsp;\T\nbsp;\T\nbsp;\T\ nbsp;\T\nbsp;\T\nbsp;\T\nbsp;\T\nbsp;\T\nbsp;\T\nbsp;\T\nbsp;\T\nbsp;\T\nbsp;\ T\nbsp;\T\nbsp;\T\nbsp;\T\nbsp;\T\nbsp;\T\nbsp;\T\nbsp;\T\nbsp;\T\nbsp;\T\nbsp; \T\nbsp;\T\nbsp;\T\nbsp;\T\nbsp;\T\nbsp;\T\nbsp;\T\nbsp;\T\nbsp;\T\nbsp;\T\ nbsp;\T\nbsp;\T\nbsp; WENDY CONTACT NUMBER: [phone] 11/21/2020 [facility] - CHW CALLED PATIENT- DID NOT ANSWER PHONE-UNABLE TO LEAVE A MESSAGE-VOICEMAIL NOT SET UP. Behavioral 12/23/2020 [facility] Discussed: Need to reestablish with psychiatric services; contact psychiatric nurse practitioner Ida and inquire if your Medicare is accepted. Patient reports that his Latuda, lithium, Depakote, BuSpar, and trazodone are currently being maintained by [facility] until patient establishes care elsewhere.\T\nbsp;\T\nbsp; E.D. VISIT COUNT (12 MO.) 2 [facility]. 4 [facility] 1 [facility]. 14 [facility]. TOTAL 21 NOTE: Visits indicate total known visits. ED/UCC VISIT TRACKING (12 MO.) 04/03/2022 19:41 [facility] [place] TYPE: Emergency COMPLAINT: - SKIN PROBLEM 03/26/2022 19:14 [facility] [place] TYPE: Emergency COMPLAINT: - SKIN PROBLEM 03/19/2022 13:56 [facility] [place] TYPE: Emergency COMPLAINT: - R ARM INJURY, R FOOT BLISTERS 02/08/2022 11:19 [facility] [place] TYPE: Emergency COMPLAINT: - CHILLS,SWEATS 02/03/2022 22:22 [facility] [place] TYPE: Emergency DIAGNOSES: - Opioid dependence with unspecified opioid-induced disorder - back infection - Cellulitis, unspecified - Unspecified multiple injuries, initial encounter 02/03/2022 08:03 [facility] [place] TYPE: Emergency COMPLAINT: - SKIN PROBLEM DIAGNOSES: - Other nursing home (current) drug therapy - Essential (primary) hypertension - Cutaneous abscess, unspecified - Homelessness unspecified - Allergy status to other drugs, medicaments and biological substances - Personal history of nicotine dependence 02/02/2022 00:31 [facility] [place] TYPE: Emergency DIAGNOSES: - Excoriation (skin-picking) disorder - MRSA 01/26/2022 02:16 [email or web address] [facility] [place] TYPE: Emergency DIAGNOSES: - Cellulitis, unspecified - Personal history of Methicillin resistant Staphylococcus aureus infection - MRSA 01/20/2022 14:14 [facility] [place] TYPE: Emergency DIAGNOSES: - POSSIBLE MRSA RIGHT SIDE FACE - Cellulitis of face 12/25/2021 15:28 [facility] [place] TYPE: Emergency COMPLAINT: - SKIN PROBLEM 12/18/2021 16:57 [facility] [place] TYPE: Emergency COMPLAINT: - SKIN PROBLEM [facility]13[facility]21 [facility] COM[facility]: - Recurrent Skin Infections DIAGNOSES: - Cellulitis, unspecified - Recurrent Skin Infections 07/10/2021 15:[address] [facility] [place] [facility] TYPE: Emergency COMPLAINT: - Medication Refill DIAGNOSES: - Medication Refill - Encounter for issue of repeat prescription 06/04/2021 19:38 [facility] [place] TYPE: Emergency DIAGNOSES: - Cellulitis, unspecified - Suspected Infection - Methicillin resistant Staphylococcus aureus infection as the cause of diseases classified elsewhere - Skin Problem - Cough, unspecified 05/02/2021 00:45 [facility] [place] TYPE: Emergency COMPLAINT: - LOWER BACK PAIN,RT THIGH PAIN 04/29/2021 16:44 [facility] [place] TYPE: Emergency COMPLAINT: - MEDICAL CLEARANCE DIAGNOSES: - Opioid dependence with withdrawal - Essential (primary) hypertension - Delusional disorders - Personal history of nicotine dependence - Unspecified abdominal pain - Allergy status to other drugs, medicaments and biological substances - Schizoaffective disorder, bipolar type - Other nursing home (current) drug therapy 04/29/2021 00:01 [facility] [place] TYPE: Emergency COMPLAINT: - ABD PAIN DIAGNOSES: - Essential (primary) hypertension - Left lower quadrant abdominal tenderness - Allergy status to other drugs, medicaments and biological substances - Personal history of nicotine dependence - Personal history of pneumonia (recurrent) - Left lower quadrant pain - Other psychoactive substance abuse, uncomplicated 04/28/2021 16:47 [facility] [place] TYPE: Emergency COMPLAINT: - ABDOMINAL PAIN DIAGNOSES: - Essential (primary) hypertension - Allergy status to other drugs, medicaments and biological substances - Personal history of nicotine dependence - Cellulitis of right lower limb - Other nursing home (current) drug therapy - Cellulitis of right upper limb 04/27/2021 22:55 [facility] [place] TYPE: Emergency COMPLAINT: - UPPER RT ARM INFECTION DIAGNOSES: - Other nursing home (current) drug therapy - Personal history of [...] wound of right upper arm, initial encounter 04/15/2021 20:[address] [facility] [place] TYPE: Emergency COMPLAINT: - TONGUE SWELLING, LIGHT HEADED DIAGNOSES: - Other psychoactive substance abuse, uncomplicated - Essential (primary) hypertension - Allergy status to other drugs, medicaments and biological substances - Localized swelling, mass and lump, head - Other manufacturing controller (current) drug therapy - Personal history of nicotine dependence Plus 1 More Visit INPATIENT VISIT TRACKING (12 MO.) No inpatient visits to display in this time frame [email or web address]
== END 2022-04-03 20:14 | disposition home or self-care (01) ==
LOC: ED 19:41
DX: L84 Corns and callosities (principal); T33.522A Superficial frostbite of left hand, initial encounter; T33.521A Superficial frostbite of right hand, initial encounter; T33.822A Superficial frostbite of left foot, initial encounter; T33.821A Superficial frostbite of right foot, initial encounter; X31.XXXA Exposure to excessive natural cold, initial encounter; I10 Essential (primary) hypertension; Z87.891 Personal history of nicotine dependence; Z88.8 Allergy status to other drugs, medicaments and biological substances; Z79.899 Other long term (current) drug therapy

== ENCOUNTER 2022-04-19 20:04 | Emergency (ER) | payer MEDICARE, OTHER ==
[~2022-04-19] VITALS: Ht 185.4 cm; Wt 90.7 kg
--- OUTSIDE RECORDS SUMMARY | 2022-04-19 20:06 | XMS ---
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 - Patient with suicidal and/or homicidal ideations eloped. - Patient eloped with IV in place. Details: PATIENT LWBS Elopement at [facility] 12/18/2021 16:57 - Patient eloped before treatment completed. - Patient with suicidal and/or homicidal ideations eloped. - Patient eloped with IV in place. Details: PATIENT LWBS Elopement at [facility] 05/02/2021 00:45 - Other Details: PATIENT LEFT AMA CRITERIA MET - [facility] - 2 Visits in 30 Days - [facility] - Has Care Guidelines - 6 ED Visits in 6 Months - Group Notification CARE PROVIDERS BRENNA REYES Nurse Practitioner: Family 02/23/2021-Current PHONE: [phone] Savage Barragan [facility] 04/15/2018-Current PHONE: [phone] [place] Kyree Community Health Worker 03/01/2022-Current PHONE: [phone] Care Guidelines exist for the following facilities: [facility] ( 08/01/2020 ) Care History Medical/Surgical 05/02/2021 [facility] - W CONTACTED WENDY- SPOKE WITH KRISHAN-THEY HAVE HELPED PATIENT ESTABLISH WITH THE [facility] OF 05/01/21. - WENDY WILL CONTACT PATIENT AND SEE IF THEY CAN BE OF FURTHER ASSISTANCE. 12/23/2020 [facility] PLEASE CONTACT WENDY - IF PATIENT IS WILLING TO TALK ABOUT RESOURCES AND OR HELP IN REGARDS TO SUBSTANCE USE. \T\nbsp;\T\nbsp;\T\nbsp;\T\nbsp;\T\nbsp;\T\ nbsp;\T\nbsp;\T\nbsp;\T\nbsp;\T\nbsp;\T\nbsp;\T\nbsp;\T\nbsp;\T\nbsp;\T\nbsp;\ T\nbsp;\T\nbsp;\T\nbsp;\T\nbsp;\T\nbsp;\T\nbsp;\T\nbsp;\T\nbsp;\T\nbsp;\T\nbsp; \T\nbsp;\T\nbsp;\T\nbsp;\T\nbsp;\T\nbsp;\T\nbsp;\T\nbsp;\T\nbsp;\T\nbsp;\T\ nbsp;\T\nbsp;\T\nbsp; WENDY CONTACT NUMBER: [phone] 11/21/2020 [facility] - CHW CALLED PATIENT- DID NOT ANSWER PHONE-UNABLE TO LEAVE A MESSAGE-VOICEMAIL NOT SET UP. Behavioral 12/23/2020 [facility] Discussed: Need to reestablish with psychiatric services; contact psychiatric nurse practitioner Ida and inquire if your Medicare is accepted. Patient reports that his Latuda, lithium, Depakote, BuSpar, and trazodone are currently being maintained by [facility] until patient establishes care elsewhere.\T\nbsp;\T\nbsp; E.D. VISIT COUNT (12 MO.) 2 [facility]. 4 [facility] [address] [facility] [facility]. TOTAL 20 NOTE: Visits indicate total known visits. ED/UCC VISIT TRACKING (12 MO.) 04/19/2022 20:05 [facility] [place] TYPE: Emergency COMPLAINT: - HALLUCINATIONS, MEDICATION REFILL 04/03/2022 19:41 [facility] [place] TYPE: Emergency COMPLAINT: - SKIN PROBLEM DIAGNOSES: - Personal history of nicotine dependence - Corns and callosities - Superficial frostbite of left foot, initial encounter - Exposure to excessive natural cold, initial encounter - Superficial frostbite of right foot, initial encounter - Essential (primary) hypertension - Superficial frostbite of right hand, initial encounter - Superficial frostbite of left hand, initial encounter - Allergy status to other drugs, medicaments and biological substances - Other chcf (current) drug therapy 03/26/2022 19:14 [facility] [place] TYPE: Emergency COMPLAINT: - SKIN PROBLEM DIAGNOSES: - Cutaneous abscess of abdominal wall - Personal history of nicotine dependence - Essential (primary) hypertension - Allergy status to other drugs, medicaments and biological substances 03/19/2022 13:56 [facility] [place] TYPE: Emergency COMPLAINT: - R ARM INJURY, R FOOT BLISTERS DIAGNOSES: - Abrasion, right lower leg, initial encounter - Essential (primary) hypertension - Allergy status to other drugs, medicaments and biological substances - Abrasion of right upper arm, initial encounter - Abrasion, left lower leg, initial encounter - Abrasion of other part of head, initial encounter - Other cause of strike by thrown, projected or falling object, initial encounter - Other superintendent container terminal (current) drug therapy - Personal history of nicotine dependence - Abrasion of left upper arm, initial encounter - Other stimulant abuse, uncomplicated 02/08/2022 11:19 [facility] [place] TYPE: Emergency COMPLAINT: - CHILLS,SWEATS 02/03/2022 22:22 [facility] [place] TYPE: Emergency DIAGNOSES: - Cellulitis, unspecified - Unspecified multiple injuries, initial encounter - Opioid dependence with unspecified opioid-induced disorder - back infection 02/03/2022 08:03 [facility] [place] TYPE: Emergency COMPLAINT: - SKIN PROBLEM DIAGNOSES: - Homelessness unspecified - Allergy status to other drugs, medicaments and biological substances - Personal history of nicotine dependence - Other chcf (current) drug therapy - Essential (primary) hypertension - Cutaneous abscess, unspecified 02/02/2022 00:31 [facility] [place] TYPE: Emergency DIAGNOSES: - MRSA - Excoriation (skin-picking) disorder 01/26/2022 02:16 [facility] [place] TYPE: Emergency DIAGNOSES: - MRSA - Cellulitis, unspecified - Personal history of Methicillin resistant Staphylococcus aureus infection 01/20/2022 14:14 [facility] [place] TYPE: Emergency DIAGNOSES: - Cellulitis of face - POSSIBLE MRSA RIGHT SIDE FACE 12/25/2021 15:28 [facility] [place] TYPE: Emergency COMPLAINT: - SKIN PROBLEM 12/18/2021 16:57 [facility] [place] TYPE: Emergency COMPLAINT: - SKIN PROBLEM [facility]13/2021 [facility] COMPLAINT: - Recurrent Skin Infections DIAGNOSES: - Recurrent Skin Infections - Cellulitis, unspecified 07/10/2021 15:58 [facility] COMPLAINT: - Medication Refill DIAGNOSES: [...] - Schizoaffective disorder, bipolar type - Other superintendent container terminal (current) drug therapy - Opioid dependence with [...] Cellulitis of right lower limb - Other superintendent container terminal (current) drug therapy - Cellulitis of right [...] right upper arm, initial encounter - Other chcf (current) drug therapy - Personal history of nicotine dependence - Unspecified open wound of right upper arm, initial encounter - HOMELESSNESS UNSPECIFIED - Local infection of the skin and subcutaneous tissue, unspecified INPATIENT VISIT TRACKING (12 MO.) No inpatient visits to display in this time frame [email or web address]
[2022-04-19] MEDS ORDERED: ZYPREXA10 MG PO (21:12)
== END 2022-04-19 21:27 | disposition home or self-care (01) ==
LOC: ED 20:04
DX: Z76.0 Encounter for issue of repeat prescription (principal); I10 Essential (primary) hypertension; F43.10 Post-traumatic stress disorder, unspecified; Z87.891 Personal history of nicotine dependence; Z88.8 Allergy status to other drugs, medicaments and biological substances; Z79.899 Other long term (current) drug therapy
CPT/HCPCS: 99281; A9270

== ENCOUNTER 2022-04-27 20:28 | Emergency (ER) | payer MEDICARE, OTHER ==
[~2022-04-27] VITALS: Ht 185.4 cm; Wt 90.8 kg
--- OUTSIDE RECORDS SUMMARY | 2022-04-27 20:30 | XMS ---
PreManage Notification: RADHA GOOD Security Manager Resort Events 3 event(s) in the past 18 months Most recent security events: Elopement at [facility] 12/25/2021 15:28 - Patient eloped before treatment completed. - Patient with suicidal and/or homicidal ideations eloped. - Patient eloped with IV in place. Details: PATIENT LWBS Elopement at [facility] 12/18/2021 16:57 - Patient eloped before treatment completed. - Patient with suicidal and/or homicidal ideations eloped. - Patient eloped with IV in place. Details: PATIENT LWBS Elopement at [facility] 05/02/2021 00:45 - Other Details: PATIENT LEFT AMA CRITERIA MET - 6 ED Visits in 6 Months - [facility] - 2 Visits in 30 Days - [facility] - Has Care Guidelines - Group Notification CARE PROVIDERS BRENNA REYES Nurse Practitioner: Family 02/23/2021-Current PHONE: [phone] Savage Barragan [facility] 04/15/2018-Current PHONE: [phone] [place] Kyree Community Health Worker 03/01/2022-Current PHONE: [phone] Care Guidelines exist for the following facilities: [facility] ( 08/01/2020 ) Care History Medical/Surgical 05/02/2021 [facility] - W CONTACTED WENDY- SPOKE WITH KRISHAN-THEY HAVE HELPED PATIENT ESTABLISH WITH THE [facility] OF 05/01/21. - WENDY WILL CONTACT PATIENT AND SEE IF THEY CAN BE OF FURTHER ASSISTANCE. 12/23/2020 [facility] PLEASE CONTACT WENDY - IF PATIENT IS WILLING TO TALK ABOUT RESOURCES AND OR HELP IN REGARDS TO SUBSTANCE USE. \T\nbsp;\T\nbsp;\T\nbsp;\T\nbsp;\T\nbsp;\T\ nbsp;\T\nbsp;\T\nbsp;\T\nbsp;\T\nbsp;\T\nbsp;\T\nbsp;\T\nbsp;\T\nbsp;\T\nbsp;\ T\nbsp;\T\nbsp;\T\nbsp;\T\nbsp;\T\nbsp;\T\nbsp;\T\nbsp;\T\nbsp;\T\nbsp;\T\nbsp; \T\nbsp;\T\nbsp;\T\nbsp;\T\nbsp;\T\nbsp;\T\nbsp;\T\nbsp;\T\nbsp;\T\nbsp;\T\ nbsp;\T\nbsp;\T\nbsp; WENDY CONTACT NUMBER: [phone] 11/21/2020 [facility] - CHW CALLED PATIENT- DID NOT ANSWER PHONE-UNABLE TO LEAVE A MESSAGE-VOICEMAIL NOT SET UP. Behavioral 12/23/2020 [facility] Discussed: Need to reestablish with psychiatric services; contact psychiatric nurse practitioner Ida and inquire if your Medicare is accepted. Patient reports that his Latuda, lithium, Depakote, BuSpar, and trazodone are currently being maintained by [facility] until patient establishes care elsewhere.\T\nbsp;\T\nbsp; E.D. VISIT COUNT (12 MO.) 2 [facility] 4 [facility] 1 [facility] 14 [facility]. TOTAL 21 NOTE: Visits indicate total known visits. ED/UCC VISIT TRACKING (12 MO.) 04/27/2022 20:28 [facility] [place] TYPE: Emergency COMPLAINT: - SKIN PROBLEM 04/19/2022 20:05 [facility] [place] TYPE: Emergency COMPLAINT: - HALLUCINATIONS, MEDICATION REFILL DIAGNOSES: - Other watermaster (current) drug therapy - Personal history of nicotine dependence - Post-traumatic stress disorder, unspecified - Allergy status to other drugs, medicaments and biological substances - Essential (primary) hypertension - Encounter for issue of repeat prescription 04/03/2022 19:41 [facility] [place] TYPE: Emergency COMPLAINT: - SKIN PROBLEM DIAGNOSES: - Superficial frostbite of right hand, initial encounter - Superficial frostbite of left hand, initial encounter - Allergy status to other drugs, medicaments and biological substances - Other mcc (current) drug therapy - Personal history of nicotine dependence - Corns and callosities - Superficial frostbite of left foot, initial encounter - Exposure to excessive natural cold, initial encounter - Superficial frostbite of right foot, initial encounter - Essential (primary) hypertension 03/26/2022 19:14 [facility] [place] TYPE: Emergency COMPLAINT: - SKIN PROBLEM DIAGNOSES: - Essential (primary) hypertension - Allergy status to other drugs, medicaments and biological substances - Cutaneous abscess of abdominal wall - Personal history of nicotine dependence 03/19/2022 13:56 [facility] [place] TYPE: Emergency COMPLAINT: - R ARM INJURY, R FOOT BLISTERS DIAGNOSES: - Other mcc (current) drug therapy - Personal history of nicotine dependence - Abrasion of left upper arm, initial encounter - Other stimulant abuse, uncomplicated - Abrasion, right lower leg, initial encounter - Essential (primary) hypertension - Allergy status to other drugs, medicaments and biological substances - Abrasion of right upper arm, initial encounter - Abrasion, left lower leg, initial encounter - Abrasion of other part of head, initial encounter - Other cause of strike by thrown, projected or falling object, initial encounter 02/08/2022 11:19 [facility] [place] TYPE: Emergency COMPLAINT: - CHILLS,SWEATS 02/03/2022 22:22 [facility] [place] TYPE: Emergency DIAGNOSES: - Opioid dependence with unspecified opioid-induced disorder - back infection - Cellulitis, unspecified - Unspecified multiple injuries, initial encounter 02/03/2022 08:03 [facility] [place] TYPE: Emergency COMPLAINT: - SKIN PROBLEM DIAGNOSES: - Essential (primary) hypertension - Cutaneous abscess, unspecified - Homelessness unspecified - Allergy status to other drugs, medicaments and biological substances - Personal history of nicotine dependence - Other mcc (current) drug therapy 02/02/2022 00:31 [facility] [place] TYPE: Emergency DIAGNOSES: - Excoriation (skin-picking) disorder - MRSA 01/26/2022 02:16 [facility] [place] TYPE: Emergency DIAGNOSES: - Cellulitis, unspecified - Personal history of Methicillin resistant Staphylococcus aureus infection - MRSA 01/20/2022 14:14 [facility] [place] TYPE: Emergency DIAGNOSES: - POSSIBLE MRSA RIGHT SIDE FACE - Cellulitis of face 12/25/2021 15:28 [facility] [place] TYPE: Emergency COMPLAINT: - SKIN PROBLEM 12/18/2021 16:57 [facility] [place] TYPE: Emergency COMPLAINT: - SKIN PROBLEM 08/13/2021 05:14 [facility] TYPE: Emergency COMPLAINT: - Recurrent Skin Infections DIAGNOSES: - Cellulitis, unspecified - Recurrent Skin Infections 07/10/2021 15:58 [facility] TYPE: Emergency COMPLAINT: - Medication Refill DIAGNOSES: - Medication Refill - Encounter for issue of repeat prescription 06/04/2021 19:38 [facility] [place] TYPE: Emergency DIAGNOSES: - Suspected Infection - Methicillin resistant Staphylococcus aureus infection as the cause of diseases classified elsewhere - Skin Problem - Cough, unspecified - Cellulitis, unspecified 05/02/2021 00:45 [facility] [place] TYPE: Emergency COMPLAINT: - LOWER BACK PAIN,RT THIGH PAIN 04/29/2021 16:44 [facility] [place] TYPE: Emergency COMPLAINT: - MEDICAL CLEARANCE DIAGNOSES: - Essential (primary) hypertension - Delusional disorders - Personal history of nicotine dependence - Unspecified abdominal pain - Allergy status to other drugs, medicaments and biological substances - Schizoaffective disorder, bipolar type - Other watermaster (current) drug therapy - Opioid dependence with withdrawal 04/29/2021 00:01 [facility] [place] TYPE: Emergency COMPLAINT: - ABD PAIN DIAGNOSES: - Left lower quadrant abdominal tenderness - Allergy status to other drugs, medicaments and biological substances - Personal history of nicotine dependence - Personal history of pneumonia (recurrent) - Left lower quadrant pain - Other psychoactive substance abuse, uncomplicated - Essential (primary) hypertension 04/28/2021 16:47 [facility] [place] TYPE: Emergency COMPLAINT: - ABDOMINAL PAIN DIAGNOSES: - Allergy status to other drugs, medicaments and biological substances - Personal history of nicotine dependence - Cellulitis of right lower limb - Other mcc (current) drug therapy - Cellulitis of right upper limb - Essential (primary) hypertension Plus 1 More Visit INPATIENT VISIT TRACKING (12 MO.) No inpatient visits to display in this time frame [email or web address]
[2022-04-27] MEDS ORDERED: BACTRIM DS TAB1 EACH PO ×2 (20:44→20:59)
[2022-04-27] MEDS ORDERED: CENTANY30 GM TOP ×2 (20:44→20:59)
[2022-04-27] MEDS ORDERED: OLANZAPINE10 MG PO (20:47)
== END 2022-04-27 21:02 | disposition home or self-care (01) ==
LOC: ED 20:28
DX: L73.9 Follicular disorder, unspecified (principal); I10 Essential (primary) hypertension; Z87.891 Personal history of nicotine dependence; Z88.8 Allergy status to other drugs, medicaments and biological substances; Z79.899 Other long term (current) drug therapy
CPT/HCPCS: 99282; A9270

== ENCOUNTER 2022-05-08 12:53 | Emergency (ER) | payer MEDICARE, OTHER ==
[~2022-05-08] VITALS: Ht 185.4 cm; Wt 95.4 kg
--- OUTSIDE RECORDS SUMMARY | 2022-05-08 12:56 | XMS ---
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 - Patient with suicidal and/or homicidal ideations eloped. - Patient eloped with IV in place. Details: PATIENT LWBS Elopement at [facility] 12/18/2021 16:57 - Patient eloped before treatment completed. - Patient with suicidal and/or homicidal ideations eloped. - Patient eloped with IV in place. Details: PATIENT LWBS Elopement at [facility] 05/02/2021 00:45 - Other Details: PATIENT LEFT AMA CRITERIA MET - 6 ED Visits in 6 Months - [facility] - 2 Visits in 30 Days - Group Notification - [facility] - Has Care Guidelines CARE PROVIDERS BRENNA REYES Nurse Practitioner: Family 02/23/2021-Current PHONE: [phone] Savage Barragan [facility] 04/15/2018-Current PHONE: [phone] [place]Kyree Community Health Worker 03/01/2022-Current PHONE: [phone] Care Guidelines exist for the following facilities: [facility] ( 08/01/2020 ) Care History Behavioral 12/23/2020 [facility] Discussed: Need to reestablish with psychiatric services; contact psychiatric nurse practitioner Ida and inquire if your Medicare is accepted. Patient reports that his Latuda, lithium, Depakote, BuSpar, and trazodone are currently being maintained by [facility] until patient establishes care elsewhere.\T\nbsp;\T\nbsp; Medical/Surgical 05/02/2021 [facility] - CHW CONTACTED WENDY- SPOKE WITH KRISHAN-THEY HAVE HELPED PATIENT ESTABLISH WITH THE [facility] OF 05/01/21. - WENDY WILL CONTACT PATIENT AND SEE IF THEY CAN BE OF FURTHER ASSISTANCE. 12/23/2020 [facility] PLEASE CONTACT WENDY - IF PATIENT IS WILLING TO TALK ABOUT RESOURCES AND OR HELP IN REGARDS TO SUBSTANCE USE. \T\nbsp;\T\nbsp;\T\nbsp;\T\nbsp;\T\nbsp;\T\ nbsp;\T\nbsp;\T\nbsp;\T\nbsp;\T\nbsp;\T\nbsp;\T\nbsp;\T\nbsp;\T\nbsp;\T\nbsp;\ T\nbsp;\T\nbsp;\T\nbsp;\T\nbsp;\T\nbsp;\T\nbsp;\T\nbsp;\T\nbsp;\T\nbsp;\T\nbsp; \T\nbsp;\T\nbsp;\T\nbsp;\T\nbsp;\T\nbsp;\T\nbsp;\T\nbsp;\T\nbsp;\T\nbsp;\T\ nbsp;\T\nbsp;\T\nbsp; WENDY CONTACT NUMBER: [phone] 11/21/2020 [facility] - CHW CALLED PATIENT- DID NOT ANSWER PHONE-UNABLE TO LEAVE A MESSAGE-VOICEMAIL NOT SET UP. E.D. VISIT COUNT (12 MO.) 2 [facility]. 4 [facility] 1 [facility]. TOTAL 17 NOTE: Visits indicate total known visits. ED/UCC VISIT TRACKING (12 MO.) 05/08/2022 12:54 [facility] [place] TYPE: Emergency COMPLAINT: - SKIN PROBLEM 04/27/2022 20:28 [facility] [place] TYPE: Emergency COMPLAINT: - SKIN PROBLEM DIAGNOSES: - Essential (primary) hypertension - Follicular disorder, unspecified - Allergy status to other drugs, medicaments and biological substances - Other intermediate (current) drug therapy - Personal history of nicotine dependence 04/19/2022 20:05 [facility] [place] TYPE: Emergency COMPLAINT: - HALLUCINATIONS, MEDICATION REFILL DIAGNOSES: - Personal history of nicotine dependence - Post-traumatic stress disorder, unspecified - Allergy status to other drugs, medicaments and biological substances - Essential (primary) hypertension - Encounter for issue of repeat prescription - Other termite technician (current) drug therapy 04/03/2022 19:41 [facility] [place] TYPE: Emergency COMPLAINT: - SKIN PROBLEM DIAGNOSES: - Allergy status to other drugs, medicaments and biological substances - Other termite technician (current) drug therapy - Personal history of nicotine dependence - Corns and callosities - Superficial frostbite of left foot, initial encounter - Exposure to excessive natural cold, initial encounter - Superficial frostbite of right foot, initial encounter - Essential (primary) hypertension - Superficial frostbite of right hand, initial encounter - Superficial frostbite of left hand, initial encounter 03/26/2022 19:14 [facility] [place] TYPE: Emergency COMPLAINT: - SKIN PROBLEM DIAGNOSES: - Allergy status to other drugs, medicaments and biological substances - Cutaneous abscess of abdominal wall - Personal history of nicotine dependence - Essential (primary) hypertension 03/19/2022 13:56 [facility] [place] TYPE: Emergency COMPLAINT: - R ARM INJURY, R FOOT BLISTERS DIAGNOSES: - Abrasion of left upper arm, initial [...] or falling object, initial encounter - Other termite technician (current) drug therapy - Personal history of nicotine dependence 02/08/2022 11:19 [facility] [place] TYPE: Emergency COMPLAINT: - CHILLS,SWEATS 02/03/2022 22:22 [facility] [place] TYPE: Emergency DIAGNOSES: - back infection - Cellulitis, unspecified - Unspecified multiple injuries, initial encounter - Opioid dependence with unspecified opioid-induced disorder 02/03/2022 08:03 [facility] [place] TYPE: Emergency COMPLAINT: - SKIN PROBLEM DIAGNOSES: - Cutaneous abscess, unspecified - Homelessness unspecified - Allergy status to other drugs, medicaments and biological substances - Personal history of nicotine dependence - Other termite technician (current) drug therapy - Essential (primary) hypertension 02/02/2022 00:31 [facility] [place] TYPE: Emergency DIAGNOSES: - Excoriation (skin-picking) disorder - MRSA 01/26/2022 02:16 [facility] [place] TYPE: Emergency DIAGNOSES: - Personal history of Methicillin resistant Staphylococcus aureus infection - MRSA - Cellulitis, unspecified 01/20/2022 14:14 [facility] [place] TYPE: Emergency DIAGNOSES: - POSSIBLE MRSA RIGHT SIDE FACE - Cellulitis of face 12/25/2021 15:[address] [facility] [place] TYPE: Emergency COMPLAINT: - SKIN PROBLEM 12/18/2021 16:[address] [facility] [place] TYPE: Emergency COMPLAINT: - SKIN PROBLEM 08/13/2021 05:14 [facility] [place] . TYPE: Emergency COMPLAINT: - Recurrent Skin Infections DIAGNOSES: - Cellulitis, unspecified - Recurrent Skin Infections 07/10/2021 15:58 [facility] [place] . TYPE: Emergency COMPLAINT: - Medication Refill DIAGNOSES: - Medication Refill - Encounter for issue of repeat prescription 06/04/2021 19:38 [facility] [place] TYPE: Emergency DIAGNOSES: - Methicillin resistant Staphylococcus aureus infection as the cause of diseases classified elsewhere - Skin Problem - Cough, unspecified - Cellulitis, unspecified - Suspected Infection INPATIENT VISIT TRACKING (12 MO.) No inpatient visits to display in this time frame [email or web address]
[2022-05-08] MEDS ORDERED: DOXYCYCLINE MO100 MG PO (13:21)
[2022-05-08] MEDS ORDERED: BACTRIM DS TAB1 EACH PO (14:14)
[2022-05-08] MEDS ORDERED: VISTARIL25 MG PO (14:14)
== END 2022-05-08 14:48 | disposition home or self-care (01) ==
LOC: ED 12:53
DX: L29.9 Pruritus, unspecified (principal); B95.62 Methicillin resistant Staphylococcus aureus infection as the cause of diseases classified elsewhere; I10 Essential (primary) hypertension; Z87.891 Personal history of nicotine dependence; Z88.8 Allergy status to other drugs, medicaments and biological substances
CPT/HCPCS: 99282

== ENCOUNTER 2022-06-02 12:26 | Emergency (ER) | payer MEDICARE, OTHER ==
[~2022-06-02] VITALS: Ht 185.4 cm; Wt 95.4 kg
[~2022-06-02 12:26] MED LIST changes: +DOXYCYCLINE MO100 MG PO
--- OUTSIDE RECORDS SUMMARY | 2022-06-02 12:28 | XMS ---
PreManage Notification: RADHA GOOD Security Skin Pass Operator Events 3 event(s) in the past 18 months Most recent security events: Elopement at [facility] 12/25/2021 15:28 - Patient eloped before treatment completed. - Patient with suicidal and/or homicidal ideations eloped. - Patient eloped with IV in place. Details: PATIENT LWBS Elopement at [facility] 12/18/2021 16:57 - Patient eloped before treatment completed. - Patient with suicidal and/or homicidal ideations eloped. - Patient eloped with IV in place. Details: PATIENT LWBS Elopement at [facility] 05/02/2021 00:45 - Other Details: PATIENT LEFT AMA CRITERIA MET - PDMP - [facility] - Has Care Guidelines - [facility] - 2 Visits in 30 Days - 6 ED Visits in 6 Months - Group Notification CARE PROVIDERS BRENNA REYES Nurse Practitioner: Family 02/23/2021-Current PHONE: [phone] Savage Barragan [facility] [place] 04/15/2018-Current PHONE: [phone] [place] [facility] Community [facility] Worker 03/01/2022-Current PHONE: [phone] Care Guidelines exist for the following facilities: [facility] ( 08/01/2020 ) Care History Behavioral 12/23/2020 [facility] Discussed: Need to reestablish with psychiatric services; contact psychiatric nurse practitioner Ida and inquire if your Medicare is accepted. Patient reports that his Latuda, lithium, Depakote, BuSpar, and trazodone are currently being maintained by [facility] until patient establishes care elsewhere.\T\nbsp;\T\nbsp; Medical/Surgical 05/02/2021 [facility] - [facility] CONTACTED [facility]- SPOKE WITH KRISHAN-THEY HAVE HELPED PATIENT ESTABLISH WITH THE [facility] 05/01/21. - [facility] WILL CONTACT PATIENT AND SEE IF THEY CAN BE OF FURTHER ASSISTANCE. 12/23/2020 [facility] PLEASE CONTACT [facility] - IF PATIENT IS WILLING TO TALK ABOUT RESOURCES AND OR HELP IN REGARDS TO SUBSTANCE USE. \T\nbsp;\T\nbsp;\T\nbsp;\T\nbsp;\T\nbsp;\T\ nbsp;\T\nbsp;\T\nbsp;\T\nbsp;\T\nbsp;\T\nbsp;\T\nbsp;\T\nbsp;\T\nbsp;\T\nbsp;\ T\nbsp;\T\nbsp;\T\nbsp;\T\nbsp;\T\nbsp;\T\nbsp;\T\nbsp;\T\nbsp;\T\nbsp;\T\nbsp; \T\nbsp;\T\nbsp;\T\nbsp;\T\nbsp;\T\nbsp;\T\nbsp;\T\nbsp;\T\nbsp;\T\nbsp;\T\ nbsp;\T\nbsp;\T\nbsp; [facility] CONTACT NUMBER: [phone] 11/21/2020 [facility] - CHW CALLED PATIENT- DID NOT ANSWER PHONE-UNABLE TO LEAVE A MESSAGE-VOICEMAIL NOT SET UP. E.D. VISIT COUNT (12 MO.) 2 [facility]. 4 [facility] 1 [facility] 12 [facility] TOTAL 19 NOTE: Visits indicate total known visits. ED/UCC VISIT TRACKING (12 MO.) 06/02/2022 12:26 [facility] [place] TYPE: Emergency COMPLAINT: - SKIN PROBLEM 05/22/2022 11:03 [facility] [place] TYPE: [place] COMPLAINT: - R ARM STIFF/SWOLLEN 05/08/2022 12:54 [facility] [place] TYPE: Emergency COMPLAINT: - SKIN PROBLEM DIAGNOSES: - Essential (primary) hypertension - Methicillin resistant Staphylococcus aureus infection as the cause of diseases classified elsewhere - Allergy status to other drugs, medicaments and biological substances - Personal history of nicotine dependence - Pruritus, unspecified 04/27/2022 20:28 [facility] [place] TYPE: [place] COMPLAINT: - SKIN PROBLEM DIAGNOSES: - Allergy status to other drugs, medicaments and biological substances - Other longterm (current) drug therapy - Personal history of nicotine dependence - Essential (primary) hypertension - Follicular disorder, unspecified 04/19/2022 20:05 [facility] [place] TYPE: [place] COMPLAINT: - HALLUCINATIONS, MEDICATION REFILL DIAGNOSES: - Essential (primary) hypertension - Encounter for issue of repeat prescription - Other longterm (current) drug therapy - Personal history of nicotine dependence - Post-traumatic stress disorder, unspecified - Allergy status to other drugs, medicaments and biological substances 04/03/2022 19:41 [facility] [place] TYPE: Emergency COMPLAINT: - SKIN PROBLEM DIAGNOSES: - Superficial frostbite of left foot, initial encounter - Exposure to excessive natural cold, initial encounter - Superficial frostbite of right foot, initial encounter - Essential (primary) hypertension - Superficial frostbite of right hand, initial encounter - Superficial frostbite of left hand, initial encounter - Allergy status to other drugs, medicaments and biological substances - Other longterm (current) drug therapy - Personal history of nicotine dependence - Corns and callosities 03/26/2022 19:14 [facility] [place] TYPE: Emergency COMPLAINT: - SKIN PROBLEM DIAGNOSES: - Personal history of nicotine dependence - Essential (primary) hypertension - Allergy status to other drugs, medicaments and biological substances - Cutaneous abscess of abdominal wall 03/19/2022 13:56 [facility] [place] TYPE: Emergency COMPLAINT: - R ARM INJURY, R FOOT BLISTERS DIAGNOSES: - Allergy status to other drugs, medicaments and biological substances - Abrasion of right upper arm, initial encounter - Abrasion, left lower leg, initial encounter - Abrasion of other part of head, initial encounter - Other cause of strike by thrown, projected or falling object, initial encounter - Other manager intermediate (current) drug therapy - Personal history of nicotine dependence - Abrasion of left upper arm, initial encounter - Other stimulant abuse, uncomplicated - Abrasion, right lower leg, initial encounter - Essential (primary) hypertension 02/08/2022 11:19 [facility] [place] TYPE: Emergency COMPLAINT: - CHILLS,SWEATS 02/03/2022 22:22 [facility] [place] TYPE: Emergency DIAGNOSES: - Unspecified multiple injuries, initial encounter - Opioid dependence with unspecified opioid-induced disorder - back infection - Cellulitis, unspecified 02/03/2022 08:03 [facility] [place] TYPE: Emergency COMPLAINT: - SKIN PROBLEM DIAGNOSES: - Personal history of nicotine dependence - Other longterm (current) drug therapy - Essential (primary) hypertension - Cutaneous abscess, unspecified - Homelessness unspecified - Allergy status to other drugs, medicaments and biological substances 02/02/2022 00:31 [facility] [place] TYPE: Emergency DIAGNOSES: - MRSA - Excoriation (skin-picking) disorder 01/26/2022 02:16 [facility] [place] TYPE: Emergency DIAGNOSES: - MRSA - Cellulitis, unspecified - Personal history of Methicillin resistant Staphylococcus aureus infection 01/20/2022 14:14 [facility] [place] TYPE: Emergency DIAGNOSES: - Cellulitis of face - POSSIBLE MRSA RIGHT SIDE FACE 12/25/2021 15:28 [facility] [place] TYPE: Emergency COMPLAINT: - SKIN PROBLEM 12/18/2021 16:57 [facility] [place] TYPE: Emergency COMPLAINT: - SKIN PROBLEM 08/13/2021 05:14 [facility] TYPE: Emergency COMPLAINT: - Recurrent Skin Infections DIAGNOSES: - Recurrent Skin Infections - Cellulitis, unspecified 07/10/2021 15:58 [facility] [place] TYPE: Emergency COMPLAINT: - Medication Refill DIAGNOSES: - Encounter for issue of repeat prescription - Medication Refill 06/04/2021 19:38 [facility] [place] TYPE: Emergency DIAGNOSES: - Cough, unspecified - Cellulitis, unspecified - Suspected Infection - Methicillin resistant Staphylococcus aureus infection as the cause of diseases classified elsewhere - Skin Problem INPATIENT VISIT TRACKING (12 MO.) No inpatient visits to display in this time frame [email or web address]
[2022-06-02] MEDS ORDERED: CENTANY30 GM TOP (13:49)
[2022-06-02] MEDS ORDERED: ZYPREXA20 MG PO (13:49)
== END 2022-06-02 14:01 | disposition home or self-care (01) ==
LOC: ED 12:26
DX: L98.9 Disorder of the skin and subcutaneous tissue, unspecified (principal); F20.9 Schizophrenia, unspecified; Z76.0 Encounter for issue of repeat prescription; I10 Essential (primary) hypertension; Z87.891 Personal history of nicotine dependence; Z88.8 Allergy status to other drugs, medicaments and biological substances; Z79.899 Other long term (current) drug therapy
CPT/HCPCS: 99282